=== PATIENT | female | born 1940 | race Caucasian/White ===

== ENCOUNTER → 2020-08-27 08:06 | Outpatient (BNVA) | payer MEDICARE, SELFPAY | PROVIDERS: PCP Internal Medicine; Referring Provider Internal Medicine; Visit Provider Obstetrics & Gynecology | DX: N39.46 Mixed incontinence (principal) | CPT/HCPCS: 81002; 99203 ==

== ENCOUNTER 2020-11-10 10:26 | Outpatient (REF) | payer MEDICARE, SELFPAY ==
--- NOTE | 2020-11-10 10:30 | MM_ITS ---
EXAMINATION: MM SCREENING DIGITAL BREAST TOMOSYNTHESIS, BILATERAL CLINICAL INFORMATION: Left breast cancer 2016. Remote right breast biopsy. COMPARISON: Mammography: 11/06/2019, 10/22/2018, 10/18/2017 TECHNIQUE: Digital breast tomosynthesis is performed in both the craniocaudal and mediolateral oblique views along with computer-aided detection (CAD). Synthesized 2D images are generated from the tomosynthesis. FINDINGS: The breasts are heterogeneously dense, which may obscure small masses (ACR BI-RADS breast composition Category c). Parenchymal pattern is similar to prior studies. There are minor postsurgical changes again seen left breast and biopsy clip marker right breast lower inner quadrant. Scattered bilateral asymmetries are stable. There is no developing density. No abnormal calcifications. No significant changes from prior exams. MM/MM tomosynthesis screening BI IMPRESSION: No significant changes from prior exams. ASSESSMENT: BI-RADS 2: Benign RECOMMENDATION: Routine annual mammography screening. This patient's information was entered into a reminder system with a target due date for their next mammogram.
== END 2020-11-10 10:27 | disposition home or self-care (01) ==
LOC: HO.MAMMO 10:26
PROVIDERS: PCP Internal Medicine; Visit Provider Surgery
DX: Z12.31 Encounter for screening mammogram for malignant neoplasm of breast (principal)
CPT/HCPCS: 77063; 77067

== ENCOUNTER → 2020-11-26 10:15 | Outpatient (BNVA) | payer MEDICARE, SELFPAY | PROVIDERS: PCP Internal Medicine; Visit Provider Surgery | DX: Z85.3 Personal history of malignant neoplasm of breast (principal) | CPT/HCPCS: 99212 ==

== ENCOUNTER → 2020-12-08 14:44 | Outpatient (BNVA) | payer MEDICARE, SELFPAY | PROVIDERS: PCP Internal Medicine; Visit Provider Surgery | DX: Z85.3 Personal history of malignant neoplasm of breast (principal) | CPT/HCPCS: 99212 ==

== ENCOUNTER → 2021-05-13 11:01 | Outpatient (BNVA) | payer MEDICARE, SELFPAY | PROVIDERS: PCP Internal Medicine; Referring Provider Internal Medicine; Visit Provider Surgery | DX: Z85.3 Personal history of malignant neoplasm of breast (principal) | CPT/HCPCS: 99212 ==

== ENCOUNTER 2021-08-04 07:54 | Outpatient (REF) | payer MEDICARE, SELFPAY ==
[2021-08-04 09:30] LABS: TSH reflex Free T4 0.88 uIU/mL (0.32-4.0)
== END 2021-08-04 07:55 | disposition home or self-care (01) ==
LOC: HO.LAB 07:54
PROVIDERS: PCP Internal Medicine; Visit Provider Internal Medicine Endocrinology, Diabetes & Metabolism
DX: E04.9 Nontoxic goiter, unspecified (principal)
CPT/HCPCS: 36415; 84443

== ENCOUNTER 2021-08-06 09:12 | Outpatient (REF) | payer MEDICARE, SELFPAY ==
[2021-08-06 10:31] LABS: MANUAL DIFF FLAG NO
[2021-08-06 10:41] LABS: Basophils Percent Auto 0.6 % (0-2); Eosinophils Absolute Auto 0.1 X10*3/uL (0.0-0.4); Eosinophils Percent Auto 2.3 % (0-4); Hematocrit 39.4 % (37-47); Hemoglobin 12.8 g/dl (12.0-16.0); Imm Gran Abs Auto 0.01 X10*3/uL (0.00-0.03); Imm Gran Pct Auto 0.2 % (0.0-0.4); Lymphocytes Absolute Auto 1.5 X10*3/uL (1.2-4.9); Lymphocytes Percent Auto 30.9 % (20-40); Mean Corpuscular HGB Conc 32.5 g/dl (31.0-35.0); Mean Corpuscular Hemoglobin 30.3 pg (27.0-33.0); Mean Corpuscular Volume 93.4 fL (80-98); Mean Platelet Volume 9.1 fL (9.4-12.3); Monocytes Absolute Auto 0.5 X10*3/uL (0.1-1.2); Monocytes Percent Auto 10.8 % (2-11); Neutrophils Absolute Auto 2.6 X10*3/uL (2.0-8.3); Neutrophils Percent Auto 55.2 % (45-73); Platelet Count 272 X10*3/uL (160-400); Red Blood Count 4.22 X10*6/uL (4.20-5.50); Red Cell Distribution Width 13.3 % (11.0-16.0); White Blood Count 4.7 X10*3/uL (4.8-10.8)
[2021-08-06 10:55] LABS: Alanine Aminotransferase 19 U/L (0-31); Aspartate Amino Transferase 23 U/L (5-31); Cholesterol 181 mg/dL; HDL Cholesterol 50 mg/dL; LDL Cholesterol Calculated 119 mg/dl; Triglycerides 63 mg/dL
[2021-08-06 11:32] LABS: Vitamin D 25-OH Total 61.3 ng/mL (>30)
== END 2021-08-06 09:13 | disposition home or self-care (01) ==
LOC: HO.LAB 09:12
PROVIDERS: PCP Internal Medicine; Visit Provider Internal Medicine
DX: D12.6 Benign neoplasm of colon, unspecified (principal); E04.2 Nontoxic multinodular goiter; M85.852 Other specified disorders of bone density and structure, left thigh
CPT/HCPCS: 36415; 80061; 82306; 84450; 84460; 85025

== ENCOUNTER 2021-11-23 10:09 | Outpatient (REF) | payer MEDICARE, SELFPAY ==
--- NOTE | ~2021-11-23 | MM_ITS ---
EXAMINATION: MM SCREENING DIGITAL BREAST TOMOSYNTHESIS, BILATERAL CLINICAL INFORMATION: Lumpectomy for invasive left breast cancer, 12/01/2016. Due for yearly exam. COMPARISON: Mammography: 11/10/2020, 11/06/2019, 10/22/2018, 10/18/2017, 12/01/2016 TECHNIQUE: Digital breast tomosynthesis is performed in both the craniocaudal and mediolateral oblique views along with computer-aided detection (CAD). Synthesized 2D images are generated from the tomosynthesis. FINDINGS: The breasts are heterogeneously dense, which may obscure small masses (ACR BI-RADS breast composition Category c). There are post therapy changes left breast with mild reduced breast size and minor scarring. Biopsy clip marker again noted on right lower inner quadrant. Neither breast shows interval mass or architectural abnormality or abnormal calcifications. No significant changes. MM/MM tomosynthesis screening BI IMPRESSION: No mammographic evidence of malignancy. Mild post therapy changes on left. ASSESSMENT: BI-RADS 2: Benign RECOMMENDATION: Routine annual mammography screening. This patient's information was entered into a reminder system with a target due date for their next mammogram.
--- NOTE | ~2021-11-23 | MM_ITS ---
EXAMINATION: BONE DENSITOMETRY CLINICAL INDICATION: Menopause. COMPARISON: Previous BD dated 02/22/2019 and baseline BD dated 11/11/2008. TECHNIQUE: Using a [employer] DXA System (software version: 13.1) manufactured by [employer], dual-energy x-ray absorptiometry was performed of the lumbar spine and left hip. The images are of good technical quality. Summary results are attached. FINDINGS: AP SPINE L1-L4: There is dextrocurvature lumbar spine and multilevel degenerative changes which may cause overestimation of the lumbar bone mineral density. Current: BMD 1.199 g/cm2, Z-score 2., T-score 0.2, normal, 1.7% increase from previous, 3.7% increase from baseline (<5% change is not significant). Prior: BMD 1.179 g/cm2. Baseline: BMD 1.156 g/cm2. LEFT FEMUR, NECK: Current: BMD 0.733 g/cm2, Z-score 0.1, T-score -2.2, osteopenia. Prior: BMD 0.750 g/cm2. Baseline: BMD 0.808 g/cm2. LEFT FEMUR, TOTAL: Current: BMD 0.787 g/cm2, Z-score 0.4, T-score -1.8, osteopenia, 2.5% decrease from previous, 7.8% decrease from baseline (<5% change is not significant). Prior: BMD 0.807 g/cm2. Baseline: BMD 0.854 g/cm2. IDENTIFIED RISK FACTORS: Menopause, height loss, history of fracture (adult). HISTORY OF FRACTURE: Femur/hip. MEDICATIONS: Vitamin D. MM/XR DEXA axial skeleton IMPRESSION: 1. DIAGNOSIS: Osteopenia based on the lowest T-score value of -2.2 in the femoral neck applying World Health Organization criteria. 2. 10-YEAR FRACTURE RISK PREDICTION, FRAX: Major osteoporotic fracture (clinical spine, forearm, hip or shoulder) 23.9%. Hip fracture 7.4%. 3. Treatment Recommendations: NOF guidelines recommend consideration for treatment in postmenopausal women and men age 50 and older presenting with the following: -A hip or vertebral (clinical or morphometric) fracture. -T-score less than or equal to -2.5 at the femoral neck or spine after appropriate evaluation to exclude secondary causes. -Low bone mass at the hip or spine and a 10-year fracture probability by FRAX of greater than or equal to 3% for hip fracture or greater than or equal to 20% for major osteoporotic fracture based on the [place] adapted WHO algorithm. 4. Other Recommendations: All treatment decisions require clinical judgment and consideration of individual patient factors, including patient preferences, comorbidities, previous drug use, risk factors not captured in the FRAX model (e.g. frailty, falls, vitamin D deficiency, increased bone turnover, interval significant decline in bone density) and possible under or overestimation of fracture risk by FRAX. Additional medical evaluation for secondary cause of low bone mineral density may be appropriate. FUTURE SCAN RECOMMENDATION: People with diagnosed cases of osteoporosis or at high risk for fracture should have regular bone mineral density tests. For patients eligible for Medicare, routine testing is allowed once every 2 years. The testing frequency can be increased to one year for patients who have rapidly progressing disease, those who are receiving or discontinuing medical therapy to restore bone mass, or have additional risk factors.
== END 2021-11-23 10:10 | disposition home or self-care (01) ==
LOC: HO.MAMMO 10:09
PROVIDERS: Visit Provider Internal Medicine
DX: Z12.31 Encounter for screening mammogram for malignant neoplasm of breast (principal); Z13.820 Encounter for screening for osteoporosis; M85.852 Other specified disorders of bone density and structure, left thigh; Z78.0 Asymptomatic menopausal state
CPT/HCPCS: 77063; 77067; 77080

== ENCOUNTER → 2021-11-29 11:06 | Outpatient (BNVA) | payer MEDICARE, SELFPAY | PROVIDERS: PCP Internal Medicine; Referring Provider Internal Medicine; Visit Provider Surgery | DX: Z85.3 Personal history of malignant neoplasm of breast (principal) | CPT/HCPCS: 99212 ==

== ENCOUNTER 2022-06-03 15:59 | Outpatient (REF) | payer MEDICARE, SELFPAY ==
--- NOTE | ~2022-06-03 | US_ITS ---
EXAMINATION: US THYROID CLINICAL INFORMATION: Nontoxic goiter. COMPARISON: Ultrasound soft tissue head/neck thyroid dated 06/19/2019 and 03/29/2018. TECHNIQUE: Linear transducer grayscale and color Doppler examination with attention to the region of the thyroid. FINDINGS: SIZE: Measurements of the thyroid lobes and nodules are given in sagittal, anteroposterior and transverse dimensions respectively. Right Thyroid Lobe: 7.3 x 3.2 x 3.0 cm, volume 36.7 mL. Previously 7.3 x 3.7 x 3.1 cm, volume 42.6 mL. Parenchyma: The gland echotexture is heterogeneous. Thyroid vascularity is increased. Left Thyroid Lobe: 6.8 x 3.7 x 3.1 cm, volume 40.8 mL. Previously 7.0 x 4.0 x 3.3 cm, volume 48.2 mL. Parenchyma: The gland echotexture is heterogeneous. Thyroid vascularity is increased. Isthmus: 2.2 cm in maximum AP dimension. Previously 1.4 cm. Estimated total number of nodules greater than or equal to 1 cm: 1. Steel Cutter nodules are described as follows: 1. Location: Left superior. Size: 1.3 x 0.7 x 1.1 cm, volume 0.5 mL. Previously: 1.3 x 0.7 x 1.1 cm, volume 0.5 mL. Nodule characteristics: Composition: Solid/almost completely solid (2). Echogenicity: Hypoechoic (2). Shape: Not taller than wide (0). Margins: Smooth (0). Echogenic Foci: Punctate echogenic foci (3). ACR TI-RADS total points: 7 ACR TI-RADS category: 5 Significant change in size (>/= 20% in 2 dimensions and minimal increase of 2 mm or 50% or greater increase in volume): None Change in features: None Change in ACR TI-RADS risk category: Not applicable NODES: No lymphadenopathy is seen in the tissue surrounding the thyroid gland. US/US thyroid IMPRESSION: Heterogeneous increased and hypervascular thyroid gland, likely goiter. There is a solitary nodule left upper pole which is stable. ACR TI-RADS RECOMMENDATION REFERENCE: Ultrasound-guided fine-needle aspiration, followup ultrasound, no further follow up. * TR1 (0 point) and TR 2 (2 points): No FNA or follow up * TR3 (3 points): FNA if more than or equal to 2.5 cm in maximum dimension, followup ultrasound in 1, 3 and 5 years if 1.5 to 2.4 cm in maximum dimension. * TR4 (4-6 points): FNA if more than or equal to 1.5 cm in maximum dimension, followup ultrasound in 1, 2, 3 and 5 years if 1 to 1.4 cm in maximum dimension. * TR5 (more than or equal to 7 points): FNA if more than or equal to 1 cm in maximum dimension, followup ultrasound every year for 5 years if 0.5 to 0.9 cm in maximum dimension. * TR3, TR4 or TR5 nodules that are below the size threshold for follow up receive no follow up.
== END 2022-06-03 16:00 | disposition home or self-care (01) ==
LOC: HO.US 15:59
PROVIDERS: PCP Internal Medicine; Visit Provider Internal Medicine Endocrinology, Diabetes & Metabolism
DX: E04.9 Nontoxic goiter, unspecified (principal)
CPT/HCPCS: 76536

== ENCOUNTER → 2022-06-13 10:45 | Outpatient (BNVA) | payer MEDICARE, SELFPAY | PROVIDERS: PCP Internal Medicine; Visit Provider Surgery | DX: Z85.3 Personal history of malignant neoplasm of breast (principal) | CPT/HCPCS: 99212 ==

== ENCOUNTER 2022-11-29 11:27 | Outpatient (REF) | payer MEDICARE, SELFPAY ==
--- NOTE | ~2022-11-29 | MM_ITS ---
EXAMINATION: MM SCREENING DIGITAL BREAST TOMOSYNTHESIS, BILATERAL CLINICAL INFORMATION: Screening. Asymptomatic. Left IDC status post lumpectomy 12/01/2016. Family history breast cancer, sister. Due for yearly. COMPARISON: Mammography: 11/23/2021, 11/10/2020, 11/06/2019, 10/22/2018, 10/18/2017 TECHNIQUE: Digital breast tomosynthesis is performed in both the craniocaudal and mediolateral oblique views along with computer-aided detection (CAD). Synthesized 2D images are generated from the tomosynthesis. FINDINGS: The breasts are heterogeneously dense, which may obscure small masses (ACR BI-RADS breast composition Category c). Parenchymal pattern is similar to prior studies. No significant mass or abnormal calcifications. There is no developing density or architectural abnormality. Minor post surgical changes again seen on the left. The axilla are unremarkable. No significant changes. MM/MM tomosynthesis screening BI IMPRESSION: No mammographic evidence of malignancy. ASSESSMENT: BI-RADS 2: Benign RECOMMENDATION: Routine annual mammography screening. This patient's information was entered into a reminder system with a target due date for their next mammogram.
== END 2022-11-29 11:28 | disposition home or self-care (01) ==
LOC: HO.MAMMO 11:27
PROVIDERS: PCP Internal Medicine; Visit Provider Internal Medicine
DX: Z12.31 Encounter for screening mammogram for malignant neoplasm of breast (principal)
CPT/HCPCS: 77063; 77067

== ENCOUNTER → 2022-12-05 14:02 | Outpatient (BNVA) | payer MEDICARE, SELFPAY | PROVIDERS: PCP Internal Medicine; Visit Provider Surgery | DX: Z85.3 Personal history of malignant neoplasm of breast (principal) | CPT/HCPCS: 99212 ==

== ENCOUNTER 2023-02-14 13:47 | Outpatient (AMB) | payer MEDICARE, SELFPAY ==
[2023-02-14 13:50] VITALS: BP 138/90; PULSE 97; TEMP 36.1; O2SAT 99; BMI 24.5
--- NOTE | 2023-02-14 13:50 | A.OFFPC_ITS ---
Vital Signs 02/14/23 13:50 Height 5 ft 2 in Weight 134 lb 8 oz BMI 24.5 BP 138/90 H Blood Pressure Location Lt brachial Position Sitting Pulse 97 Pulse Source Pulse Oximeter Temp 97.0 F Temp Source Skin Pulse Oximetry (%) 99 Oxygen Delivery Method Room Air Intake Visit Reasons: Transfer Care from Intake Note: Pt is here for f/u and having alot of pain left side back Sealer Operator Required: No Accompanied by: Self / Same As Patient Allergies iodine [IODINE] Allergy (Unknown, Verified 08/22/23 14:00) RASH, rash, itching, redness latex Allergy (Unknown, Verified 08/22/23 14:00) rash Medication List - Last Reconciled 02/14/23 by Pilo Kemp MD aspirin 81 mg PO DAILY cholecalciferol (vitamin D3) 50 mcg PO DAILY multivitamin (Daily Multi-Vitamin tablet) 1 tab PO DAILY Tobacco use date assessed: 02/14/23 Fall risk assessment: No Falls in past year Last assessed Fall Risk: 02/14/23 [facility] Transfer Care from HPI Details Patient comes in today for her follow up visit - is transferring over from [facility] since her has me as her PCP States that she has been experiencing increased pain over her left lower back for the past 2 weeks or so Reports that she has no Hx of back injuries or problems and denies any recent injury or trauma to her lower back so she does not know what could have led to her current back pain States that she feels pain going down the posterolateral aspect of her left thigh to the lower third of thigh but the pain does not extend further into her knee Notes that the pain feels worse when she is trying to get up from or sit down into a chair and staying still for a while tends to calm down her pain States that she also has to lie down on her left side when sleeping at night and has been waken up a few times in the middle of the night from pain when she moves or changes position in bed lately States that she feels okay otherwise Denies any headaches or dizziness Denies any chest pains, no SOB No nausea/vomiting, no abdominal pain No change in bowel habits noted [facility] Medical History (Updated 08/23/23 @ 05:33 by Pilo Kemp MD) Osteopenia Vitamin D deficiency History of deep venous thrombosis (DVT) of distal vein of right lower extremity (~07/2016) Lumbar degenerative disc disease Osteopenia of left femoral neck Postmenopause 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 Tubular adenoma of colon Complex regional pain syndrome of left upper extremity Fracture of right hip History of DVT (deep vein thrombosis) Fracture of left wrist 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 History of left breast cancer Surgical History (Updated 08/23/23 @ 05:28 by Pilo Kemp MD) S/P lumpectomy, left breast History of hip surgery H/O colonoscopy History of breast biopsy Family History Father Hx of stroke associated with congenital heart disease Mother Hyperthyroidism Social History Housing: House Alcohol intake: never Patient Tobacco Use Status: Never used Tobacco e-Cigarette/Vaping Use: Never Used Current occupational status: retired Sexual orientation: Straight/Heterosexual Gender identity: Female Cognitive needs: No Hearing needs: No Vision needs: No Questionnaire PHQ-9 Over the last 2 weeks, how often have you been bothered by any of the following problems? 1. Little interest or pleasure in doing things: not at all 2. Feeling down, depressed, or hopeless: not at all 3. Trouble falling or staying asleep, or sleeping too much: not at all 4. Feeling tired or having little energy: not at all 5. Poor appetite or overeating: not at all 6. Feeling bad about yourself - or that you are a failure or have let yourself or your family down: not at all 7. Trouble concentrating on things, such as reading the newspaper or watching television: not at all 8. Moving or speaking so slowly that other people could have noticed. Or the opposite - being so fidgety or restless that you have been moving around a lot more than usual: not at all 9. Thoughts that you would be better off or of hurting yourself in some way: not at all Total score: 0 Depression Screening Interpretation: Negative 55531 - PHQ-9 Billing: Yes Source: Developed by Bonnie Trejo.W. Chacho, Yash Palacios and colleagues, with an educational ivelisse from [employer]. Thrive Questionnaire Declines Thrive assessment: No Date Thrive assessed: 02/14/23 I am a: Patient What is your living situation today?: I have a steady place to live Within the past 12 months, did the food you bought not last and you didn't have the money to get more?: Never true Within the past 12 months, did you worry whether your food would run out before you got money to buy more?: Never true Do you have trouble paying for medicines?: No Do you have trouble getting transportation to medical appointments?: No Do you have trouble paying your heating and electricity bill?: No Do you have trouble taking care of your child, family member or friend?: No Do you have trouble with day-to-day activities such as bathing, preparing meals, shopping, managing finances, etc.?: No Are you currently unemployed and looking for a job?: No Are you interested in more education?: No Currently or been in a relationship where the following occur: no concerns reported AUDIT C Alcohol Use Questionnaire (AUDIT-C) 1. How often do you have a drink containing alcohol?: Never 3. How often do you have six or more drinks on one occasion?: Never Total Score: 0 Score Reviewed/Action Taken: Yes NATALIA-7 AMB Questionnaire NATALIA-7 Date NATALIA - 7 assessed: 02/14/23 Feeling nervous, anxious, or on edge: 0 = Not at all Not being able to stop or control worryin = Not at all Worrying too much about different things: 0 = Not at all Trouble relaxin = Not at all Being so restless that it is hard to sit still: 0 = Not at all Becoming easily annoyed or irritable: 0 = Not at all Feeling afraid as if something awful might happen: 0 = Not at all Total NATALIA-7 score (0-4 normal; 5-9 mild; 10-14 moderate; 15-21 severe): 0 Source: Developed by Drs. Artur Adhikari, Bonnie Flor, Yash Palacios and colleagues, with an educational ivelisse from [employer]. Review of Systems Const Denies chills, Reports fatigue, Denies fever(s) and Denies headache(s) ENT Denies dysphagia, Denies dizziness, Denies otalgia, Denies headache(s), Denies odynophagia and Denies sore throat Card Denies chest pain, Denies palpitations and Denies dyspnea Resp Denies cough and Denies dyspnea GI Denies abdominal pain, Denies constipation, Denies dysphagia, Denies heartburn, Denies diarrhea, Denies nausea, Denies odynophagia and Denies vomiting Denies difficulty voiding, Denies nocturia and Denies dysuria Musc Reports back pain (mostly over the top of the iliac crest on the left lower back) and Reports radiating pain into limb (pain radiates down posterolateral side of left thigh - see HPI) Neuro Denies dizziness and Denies headache(s) Endo Reports fatigue and Denies palpitations Physical exam (Primary Care) Vital Signs: Last Vital Signs Temp 97.0 F 02/14/23 13:50 Pulse 97 02/14/23 13:50 BP 138/90 H 02/14/23 13:50 Pulse Ox 99 02/14/23 13:50 Oxygen Delivery Method Room Air 02/14/23 13:50 BMI result Body Mass Index 24.5 Tobacco/Smoking Status: Tobacco use Status Tobacco use date assessed 02/14/23 02/14/23 13:56 Patient Tobacco Use Status Never used Tobacco 02/14/23 13:56 e-Cigarette/Vaping Use Never Used 02/14/23 13:56 PHQ-9: PHQ-9 Score PHQ-9: Total score 0 02/14/23 14:36 Depression Screening Interpretation: Negative Thrive Assessment: Date of Thrive Assessment Date Thrive assessed 02/14/23 02/14/23 13:56 Currently or been in a relationship where the following occur: no concerns reported Const General: no acute distress and alert HENMT Throat: Yes posterior oropharynx normal and Yes tonsils normal (no TP congestion) Neck Neck: Yes no lymphadenopathy and Yes supple Resp Auscultation: clear to auscultation bilaterally, no rales and no wheezes Cardio Rate: regular rate Rhythm: regular rhythm Heart sounds: no murmurs GI Palpation (GI): Soft to palpation, nontender and No hepatosplenomegaly present Back/Spine/Pelvis Other: (+) tenderness on palpation over the top of the left iliac crest Thoracic/Lumbar Spine: straight leg raise positive (left (mild)) Extrem General: Yes no clubbing, cyanosis or edema Assessment and Plan Assessment & Plan (1) Iliac crest bone pain: Code(s): M89.8X8 - Other specified disorders of bone, other site Plan: Patient states that her symptoms have been going on for at least 2 weeks now Will send her for x-rays of the pelvis and lumbar spine ELÍAS for further evaluation Will also start her for now on Tizanidine 4 mg Q HS PRN (2) Lumbar degenerative disc disease: Code(s): M51.36 - Other intervertebral disc degeneration, lumbar region Plan: Reinforced activity and weight-lifting restrictions Will send her for lumbar spine x-rays for further evaluation (3) Pure hypercholesterolemia: Code(s): E78.00 - Pure hypercholesterolemia, unspecified Plan: Reinforced low cholesterol diet Will recheck her labs and fasting lipids in 6 months for follow up (4) Multinodular non-toxic goiter: Comment: Currently euthyroid followed by Dr. High Code(s): E04.2 - Nontoxic multinodular goiter Plan: Will recheck her TFTs as well in 6 months for follow up Patient currently remains euthyroid with no acute symptoms Follow up with endocrinology (Dr. High) as scheduled (5) History of left breast cancer: Comment: Early invasive breast cancer, ER and TN positive, HER2 negative; S/P Tx with lumpectomy and radiation followed by Tx with Anastrozole x 5 years (completed in 2021) Code(s): Z85.3 - Personal history of malignant neoplasm of breast Plan: S/P Tx with lumpectomy, radiation and with aromatase inhibitors x 5 years - completed last year (2021) Mammogram done a couple of months ago (November 2022) came out normal Follow up with oncology as scheduled for continuing surveillance (6) History of deep venous thrombosis (DVT) of distal vein of right lower extremity: Onset Date: ~07/2016 Comment: occurred in July 2016 following right hip surgery at the [facility] Code(s): Z86.718 - Personal history of other venous thrombosis and embolism Plan: Had a provoked DVT following right hip surgery in 2016; has had no recurrence since Continue Aspirin 81 mg QD (7) Vitamin D deficiency: Code(s): E55.9 - Vitamin D deficiency, unspecified Plan: Continue Vitamin D3 2000 units QD (8) Osteopenia: Code(s): M85.80 - Other specified disorders of bone density and structure, unspecified site Qualifiers: Osteopenia location: femoral neck Laterality: left Qualified Code(s): M85.852 - Other specified disorders of bone density and structure, left thigh Plan: Repeat BMD last done in October 2021 revealed (+) osteopenia based on the lowest T-score value of -2.2 in the femoral neck Patient is reminded to continue with her daily oral Calcium and Vitamin D intake and also to exercise regularly and stay active to help slow down the decline in her BMD but reinforced fall precautions Plan Follow up in 6 months Orders: Orders Complete Blood Count Auto Diff 6 Months I10 - Essential (primary) hypertension Comprehensive [place]. Panel Fast 6 Months E78.00 - Pure hypercholesterolemia, unspecified Lipid Panel 6 Months E78.00 - Pure hypercholesterolemia, unspecified UA CC w/rflx Micro + Cult 6 Months R30.0 - Dysuria Vitamin D 25-OH Total 6 Months E55.9 - Vitamin D deficiency, unspecified XR lumbar spine 2-3V 02/14/23 M54.50 - Low back pain, unspecified TSH reflex Free T4 6 Months E78.00 - Pure hypercholesterolemia, unspecified XR pelvis min 3V 02/14/23 M89.8X8 - Other specified disorders of bone, other site Medications: New tizanidine 4 mg PO BEDTIME PRN 30 tabs 1RF low back pain 30 days Coding Level of Care Code Est Pt Level 4 (83420) Diagnoses Iliac crest bone pain M89.8X8 Lumbar degenerative disc disease M51.36 Pure hypercholesterolemia E78.00 Multinodular non-toxic goiter E04.2 History of left breast cancer Z85.3 History of deep venous thrombosis (DVT) of distal vein of right lower extremity Z86.718 Vitamin D deficiency E55.9 Osteopenia of neck of left femur M85.852 Osteopenia location: femoral neck Laterality: left
== END 2023-02-14 14:27 | disposition home or self-care (01) ==
LOC: HO.HMGH 13:47
PROVIDERS: PCP Internal Medicine; Visit Provider Internal Medicine
DX: E04.2 Nontoxic multinodular goiter (principal); Z85.3 Personal history of malignant neoplasm of breast; Z86.718 Personal history of other venous thrombosis and embolism; E55.9 Vitamin D deficiency, unspecified; M89.8X8 Other specified disorders of bone, other site; M51.36 Other intervertebral disc degeneration, lumbar region; E78.00 Pure hypercholesterolemia, unspecified; M85.852 Other specified disorders of bone density and structure, left thigh
CPT/HCPCS: 99214

== ENCOUNTER 2023-02-14 14:36 | Outpatient (REF) | payer MEDICARE, SELFPAY ==
--- NOTE | ~2023-02-14 | XR_ITS ---
EXAMINATION: XR LUMBOSACRAL SPINE CLINICAL INFORMATION: Low back pain. COMPARISON: None available. TECHNIQUE: Three views of the lumbosacral spine. FINDINGS: There is generalized osteopenia. Mild lumbar dextro scoliosis is seen with apex at L3. Mild multilevel degenerative disc disease is seen. Mild grade 1 anterolisthesis of L3 over L4 and L4-L5. Mild to moderate multilevel degenerative disc disease, most pronounced at L5-S1. Bilateral facet arthropathy at L4-L5 and L5-S1. There is no acute fracture. The soft tissues are unremarkable. XR/XR lumbar spine 2-3V IMPRESSION: 1. Mild lumbar dextro scoliosis. 2. Multilevel degenerative disc disease, most pronounced at L5-S1. 3. L3-L4 and L4-L5 mild grade 1 anterolisthesis.
== END 2023-02-14 14:37 | disposition home or self-care (01) ==
LOC: HO.XRAY 14:36
PROVIDERS: PCP Internal Medicine; Visit Provider Internal Medicine
DX: M54.50 Low back pain, unspecified (principal)
CPT/HCPCS: 72100

== ENCOUNTER 2023-07-06 11:18 | Outpatient (AMB) | payer MEDICARE, SELFPAY ==
[2023-07-06 11:22] VITALS: BP 130/70; PULSE 74; O2SAT 99; BMI 24.7
--- NOTE | 2023-07-06 11:22 | A.OFFPC_ITS ---
Vital Signs 07/06/23 11:22 Height 5 ft 2 in Weight 135 lb BMI 24.7 BP 130/70 Blood Pressure Location Lt brachial Position Sitting Pulse 74 Pulse Source Pulse Oximeter Pulse Oximetry (%) 99 Oxygen Delivery Method Room Air Intake Visit Reasons: Lower back pain Intake Note: pt states lower back pain [id number] with no relief Allergies iodine [IODINE] Allergy (Unknown, Verified 07/06/23 11:27) RASH, rash, itching, redness latex Allergy (Unknown, Verified 07/06/23 11:27) rash Medication List - Last Reconciled 07/06/23 by MANUEL Rivera aspirin 81 mg PO DAILY cholecalciferol (vitamin D3) 50 mcg PO DAILY multivitamin (Daily Multi-Vitamin tablet) 1 tab PO DAILY tizanidine 4 mg PO BEDTIME PRN 30 days Tobacco use date assessed: 07/06/23 Fall risk assessment: No Falls in past year Last assessed Fall Risk: 07/06/23 HPI Lower back pain HPI Details Patient is an 83-year-old female who presents today for an office visit due to bilateral constant buttock pain right greater than left radiate down to posterior thighs for the past [address] Kemp. Medical history significant for stress incontinence of urine, hypercholesterolemia, multinodular nontoxic goiter, and iliac crest bone pain. Patient reports that buttocks pain is worse with prolonged sitting and also she has pain with walking. Reports maybe mild numbness and tingling which is intermittent in her right leg. She reports taking Tylenol 1000 mg as needed with improvement in pain. She denies acute changes in bowel/bladder. No extremity weakness. She did not have this pain before. Denies low back pain. Patient reports bilateral buttock pain also worse when she is trying to sit. 01/2023 XR/XR lumbar spine 2-3V IMPRESSION: 1.? Mild lumbar dextro scoliosis. 2.? Multilevel degenerative disc disease, most pronounced at L5-S1. 3.? L3-L4 and L4-L5 mild grade 1 anterolisthesis. 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 Complex regional pain syndrome of left upper extremity Fracture of left wrist Fracture of right hip History of DVT (deep vein thrombosis) History of left breast cancer Multinodular non-toxic goiter 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 Osteopenia of left femoral neck Postmenopause Tubular adenoma of colon Surgical History H/O colonoscopy History of breast biopsy History of hip surgery S/P lumpectomy, left breast Family History Father Hx of stroke associated with congenital heart disease Mother Hyperthyroidism Social History Housing: House Alcohol intake: never Patient Tobacco Use Status: Never used Tobacco e-Cigarette/Vaping Use: Never Used Current occupational status: retired Sexual orientation: Straight/Heterosexual Gender identity: Female Cognitive needs: No Hearing needs: No Vision needs: No Questionnaire Thrive Questionnaire Date Thrive assessed: 02/14/23 AUDIT C Alcohol Use Questionnaire (AUDIT-C) 1. How often do you have a drink containing alcohol?: Never 3. How often do you have six or more drinks on one occasion?: Never Total Score: 0 Score Reviewed/Action Taken: No NATALIA-7 AMB Questionnaire NATALIA-7 Date NATALIA - 7 assessed: 02/14/23 Source: Developed by Drs. Artur Adhikari, Bonnie Flor, Yash Palacios and colleagues, with an educational ivelisse from [employer]. Review of Systems Const Denies body aches, Denies chills, Denies fever(s) and Denies headache(s) Eyes Denies change in vision ENT Denies dizziness, Denies otalgia, Denies headache(s), Denies nasal discharge, Denies sinus pain and Denies sore throat Card Denies chest pain, Denies edema, Denies lightheadedness and Denies dyspnea Resp Denies cough, Denies dyspnea and Denies wheezing GI Denies constipation, Denies diarrhea, Denies nausea and Denies vomiting Details: Chronic urinary frequency Denies dysuria Musc Details: Bilateral buttock pain Reports as per HPI, Denies myalgias, Reports numbness and Reports tingling Skin/Breast Denies rash Neuro Denies dizziness, Denies headache(s), Reports numbness and Reports tingling Aller/Immun Denies wheezing Physical exam (Primary Care) Vital Signs: Last Vital Signs Pulse 74 07/06/23 11:22 BP 130/70 07/06/23 11:22 Pulse Ox 99 07/06/23 11:22 Oxygen Delivery Method Room Air 07/06/23 11:22 BMI result Body Mass Index 24.7 Tobacco/Smoking Status: Tobacco use Status Tobacco use date assessed 07/06/23 07/06/23 11:25 Patient Tobacco Use Status Never used Tobacco 07/06/23 11:25 e-Cigarette/Vaping Use Never Used 07/06/23 11:25 Thrive Assessment: Date of Thrive Assessment Date Thrive assessed 02/14/23 07/06/23 11:25 Const General: cooperative and no acute distress Orientation/consciousness: patient oriented x3 HENMT Head: Yes normocephalic and Yes atraumatic Face and sinus: Yes sinuses nontender Mouth: oropharynx normal and moist mucous membranes Throat: Yes posterior oropharynx normal Eyes General: appearance normal, both eyes and all related structures Neck Neck: Yes normal visual inspection, Yes full ROM and Yes no lymphadenopathy Resp Effort & Inspection: normal respiratory effort and able to speak in complete sentences Auscultation: clear to auscultation bilaterally, no crackles, no rales, no rhonchi and no wheezes Cardio Rate: regular rate Rhythm: regular rhythm Heart sounds: S1 normal heart sound present, S2 normal heart sound present and no murmurs GI Palpation (GI): Soft to palpation, not firm, nontender, no guarding, not rigid and no hepatosplenomegaly Auscultation: normal bowel sounds General: No CVA tenderness Back/Spine/Pelvis Back: No CVA tenderness Thoracic/Lumbar Spine: thoraco-lumbar ROM normal, No paraspinal muscle tenderness, No thoracic spinal tenderness, No lumbar spinal tenderness and straight leg raise positive (L>R ) Pelvis: no buttock tenderness Skin General skin exam: no rashes or lesions noted Neuro General: patient oriented x3 Gait exam (Neuro): Normal gait present Extrem General: Yes full ROM and No edema Assessment and Plan Assessment & Plan (1) Iliac crest bone pain: Code(s): M89.8X8 - Other specified disorders of bone, other site Plan: Suspect musculoskeletal in origin. Physical exam with minimal positive bilateral leg raise test. Will obtain pelvis x-ray. Patient would like to hold off on physical therapy referral. Patient is to continue Tylenol 1000 mg every 8 hours p.r.n., she also to continue tizanidine 4 mg at bedtime p.r.n., will pr ovide patient with prednisone 20 mg daily for 3 days. Will notify of x-ray results. Keep appointment with PCP as scheduled or follow-up sooner as needed. Signs and symptoms reviewed when to notify provider go to the emergency department. Patient agreed with the plan. Medications: New prednisone 20 mg PO DAILY 3 days 3 tabs 0RF M89.8X8 - Other specified disorders of bone, other site Coding Level of Care Code Est Pt Level 3 (72335) Diagnoses Iliac crest bone pain M89.8X8
== END 2023-07-06 11:43 | disposition home or self-care (01) ==
PROVIDERS: PCP Internal Medicine; Visit Provider Nurse Practitioner Family
DX: M89.8X8 Other specified disorders of bone, other site (principal)
CPT/HCPCS: 99213

== ENCOUNTER 2023-07-06 11:48 | Outpatient (REF) | payer MEDICARE, SELFPAY ==
--- NOTE | ~2023-07-06 | XR_ITS ---
EXAMINATION: XR PELVIS CLINICAL INFORMATION: Disorders of bone COMPARISON: Pelvic radiographs 06/05/2013 TECHNIQUE: AP view of the pelvis. FINDINGS: No acute fracture or dislocation. Status post right hip intramedullary nail and screw fixation in anatomic alignment. No evidence of hardware fracture or complication. Atherosclerotic vascular calcification. Joint spaces are maintained. XR/XR pelvis 1-2V IMPRESSION: Status post right hip intramedullary nail and screw fixation in anatomic alignment. No evidence of hardware fracture or complication.
== END 2023-07-06 11:49 | disposition home or self-care (01) ==
LOC: HO.XRAY 11:48
PROVIDERS: PCP Internal Medicine; Visit Provider Nurse Practitioner Family
DX: M89.8X8 Other specified disorders of bone, other site (principal)
CPT/HCPCS: 72170

== ENCOUNTER 2023-08-22 13:28 | Outpatient (AMB) | payer MEDICARE, SELFPAY ==
[2023-08-22 13:30] VITALS: BP 110/70; PULSE 75; O2SAT 96; BMI 24.7
--- NOTE | 2023-08-22 13:30 | A.OFFPC_ITS ---
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 Accompanied by: Self / Same As Patient Allergies iodine [IODINE] Allergy (Unknown, Verified 08/22/23 14:00) RASH, rash, itching, redness latex Allergy (Unknown, Verified 08/22/23 14:00) rash Medication List - Last Reconciled 08/22/23 by Pilo Kemp MD aspirin 81 mg PO DAILY cholecalciferol (vitamin D3) 50 mcg PO DAILY multivitamin (Daily Multi-Vitamin tablet) 1 tab PO DAILY prednisone 20 mg PO DAILY 3 days tizanidine 4 mg PO BEDTIME PRN 30 days Tobacco use date assessed: 08/22/23 Fall risk assessment: No Falls in past year Last assessed Fall Risk: 08/22/23 Dental Screening Dental Screen Date: 08/22/23 Did you have a dental visit in the last 12 months?: Yes Did you have a dental problem in the last 6 months where you did not have access to dental care?: No Was dental information given to patient?: Patient has dentist HPI 6 month f/u HPI Details Patient comes in today for her follow up visit States that she has been experiencing increased pain over her left lower back at the area of the left SI joint for a while now Notes that the pain there feels worse at night and 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 and seems to ease up somewhat after walking for a while although it is affecting the way she walks as she has to walk slowly so as not to trigger the pain She does not recall any recent injury or trauma to her left lower back States that she feels okay otherwise She denies any headaches or dizziness Denies any chest pains, no shortness of breath No nausea/vomiting, no abdominal pain No change in bowel habits noted Was not able to get her follow-up labs done yet [facility]LY [facility], [facility] Medical History (Updated 08/23/23 @ 05:33 by Pilo Kemp MD) Osteopenia Vitamin D deficiency History of deep venous thrombosis (DVT) of distal vein of right lower extremity (~07/2016) Lumbar degenerative disc disease Osteopenia of left femoral neck Postmenopause 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 Tubular adenoma of colon Complex regional pain syndrome of left upper extremity Fracture of right hip History of DVT (deep vein thrombosis) Fracture of left wrist 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 History of left breast cancer Surgical History (Updated 08/23/23 @ 05:28 by Pilo Kemp MD) S/P lumpectomy, left breast History of hip surgery H/O colonoscopy History of breast biopsy Family History Father Hx of stroke associated with congenital heart disease Mother Hyperthyroidism Social History Housing: House Alcohol intake: never Patient Tobacco Use Status: Never used Tobacco e-Cigarette/Vaping Use: Never Used Current occupational status: retired Sexual orientation: Straight/Heterosexual Gender identity: Female Cognitive needs: No Hearing needs: No Vision needs: No Questionnaire PHQ-9 Over the last 2 weeks, how often have you been bothered by any of the following problems? 1. Little interest or pleasure in doing things: not at all 2. Feeling down, depressed, or hopeless: not at all 3. Trouble falling or staying asleep, or sleeping too much: not at all 4. Feeling tired or having little energy: not at all 5. Poor appetite or overeating: not at all 6. Feeling bad about yourself - or that you are a failure or have let yourself or your family down: not at all 7. Trouble concentrating on things, such as reading the newspaper or watching television: not at all 8. Moving or speaking so slowly that other people could have noticed. Or the opposite - being so fidgety or restless that you have been moving around a lot more than usual: not at all 9. Thoughts that you would be better off or of hurting yourself in some way: not at all Total score: 0 Depression Screening Interpretation: Negative [id number] - PHQ-9 Billing: Yes Source: Developed by Drs. Artur Adhikari, Bonnie Flor, Yash Palacios and colleagues, with an educational ivelisse from [employer]. Thrive Questionnaire Date Thrive assessed: 08/22/23 I am a: Patient What is your living situation today?: I have a steady place to live Within the past 12 months, did the food you bought not last and you didn't have the money to get more?: Never true Within the past 12 months, did you worry whether your food would run out before you got money to buy more?: Never true Do you have trouble paying for medicines?: No Do you have trouble getting transportation to medical appointments?: No Do you have trouble paying your heating and electricity bill?: No Do you have trouble taking care of your child, family member or friend?: No Do you have trouble with day-to-day activities such as bathing, preparing meals, shopping, managing finances, etc.?: No Are you currently unemployed and looking for a job?: No Are you interested in more education?: No Please select the resources that you would like help with: None Currently or been in a relationship where the following occur: no concerns reported AUDIT C Alcohol Use Questionnaire (AUDIT-C) 1. How often do you have a drink containing alcohol?: Never 3. How often do you have six or more drinks on one occasion?: Never Total Score: 0 Score Reviewed/Action Taken: Yes NATALIA-7 AMB Questionnaire NATALIA-7 Date NATALIA - 7 assessed: 08/22/23 Feeling nervous, anxious, or on edge: 0 = Not at all Not being able to stop or control worryin = Not at all Worrying too much about different things: 0 = Not at all Trouble relaxin = Not at all Being so restless that it is hard to sit still: 0 = Not at all Becoming easily annoyed or irritable: 0 = Not at all Feeling afraid as if something awful might happen: 0 = Not at all Total NATALIA-7 score (0-4 normal; 5-9 mild; 10-14 moderate; 15-21 severe): 0 Source: Developed by Drs. Artur Adhikari, Bonnie Flor, Yash Palacios and colleagues, with an educational ivelisse from [employer]. Review of Systems Const Denies chills, Denies fatigue, Denies fever(s) and Denies headache(s) ENT Denies dysphagia, Denies dizziness, Denies otalgia, Denies headache(s), Denies neck pain, Denies odynophagia and Denies sore throat Card Denies chest pain, Denies palpitations and Denies dyspnea Resp Denies cough and Denies dyspnea GI Denies abdominal pain, Denies constipation, Denies dysphagia, Denies heartburn, Denies diarrhea, Denies nausea, Denies odynophagia and Denies vomiting Denies difficulty voiding, Denies nocturia and Denies dysuria Musc Reports back pain (over the left lower back at the area of the SI joint on the left) and Denies neck pain Neuro Denies dizziness and Denies headache(s) Endo Denies fatigue and Denies palpitations Physical exam (Primary Care) Vital Signs: Last Vital Signs Pulse 75 08/22/23 13:30 BP 110/70 08/22/23 13:30 Pulse Ox 96 08/22/23 13:30 Oxygen Delivery Method Room Air 08/22/23 13:30 BMI result Body Mass Index 24.7 Tobacco/Smoking Status: Tobacco use Status Tobacco use date assessed 08/22/23 08/22/23 13:33 Patient Tobacco Use Status Never used Tobacco 08/22/23 13:33 e-Cigarette/Vaping Use Never Used 08/22/23 13:33 PHQ-9: PHQ-9 Score PHQ-9: Total score 0 08/23/23 04:59 Depression Screening Interpretation: Negative Thrive Assessment: Date of Thrive Assessment Date Thrive assessed 08/22/23 08/22/23 13:33 Currently or been in a relationship where the following occur: no concerns reported Const General: no acute distress and alert HENMT Ears: TM's normal bilaterally and EAC's normal Throat: Yes posterior oropharynx normal and Yes tonsils normal (no TP congestion) Neck Neck: Yes no lymphadenopathy and Yes supple Resp Auscultation: clear to auscultation bilaterally, no rales and no wheezes Cardio Rate: regular rate Rhythm: regular rhythm Heart sounds: no murmurs GI Palpation (GI): Soft to palpation and nontender Auscultation: normal bowel sounds Back/Spine/Pelvis Thoracic/Lumbar Spine: No lumbar spinal tenderness Sacroiliac joints: on the left tender to palpation Skin General skin exam: no rashes or lesions noted Extrem General: Yes no clubbing, cyanosis or edema Assessment and Plan Assessment & Plan (1) Pure hypercholesterolemia: Code(s): E78.00 - Pure hypercholesterolemia, unspecified Plan: Reinforced low cholesterol diet Will recheck her labs and fasting lipids ELÍAS for follow up - is advised to just use her current orders, which are still active in her chart (2) Multinodular non-toxic goiter: Comment: Currently euthyroid followed by Dr. High Code(s): E04.2 - Nontoxic multinodular goiter Plan: Will recheck her TFTs for follow up Patient currently remains euthyroid with no acute symptoms Follow up with endocrinology (Dr. High) as scheduled (3) History of left breast cancer: Comment: Early invasive breast cancer, ER and RI positive, HER2 negative; S/P Tx with lumpectomy and radiation followed by Tx with Anastrozole x 5 years (completed in 2021) Code(s): Z85.3 - Personal history of malignant neoplasm of breast Plan: S/P Tx with lumpectomy, radiation and with aromatase inhibitors x 5 years - com pleted in 2021 Mammogram done in November 2022 came out normal Follow up with oncology as scheduled for continuing surveillance (4) Lumbar degenerative disc disease: Code(s): M51.36 - Other intervertebral disc degeneration, lumbar region Plan: Reinforced activity and weight-lifting restrictions Lumbar spine x-rays done in January 2023 revealed (+) mild lumbar dextroscoliosis, with multilevel degenerative disc disease that appears most pronounced at L5-S1. Also (+) L3-L4 and L4-L5 mild grade 1 anterolisthesis Continue Tizanidine 4 mg Q HS PRN (5) Pain of left sacroiliac joint: Code(s): M53.3 - Sacrococcygeal disorders, not elsewhere classified Plan: Will send her for x-rays of the left SI joint for further evaluation Will start her on some Lidocaine 5% patches to apply to the painful area over her left SI joint QD PRN for symptomatic relief (6) History of deep venous thrombosis (DVT) of distal vein of right lower extremity: Onset Date: ~07/2016 Comment: occurred in July 2016 following right hip surgery at the [facility] Code(s): Z86.718 - Personal history of other venous thrombosis and embolism Plan: Provoked DVT following right hip surgery in 2015; has had no recurrence since Continue Aspirin 81 mg QD (7) Vitamin D deficiency: Code(s): E55.9 - Vitamin D deficiency, unspecified Plan: Continue Vitamin D3 2000 units QD (8) Osteopenia: Code(s): M85.80 - Other specified disorders of bone density and structure, unspecified site Qualifiers: Osteopenia location: femoral neck Laterality: left Qualified Code(s): M85.852 - Other specified disorders of bone density and structure, left thigh Plan: Reinforced fall precautions Repeat BMD last done in October 2021 revealed (+) osteopenia based on the lowest T-score value of -2.2 in the femoral neck She is reminded to continue with her daily oral Calcium and Vitamin D intake and to exercise regularly and stay active to help slow down the decline in her BMD but to be careful and avoid falls and potential injuries Plan Follow up in 6 months Orders: Orders XR sacroiliac joint min 3V 08/22/23 M53.3 - Sacrococcygeal disorders, not elsewhere classified Medications: New lidocaine 5% leave on most painful area for up to 12 hrs 1 patch topical DAILY 30 ea 0RF Coding Level of Care Code Est Pt Level 4 (48734) Diagnoses Pure hypercholesterolemia E78.00 Multinodular non-toxic goiter E04.2 History of left breast cancer Z85.3 Lumbar degenerative disc disease M51.36 Pain of left sacroiliac joint M53.3 History of deep venous thrombosis (DVT) of distal vein of right lower extremity Z86.718 Vitamin D deficiency E55.9 Osteopenia of neck of left femur M85.852 Osteopenia location: femoral neck Laterality: left
== END 2023-08-22 14:02 | disposition home or self-care (01) ==
PROVIDERS: PCP Internal Medicine; Visit Provider Internal Medicine
DX: E04.2 Nontoxic multinodular goiter (principal); Z86.718 Personal history of other venous thrombosis and embolism; Z85.3 Personal history of malignant neoplasm of breast; E55.9 Vitamin D deficiency, unspecified; E78.00 Pure hypercholesterolemia, unspecified; M51.36 Other intervertebral disc degeneration, lumbar region; M53.3 Sacrococcygeal disorders, not elsewhere classified; M85.852 Other specified disorders of bone density and structure, left thigh
CPT/HCPCS: 99214

== ENCOUNTER 2023-08-24 09:07 | Outpatient (REF) | payer MEDICARE, SELFPAY ==
--- NOTE | ~2023-08-24 | XR_ITS ---
EXAMINATION: XR PELVIS XR SACROILIAC JOINT CLINICAL INFORMATION: Sacrococcygeal disorders. Hip/pelvic pain. COMPARISON: Pelvic radiographs dated 07/06/2023. TECHNIQUE: AP views of the pelvis. AP and bilateral Judet views of the sacroiliac joints. FINDINGS: Proximal right hip intramedullary gilbert with distal stabilization screw as well as a proximal dynamic hip screw. No hardware fracture. No perihardware lucency to suggest loosening or infection. No acute osseous fracture. Mild bilateral hip joint space narrowing with small marginal osteophytes. No concerning lytic or blastic osseous lesion. No significant sacroiliac joint space narrowing. Tiny bilateral sacroiliac marginal osteophytes. No large periarticular erosion. Degenerative disc disease and facet arthropathy partially visualized within the lower lumbar spine. Vascular calcifications within the pelvis. Moderate stool burden. XR/XR pelvis 1-2V IMPRESSION: Right hip ORIF without evidence of hardware complication. No acute fracture or dislocation. Mild bilateral hip osteoarthritis. Minimal degenerative arthritis within the bilateral sacroiliac joints. Degenerative disc disease and facet arthropathy within the partially visualized lower lumbar spine. Moderate stool burden.
--- NOTE | ~2023-08-24 | XR_ITS ---
EXAMINATION: XR PELVIS XR SACROILIAC JOINT CLINICAL INFORMATION: Sacrococcygeal disorders. Hip/pelvic pain. COMPARISON: Pelvic radiographs dated 07/06/2023. TECHNIQUE: AP views of the pelvis. AP and bilateral Judet views of the sacroiliac joints. FINDINGS: Proximal right hip intramedullary gilbert with distal stabilization screw as well as a proximal dynamic hip screw. No hardware fracture. No perihardware lucency to suggest loosening or infection. No acute osseous fracture. Mild bilateral hip joint space narrowing with small marginal osteophytes. No concerning lytic or blastic osseous lesion. No significant sacroiliac joint space narrowing. Tiny bilateral sacroiliac marginal osteophytes. No large periarticular erosion. Degenerative disc disease and facet arthropathy partially visualized within the lower lumbar spine. Vascular calcifications within the pelvis. Moderate stool burden. XR/XR sacroiliac joint min 3V IMPRESSION: Right hip ORIF without evidence of hardware complication. No acute fracture or dislocation. Mild bilateral hip osteoarthritis. Minimal degenerative arthritis within the bilateral sacroiliac joints. Degenerative disc disease and facet arthropathy within the partially visualized lower lumbar spine. Moderate stool burden.
[2023-08-24 09:27] LABS: MANUAL DIFF FLAG NO
[2023-08-24 10:07] LABS: Basophils Percent Auto 0.5 % (0-2); Eosinophils Absolute Auto 0.2 X10*3/uL (0.0-0.4); Eosinophils Percent Auto 3.3 % (0-4); Hematocrit 39.6 % (37.0-47.0); Hemoglobin 13.1 g/dl (12.0-16.0); Imm Gran Abs Auto 0.02 X10*3/uL (0.00-0.03); Imm Gran Pct Auto 0.3 % (0.0-0.4); Lymphocytes Absolute Auto 1.7 X10*3/uL (1.2-4.9); Lymphocytes Percent Auto 27.2 % (20-40); Mean Corpuscular HGB Conc 33.1 g/dl (31.0-35.0); Mean Corpuscular Hemoglobin 30.3 pg (27.0-33.0); Mean Corpuscular Volume 91.7 fL (80.0-98.0); Mean Platelet Volume 8.8 fL (9.4-12.3); Monocytes Absolute Auto 0.6 X10*3/uL (0.1-1.2); Monocytes Percent Auto 9.8 % (2-11); Neutrophils Absolute Auto 3.6 x10*3/uL (2.0-8.3); Neutrophils Percent Auto 58.9 % (45-73); Platelet Count 327 X10*3/uL (160-400); Red Blood Count 4.32 X10*6/uL (4.20-5.50); Red Cell Distribution Width 13.2 % (11.0-16.0); White Blood Count 6.1 X10*3/uL (4.8-10.8)
[2023-08-24 10:18] LABS: Appearance Urine Clear; Color Urine Yellow; Glucose Urine UA Negative (Negative); Leukocyte Esterase Urine Moderate (2+) (Negative); Nitrite Urine Negative (Negative); Specific Gravity - Urine 1.015 (1.005-1.025); UMIC TRIGGER UACC YES; Urine Blood Negative (Negative); Urine Ketones Negative (Negative); Urine Protein Trace mg/dL (Neg-Trace)
[2023-08-24 10:24] LABS: Bacteria Urine Trace (None Seen); Hyaline Casts Urine 0-2 /LPF (0-2); Squamous Epithelial Cell Urine 0-2 /HPF (0-2); UACC Culture Trigger YES
[2023-08-24 11:28] LABS: Alanine Aminotransferase 16 U/L (0-31); Albumin Level 4.2 g/dL (3.5-5.0); Alkaline Phosphatase 44 U/L (39-117); Anion Gap 13 (12-20); Aspartate Amino Transferase 20 U/L (5-31); Bilirubin Total 0.7 mg/dL (0.0-1.0); Blood Urea Nitrogen 17 mg/dL (9-16); Calcium 9.6 mg/dL (8.4-10.2); Carbon Dioxide 26 mmol/L (22-29); Chloride 105 mmol/L (96-108); Cholesterol 208 mg/dL (<200); Estimated Glomerular Filt Rate > 60; Glucose Fasting 94 mg/dL (60-99); HDL Cholesterol 50 mg/dL (>40); LDL Cholesterol Calculated 140 mg/dL (<100); Potassium 4.3 mmol/L (3.3-5.1); Sodium 140 mmol/L (135-145); Total Protein 7.8 g/dL (6.5-8.0); Triglycerides 92 mg/dL (<150)
[2023-08-24 11:29] LABS: TSH reflex Free T4 0.88 uIU/mL (0.32-4.0); Vitamin D 25-OH Total 62.3 ng/mL (>30)
== END 2023-08-24 09:08 | disposition home or self-care (01) ==
LOC: HO.LAB 09:07
PROVIDERS: PCP Internal Medicine; Visit Provider Internal Medicine
DX: I10 Essential (primary) hypertension (principal); E55.9 Vitamin D deficiency, unspecified; E78.00 Pure hypercholesterolemia, unspecified; M53.3 Sacrococcygeal disorders, not elsewhere classified; M89.8X8 Other specified disorders of bone, other site; R82.90 Unspecified abnormal findings in urine
CPT/HCPCS: 36415; 72170; 72202; 80053; 80061; 81001; 82306; 84443; 85025; 87086

== ENCOUNTER 2023-11-06 13:34 | Outpatient (AMB) | payer MEDICARE, SELFPAY ==
[2023-11-06 13:37] VITALS: BP 130/62; PULSE 94; TEMP 36.4; O2SAT 97; BMI 25.1
--- NOTE | 2023-11-06 13:37 | AM.OFFWIN_ITS ---
Intake Vital Signs 11/06/23 13:37 Height 5 ft 2 in Weight 62.142 kg BMI 25.1 BP 130/62 Blood Pressure Location Rt brachial Position Sitting Pulse 94 Pulse Source Pulse Oximeter Temp 97.6 F Temp Source Temporal Artery Scan Pulse Oximetry (%) 97 Oxygen Delivery Method Room Air Intake Visit Reasons: EP Difficulty swallowing/Pain food comes back up Intake Note: pt is herer today for difficulty swallowing/pain food comes back up started monday Patient Tobacco Use Status: Never used Tobacco Allergies iodine [IODINE] Allergy (Unknown, Verified 11/06/23 13:38) RASH, rash, itching, redness latex Allergy (Unknown, Verified 11/06/23 13:38) rash Do you need a note to return to daycare/school/sports/work: No HPI HPI Comments History of Present Illness Details 1356 83 year old female presents w/ difficult y swallowing and keeping food down, patient reports every time she eats she feels like there is a blockage and everything comes back up, associated epigastric pain. No abdominal surgeries. No history of similar episodes. No fevers, chills, chest pain, shortness of breath, blood in vomit. 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 Tubular adenoma of colon Complex regional pain syndrome of left upper extremity Fracture of right hip History of DVT (deep vein thrombosis) Fracture of left wrist 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 History of left breast cancer Surgical History S/P lumpectomy, left breast History of hip surgery H/O colonoscopy History of breast biopsy Family History Father Hx of stroke associated with congenital heart disease Mother Hyperthyroidism Social History Housing: House Alcohol intake: never Patient Tobacco Use Status: Never used Tobacco e-Cigarette/Vaping Use: Never Used Current occupational status: retired Sexual orientation: Straight/Heterosexual Gender identity: Female Cognitive needs: No Hearing needs: No Vision needs: No Review of Systems Const Details: Constitutional : No Weight loss, No Fever, No Chills, No Fatigue, No Malaise ENT/Mouth : No sore throat, No Rhinorrhea Eyes: No Eye Pain, No Swelling, No Redness Cardiovascular : No Chest Pain, No SOB, No Dyspnea on Exertion, No Orthopnea, No Edema, No Palpitations Respiratory : No Cough, No Sputum, No Wheezing Gastrointestinal : No Nausea, No Vomiting, No Diarrhea, No Constipation, No abdominal Pain, No Hematochezia, No Melena Genitourinary : No Dysuria, No Urinary Frequency, No Hematuria, Musculoskeletal : No joint pain, No Myalgias, No Joint Swelling Skin : No Skin Lesions, No rash Neuro : No Weakness, No Numbness, No Dizziness, No Headache Psych : No Anxiety/Panic, No Depression All other systems reviewed and are negative All systems reviewed & are unremarkable except as noted in HPI and below Physical Exam Vital Signs: Last Vital Signs Temp 97.6 F 11/06/23 13:37 Pulse 94 11/06/23 13:37 BP 130/62 11/06/23 13:37 Pulse Ox 97 11/06/23 13:37 Oxygen Delivery Method Room Air 11/06/23 13:37 BMI result Body Mass Index 25.1 vss Appearance: Alert.? Oriented X3.? No acute distress.? Head: Normocephalic, atraumatic, no step-offs or deformities Eyes: Pupils equal, round and reactive to light.? CVS: Normal heart rate and rhythm.? Pulses normal.? Respiratory: No respiratory distress.? Breath sounds normal.? Abdomen: Soft and nontender.? Skin: Skin warm and dry.? Normal skin color.? Normal skin turgor.? Extremities: No lower extremity edema.? No calf ttp. 5/5 strength to bilateral upper and lower extremities Neuro: Oriented X 3.? No motor deficit.? No sensory deficit. CN 2-12 intact Assessment & Plan Assessment & Plan (1) Nausea & vomiting: Code(s): R11.2 - Nausea with vomiting, unspecified Plan [place] [facility] [place] Coding Level of Care Code Est Pt Level 3 (48260) Diagnoses Nausea & vomiting R11.2
== END 2023-11-06 13:59 | disposition home or self-care (01) ==
PROVIDERS: PCP Internal Medicine; Visit Provider Physician Assistant
DX: R11.2 Nausea with vomiting, unspecified (principal)
CPT/HCPCS: 99213

== ENCOUNTER 2023-11-06 15:18 | Emergency (ER) | payer MEDICARE, SELFPAY ==
[2023-11-06 15:26] VITALS: BP 143/83; PULSE 79; RESP 20; TEMP 36.7; O2SAT 98; BMI 23.4
--- NOTE | 2023-11-06 15:31 | ED_ITS ---
HPI - General Adult General Chief complaint: General Medical Stated complaint: problem swallowing, vomiting Time Seen by Provider: 11/06/23 19:34 Source: patient, RN notes reviewed and old records reviewed Mode of arrival: ambulatory Limitations: no limitations History of Present Illness HPI narrative: 83-year-old female presents for evaluation of difficulty swallowing. Patient reports for the last 3 days she has been unable to tolerate solid foods without vomiting back up. She has also had difficulty tolerating liquids as well. She states that she has never had trouble swallowing the past, has never had endoscopy. She reports that she believes she saw Dr. Duval a long time ago for a colonoscopy and ?everything was fine. ? Patient denies any abdominal pain She reports that when she eats she feels like ?food gets stuck right in my chest. ? She went to urgent care earlier today and referred to the ER. At the time of my evaluation the patient states that she wants to leave and does not want to stay in the ER for any further testing She was cooperative to drink a glass of water in front of me and did not have any further nausea or vomiting. Patient states this is better than she had been doing earlier in the day as even liquids would not go down. She currently has no pain Related Data Home Medications Medication Instructions Recorded Confirmed aspirin 81 mg tablet,delayed 81 mg PO DAILY 08/27/20 08/22/23 release multivitamin (Daily Multi-Vitamin 1 tab PO DAILY 08/27/20 08/22/23 tablet) cholecalciferol (vitamin D3) 50 50 mcg PO DAILY 08/08/22 08/22/23 mcg (2,000 unit) capsule Previous Rx's Medication Instructions Recorded tizanidine 4 mg tablet 4 mg PO BEDTIME PRN low back pain 05/22/23 30 days #30 tabs prednisone 20 mg tablet 20 mg PO DAILY 3 days #3 tabs 07/06/23 lidocaine 5 % topical patch 1 patch topical DAILY #30 ea 08/22/23 Allergies Allergy/AdvReac Type Severity Reaction Status Date / Time iodine [IODINE] Allergy Unknown RASH, Verified 11/06/23 15:26 rash, itching, redness latex Allergy Unknown rash Verified 11/06/23 15:26 Review of Systems 2 ENT: Reports dysphagia Cardiovascular: Cardiovascular: Denies chest pain Respiratory: Respiratory: Denies cough Gastrointestinal: Gastrointestinal: Denies abdominal pain, Reports dysphagia and Reports vomiting Musculoskeletal: Musculoskeletal: Denies back pain Integumentary/Breasts: Skin/Breast: Denies rash PMFSH Past Medical History Medical History Osteopenia Vitamin D deficiency History of deep venous thrombosis (DVT) of distal vein of right lower extremity (~07/2016) Lumbar degenerative disc disease Osteopenia of left femoral neck Postmenopause 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 Tubular adenoma of colon Complex regional pain syndrome of left upper extremity Fracture of right hip History of DVT (deep vein thrombosis) Fracture of left wrist 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 History of left breast cancer Surgical History S/P lumpectomy, left breast History of hip surgery H/O colonoscopy History of breast biopsy Family History Family History Father Hx of stroke associated with congenital heart disease Mother Hyperthyroidism Social History Social History Housing: House Alcohol intake: never Patient Tobacco Use Status: Never used Tobacco e-Cigarette/Vaping Use: Never Used Advance Directives: No Advance Directives Information Provided: Yes Current occupational status: retired Sexual orientation: Straight/Heterosexual Gender identity: Female Cognitive needs: No Hearing needs: No Vision needs: No Physical Exam ED Vital Signs: Vital Signs - 24 hr 11/06/23 15:26 11/06/23 19:35 Temperature 98.0 F Pulse Rate 79 75 Respiratory Rate 20 16 Blood Pressure 143/83 H 140/81 H Pulse Oximetry 98 96 Oxygen Delivery Method Room Air Room Air BMI result Body Mass Index 23.4 Const General: healthy appearing, comfortable, no acute distress, alert and awake Nutritional Appearance: well nourished Orientation/consciousness: patient oriented x3 HENMT Head: Yes normocephalic and Yes atraumatic Throat: Yes posterior oropharynx normal Eyes Eyelids: Yes eyelids normal Conjunctivae: conjunctivae normal Sclerae: sclerae normal Corneas: corneas normal Pupils: Equal, round and reactive pupils present EOM: EOMs intact bilaterally Neck Neck: Yes full ROM Resp Effort & Inspection: normal respiratory effort, able to speak in complete sentences and not labored Cardio Rate: regular rate Rhythm: regular rhythm GI Inspection: No distended Palpation (GI): Soft to palpation, not firm, nontender, no guarding and not rigid Skin General skin exam: no rashes or lesions noted and elasticity normal Neuro General: patient oriented x3 Cranial nerves: Yes Equal, round and reactive pupils present and Yes Bilaterally intact EOM present Cognition (Neuro): normal cognition Extrem Other: Moving all extremities well without any obvious deformities Course Course Course Narrative: Patient complains of regurgitating food and even water when ever she eats for past 3 days Right now she is comfortable she is not drooling, no distress Basic labs are ordered This is rapid medical exam pending full evaluation by ER provider Medical Decision Making Medical Decision Making MDM Narrative: I was asked to see the patient as she wanted to leave the hospital. I reviewed her workup briefly a not show any concerning abnormalities. I discussed the patient and she has never had this issue in the past. She was cooperative and willing and able to drink a glass of water in front of me without any difficulty. I reached out to GI, Dr. Duval to help expedite outpatient follow- up. I advised the patient that she should not try any solid foods in the meantime and chills she discusses with GI. She is comfortable going home on a liquid diet. Patient was advised to return if she was unable to tolerate even liquids. T bili is slightly low the patient has no abdominal tenderness. Differential Diagnosis Differential Diagnoses: The differential diagnosis associated with the presentation includes Achalasia Schatzki's rings Esophageal stricture EGJ dysfunction GERD CVA less likely Lab Data [facility] Lab Attestation statement: I reviewed the patient's lab results. No leukocytosis or anemia. No significant electrolyte abnormalities. BUN is slightly above normal at 22. The patient admits to vomiting and poor p.o. intake. LFTs within normal limits. T bili slightly elevated to 1.2 11/06/23 15:44 11/06/23 15:44 Labs: Lab Results 11/06/23 Range/Units 15:44 WBC 7.2 (4.8-10.8) X10*3/uL RBC 4.09 L (4.20-5.50) X10*6/uL Hgb 12.4 (12.0-16.0) g/dl Hct 37.9 (37.0-47.0) % MCV 92.7 (80.0-98.0) fL MCH 30.3 (27.0-33.0) pg MCHC 32.7 (31.0-35.0) g/dl RDW 13.2 (11.0-16.0) % Plt Count 279 (160-400) X10*3/uL MPV 8.6 L (9.4-12.3) fL Immature Gran % (Auto) 0.1 (0.0-0.4) % Neut % (Auto) 55.7 (45-73) % Lymph % (Auto) 32.5 (20-40) % Bee % (Auto) 10.3 (2-11) % Eos % (Auto) 1.1 (0-4) % Baso % (Auto) 0.3 (0-2) % Lymph # (Auto) 2.3 (1.2-4.9) X10*3/uL Bee # (Auto) 0.7 (0.1-1.2) X10*3/uL Eos # (Auto) 0.1 (0.0-0.4) X10*3/uL Baso # (Auto) 0.0 (0.0-0.2) X10*3/uL Abs Immat Gran (auto) 0.01 (0.00-0.03) X10*3/uL Absolute Neuts (auto) 4.0 (2.0-8.3) x10*3/uL Absolute Nucleated RBC 0.000 (0.0-0.012) X10*3/uL Nucleated RBC % (auto) 0.0 (0.0-0.2) /100WBC Sodium 137 (135-145) mmol/L Potassium 4.0 (3.3-5.1) mmol/L Chloride 104 (96-108) mmol/L Carbon Dioxide 25 (22-29) mmol/L Anion Gap 12 (12-20) BUN 22 H (9-16) mg/dL Creatinine 0.74 (0.5-1.4) mg/dL Estim Creat Clear Calc 49.7 Estimated GFR > 60 Random Glucose 103 (60-115) mg/dL Calcium 9.8 (8.4-10.2) mg/dL Total Bilirubin 1.2 H (0.0-1.0) mg/dL Direct Bilirubin 0.4 (0.0-0.5) mg/dL AST 23 (5-31) U/L ALT 18 (0-31) U/L Alkaline Phosphatase 50 (39-117) U/L Total Protein 8.3 H (6.5-8.0) g/dL Albumin 4.3 (3.5-5.0) g/dL Lipase 11 (8-78) U/L Discharge Plan Discharge Clinical Impression: Difficulty swallowing Patient Disposition: Home, Self-Care Instructions: Dysphagia (ED) Additional Instructions: It is important that you follow-up with GI. Call Dr. Duval' office tomorrow morning at number provided. I recommend that you stick to a liquid diet for the next couple days until you get in touch with GI for an upper endoscopy. It sounds like you have an esophageal stricture verses esophagogastric junction dysfunction. Return for new or worsening symptoms, especially if you are unable to tolerate any liquids at all Prescriptions: No Action tizanidine 4 mg tablet 4 mg PO BEDTIME PRN (Reason: low back pain) 30 Days Qty: 30 1RF cholecalciferol (vitamin D3) 50 mcg (2,000 unit) capsule 50 mcg PO DAILY lidocaine 5 % adhesive patch,medicated 1 patch topical DAILY Qty: 30 0RF Rx Instructions: leave on most painful area for up to 12 hrs prednisone 20 mg tablet 20 mg PO DAILY 3 Days Qty: 3 0RF multivitamin [Daily Multi-Vitamin] Tablet 1 tab PO DAILY aspirin 81 mg tablet,delayed release (DR/EC) 81 mg PO DAILY Referrals: Artur Duval MD [Physician] - (dysphagia. Sounds like esophageal stricture vs EGJ dysfunction) Interventions: ED Discharge Assessment Last Done: 11/06/23 19:50
[2023-11-06 15:50] LABS: Basophils Percent Auto 0.3 % (0-2); Eosinophils Absolute Auto 0.1 X10*3/uL (0.0-0.4); Eosinophils Percent Auto 1.1 % (0-4); Hematocrit 37.9 % (37.0-47.0); Hemoglobin 12.4 g/dl (12.0-16.0); Imm Gran Abs Auto 0.01 X10*3/uL (0.00-0.03); Imm Gran Pct Auto 0.1 % (0.0-0.4); Lymphocytes Absolute Auto 2.3 X10*3/uL (1.2-4.9); Lymphocytes Percent Auto 32.5 % (20-40); MANUAL DIFF FLAG NO; Mean Corpuscular HGB Conc 32.7 g/dl (31.0-35.0); Mean Corpuscular Hemoglobin 30.3 pg (27.0-33.0); Mean Corpuscular Volume 92.7 fL (80.0-98.0); Mean Platelet Volume 8.6 fL (9.4-12.3); Monocytes Absolute Auto 0.7 X10*3/uL (0.1-1.2); Monocytes Percent Auto 10.3 % (2-11); Neutrophils Percent Auto 55.7 % (45-73); Platelet Count 279 X10*3/uL (160-400); Red Blood Count 4.09 X10*6/uL (4.20-5.50); Red Cell Distribution Width 13.2 % (11.0-16.0); White Blood Count 7.2 X10*3/uL (4.8-10.8)
[2023-11-06 16:06] LABS: Alanine Aminotransferase 18 U/L (0-31); Albumin Level 4.3 g/dL (3.5-5.0); Alkaline Phosphatase 50 U/L (39-117); Anion Gap 12 (12-20); Aspartate Amino Transferase 23 U/L (5-31); Bilirubin Direct 0.4 mg/dL (0.0-0.5); Bilirubin Total 1.2 mg/dL (0.0-1.0); Blood Urea Nitrogen 22 mg/dL (9-16); Calcium 9.8 mg/dL (8.4-10.2); Carbon Dioxide 25 mmol/L (22-29); Chloride 104 mmol/L (96-108); Creatinine Clr Calc Pharmacy 49.7; Estimated Glomerular Filt Rate > 60; Glucose Random 103 mg/dL (60-115); Lipase 11 U/L (8-78); Sodium 137 mmol/L (135-145); Total Protein 8.3 g/dL (6.5-8.0)
[2023-11-06 19:35] VITALS: BP 140/81; PULSE 75; RESP 16; O2SAT 96
== END 2023-11-06 20:09 | disposition home or self-care (01) ==
PROVIDERS: Physician Assistant Medical; Emergency Provider Emergency Medicine; PCP Internal Medicine
DX: R13.10 Dysphagia, unspecified (principal); R11.10 Vomiting, unspecified; E78.00 Pure hypercholesterolemia, unspecified; Z86.718 Personal history of other venous thrombosis and embolism; Z85.3 Personal history of malignant neoplasm of breast; Z79.82 Long term (current) use of aspirin; Z79.899 Other long term (current) drug therapy
CPT/HCPCS: 36415; 80048; 80076; 83690; 85025; 99283; 99284

== ENCOUNTER 2023-11-08 09:50 | Outpatient (AMB) | payer MEDICARE, SELFPAY ==
[2023-11-08 09:52] VITALS: BP 122/80; BMI 23.3
--- NOTE | 2023-11-08 09:52 | A.OFFPC_ITS ---
Vital Signs 11/08/23 09:52 Height 5 ft 4 in Weight 136 lb BMI 23.3 BP 122/80 Blood Pressure Location Lt brachial Position Sitting Intake Visit Reasons: difficulty swallowing, ? of reflux Intake Note: Patient here for trouble swallowing, seen at ED at [facility] All Around Required: No Accompanied by: Self / Same As Patient Allergies iodine [IODINE] Allergy (Unknown, Verified 11/08/23 10:10) RASH, rash, itching, redness latex Allergy (Unknown, Verified 11/08/23 10:10) rash Medication List - Last Reconciled 11/08/23 by Caren Thomas MD aspirin 81 mg PO DAILY cholecalciferol (vitamin D3) 50 mcg PO DAILY multivitamin (Daily Multi-Vitamin tablet) 1 tab PO DAILY tizanidine 4 mg PO BEDTIME PRN 30 days Tobacco use date assessed: 08/22/23 Fall risk assessment: No Falls in past year Last assessed Fall Risk: 11/08/23 Dental Screening Dental Screen Date: 11/08/23 Did you have a dental visit in the last 12 months?: Yes Did you have a dental problem in the last 6 months where you did not have access to dental care?: No Was dental information given to patient?: Patient has dentist HPI HPI Comments History of Present Illness Details This is an 83-year-old female with lumbar degenerative disc disease and low vitamin-D that comes today as a hospital discharge follow-up with discharge date 11/06/2023 due to difficulty swallowing solids and liquids that started 3- 5 days ago. Denies any nausea, vomiting, loss of appetite, abdominal pain, diarrhea or constipation. Patient feels markedly improved since yesterday. Able to swallow solids and liquids. I would order a barium swallow study. ER recommended to call Gastroenterology but she wants to hold it because it improves. No weight loss. She use tizanidine as needed for low back pain and is on vitamin-D supplements for her low vitamin-D. 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 History of left breast cancer Surgical History S/P lumpectomy, left breast History of hip surgery H/O colonoscopy History of breast biopsy Family History Father Hx of stroke associated with congenital heart disease Mother Hyperthyroidism Social History Housing: House Alcohol intake: never Patient Tobacco Use Status: Never used Tobacco e-Cigarette/Vaping Use: Never Used Current occupational status: retired Sexual orientation: Straight/Heterosexual Gender identity: Female Cognitive needs: No Hearing needs: No Vision needs: No Questionnaire Thrive Questionnaire Date Thrive assessed: 08/22/23 NATALIA-7 AMB Questionnaire NATALIA-7 Date NATALIA - 7 assessed: 08/22/23 Source: Developed by Drs. Artur Adhikari, Bonnie Flor, Yash Palacios and colleagues, with an educational ivelisse from [employer]. Review of Systems Const All systems reviewed & are unremarkable except as noted in HPI and below Eyes Reports no additional complaints, Denies change in vision and Denies other visual disturbances Card Denies chest pain at rest, Denies chest pain with activity, Denies edema, Denies irregular heart rhythm, Denies claudication, Denies dyspnea, Denies dyspnea on exertion, Denies orthopnea, Denies paroxysmal nocturnal dyspnea and Denies slow heart rate Resp Denies cough, Denies dyspnea and Denies dyspnea on exertion GI Denies abdominal pain, Denies change in bowel habits, Denies excessive flatus, Denies nausea and Denies vomiting Denies urinary incontinence, Denies urinary hesitancy and Denies urinary urgency Musc Denies abnormal gait, Denies atrophy, Denies deformity and Denies limited range of motion Skin/Breast Denies bleeding lesions, Denies changing lesions and Denies rash Neuro Denies abnormal gait and Denies lack of coordination Physical exam (Primary Care) Vital Signs: Last Vital Signs BP 122/80 11/08/23 09:52 BMI result Body Mass Index 23.3 Tobacco/Smoking Status: Tobacco use Status Tobacco use date assessed 08/22/23 11/08/23 10:00 Patient Tobacco Use Status Never used Tobacco 11/08/23 10:00 e-Cigarette/Vaping Use Never Used 11/08/23 10:00 Thrive Assessment: Date of Thrive Assessment Date Thrive assessed 08/22/23 11/08/23 10:00 Eyes General: appearance normal, both eyes and all related structures Eyelids: Yes eyelids normal Conjunctivae: conjunctivae normal Neck Neck: Yes normal visual inspection and Yes supple Resp Effort & Inspection: normal respiratory effort Auscultation: clear to auscultation bilaterally Cardio Jugular venous distension: no JVD Rate: regular rate Rhythm: regular rhythm Heart sounds: S1 normal heart sound present and S2 normal heart sound present Extrem General: Yes full ROM Assessment and Plan Assessment & Plan (1) Hospital discharge follow-up: Code(s): Z09 - Encounter for follow-up examination after completed treatment for conditions other than malignant neoplasm Plan: Discharge date 11/06/2023 due to difficulty swallowing solids and liquids that started few days before. Feels markedly improved now. Was advised to call Gastroenterology but she has not done it yet because it improved. No abnormality found at a ER. (2) Difficulty swallowing: Comment: solids and liquids Code(s): R13.10 - Dysphagia, unspecified Plan: Dameon swallow ordered. (3) Vitamin D deficiency: Code(s): E55.9 - Vitamin D deficiency, unspecified Plan: Continue vitamin-D supplements. (4) Lumbar degenerative disc disease: Code(s): M51.36 - Other intervertebral disc degeneration, lumbar region Plan: Use tizanidine as needed. Orders: Orders [place] barium swallow Today R13.10 - Dysphagia, unspecified Coding Level of Care Code TCM Mod MDM <= 7 Days Diagnoses Hospital discharge follow-up Z09 Difficulty swallowing R13.10 Vitamin D deficiency E55.9 Lumbar degenerative disc disease M51.36 Time Spent (min) 24
== END 2023-11-08 10:25 | disposition home or self-care (01) ==
PROVIDERS: PCP Internal Medicine; Visit Provider Internal Medicine
DX: R13.10 Dysphagia, unspecified (principal); E55.9 Vitamin D deficiency, unspecified; M51.36 Other intervertebral disc degeneration, lumbar region
CPT/HCPCS: 99213

== ENCOUNTER 2023-12-06 10:15 | Outpatient (REF) | payer MEDICARE, SELFPAY ==
--- NOTE | ~2023-12-06 | MM_ITS ---
EXAMINATION: MM SCREENING DIGITAL BREAST TOMOSYNTHESIS, BILATERAL CLINICAL INFORMATION: Screening. Asymptomatic. Left IDC status post lumpectomy 12/01/2016. Remote history benign biopsy right breast. Family history breast cancer, sister. Due for yearly. COMPARISON: Mammography: 11/29/2022, 11/23/2021, 11/10/2020, 11/06/2019, 10/22/2018, 10/18/2017 TECHNIQUE: Digital breast tomosynthesis is performed in both the craniocaudal and mediolateral oblique views along with computer-aided detection (CAD). Synthesized 2D images are generated from the tomosynthesis. FINDINGS: The breasts are heterogeneously dense, which may obscure small masses (ACR BI-RADS breast composition Category c). There are bilateral vascular calcifications. Lumpectomy scar noted in the superior left breast with underlying mild architectural changes. Post benign biopsy clip noted right breast lower inner quadrant, middle one third. There are a few scattered benign type calcifications in both breasts without change. Stable old scarring in the right breast lateral region. No skin or axillary abnormality. No suspicious mass, or new region of architectural distortion. The overall parenchymal pattern is stable in both breasts when compared with prior exams. MM/MM tomosynthesis screening BI IMPRESSION: No mammographic evidence of malignancy. Stable benign findings as detailed. ASSESSMENT: BI-RADS BI-RADS 2 - Benign Findings RECOMMENDATION: Routine annual mammography screening. 1 year F/U This examination should not preclude the clinical evaluation of a suspicious palpable abnormality. This patient's information was entered into a reminder system with a target due date for their next mammogram.
== END 2023-12-06 10:16 | disposition home or self-care (01) ==
LOC: HO.MAMMO 10:15
PROVIDERS: PCP Internal Medicine; Visit Provider Internal Medicine
DX: Z12.31 Encounter for screening mammogram for malignant neoplasm of breast (principal)
CPT/HCPCS: 77063; 77067

== ENCOUNTER → 2023-12-06 10:30 | Outpatient (BNV) | payer MEDICARE, SELFPAY | PROVIDERS: PCP Internal Medicine; Visit Provider Radiology Diagnostic Radiology | DX: Z12.31 Encounter for screening mammogram for malignant neoplasm of breast (principal) | CPT/HCPCS: 77063; 77067 ==

== ENCOUNTER 2023-12-13 14:07 | Outpatient (AMB) | payer MEDICARE, SELFPAY ==
--- NOTE | 2023-12-13 14:16 | MHC.OFFVIS ---
Intake Vital Signs 12/13/23 14:20 Height 5 ft 4 in Intake Visit Reasons: yearly breast examination Intake Note: This patient presents for a yearly breast examination assessment. Patient c/o; reports occasional pain right breast. Credit Balance Specialist Required: No Accompanied by: Self / Same As Patient Allergies iodine [IODINE] Allergy (Unknown, Verified 12/13/23 14:21) RASH, rash, itching, redness latex Allergy (Unknown, Verified 12/13/23 14:21) rash Medication List - Last Reconciled 12/13/23 by Justin Mancilla MD aspirin 81 mg PO DAILY cholecalciferol (vitamin D3) 50 mcg PO DAILY multivitamin (Daily Multi-Vitamin tablet) 1 tab PO DAILY tizanidine 4 mg PO BEDTIME PRN 30 days HPI yearly breast examination HPI Details She is here for follow-up for her history of breast cancer. She had undergone lumpectomy and sentinel node biopsy for invasive ductal cancer in [address] Arguello. She did not undergo radiation. She did not undergo chemotherapy. She currently feels well. She denies any significant complaints. She denies any changes with regards to her breast. She had a follow-up screening mammogram done last week. This had benign findings. 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 History of left breast cancer Surgical History S/P lumpectomy, left breast History of hip surgery H/O colonoscopy History of breast biopsy Family History Father Hx of stroke associated with congenital heart disease Mother Hyperthyroidism Social History Housing: House Alcohol intake: never Patient Tobacco Use Status: Never used Tobacco e-Cigarette/Vaping Use: Never Used Current occupational status: retired Sexual orientation: Straight/Heterosexual Gender identity: Female Cognitive needs: No Hearing needs: No Vision needs: No Physical Exam Const General: comfortable and no acute distress Chest Other: No palpable breast masses, no nipple or skin changes Resp Effort & Inspection: normal respiratory effort GI Palpation (GI): Soft to palpation, not firm and nontender Assessment & Plan Assessment & Plan (1) History of left breast cancer: Comment: Early invasive breast cancer, 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 She had completed treatment with anastrozole as well in 2021 Current exam does not suggest any recurrence or any other breast mass. Her mammogram from last week showed benign findings. She may continue with regular screening mammograms at this time. I can see her in the office again next year after her mammogram. Coding Level of Care Code Est Pt Level 3 (03146) Diagnoses History of left breast cancer Z85.3
== END 2023-12-13 14:39 | disposition home or self-care (01) ==
PROVIDERS: PCP Internal Medicine; Visit Provider Surgery
DX: Z85.3 Personal history of malignant neoplasm of breast (principal)
CPT/HCPCS: 99213

== ENCOUNTER → 2023-12-13 14:07 | Outpatient (BNVA) | payer MEDICARE, SELFPAY | PROVIDERS: PCP Internal Medicine; Visit Provider Surgery | DX: Z85.3 Personal history of malignant neoplasm of breast (principal); Z92.3 Personal history of irradiation | CPT/HCPCS: 99212 ==

== ENCOUNTER 2024-01-16 10:50 | Outpatient (AMB) | payer MEDICARE, SELFPAY ==
[2024-01-16 10:59] VITALS: BP 110/68; PULSE 72; O2SAT 98; BMI 23.8
--- NOTE | 2024-01-16 10:59 | A.OFFPC_ITS ---
Vital Signs 01/16/24 10:59 Height 5 ft 4 in Weight 138 lb 8 oz BMI 23.8 BP 110/68 Blood Pressure Location Lt brachial Position Sitting Pulse 72 Pulse Source Pulse Oximeter Pulse Oximetry (%) 98 Oxygen Delivery Method Room Air Intake Visit Reasons: 6mth f/u - see comments Customer Advisor Required: No Accompanied by: Spouse Allergies iodine [IODINE] Allergy (Unknown, Verified 05/20/24 11:05) RASH, rash, itching, redness latex Allergy (Unknown, Verified 05/20/24 11:05) rash Medication List - Last Reconciled 01/16/24 by Pilo Kemp MD aspirin 81 mg PO DAILY cholecalciferol (vitamin D3) 50 mcg PO DAILY multivitamin (Daily Multi-Vitamin tablet) 1 tab PO DAILY tizanidine 4 mg PO BEDTIME PRN 30 days Tobacco use date assessed: 01/16/24 Fall risk assessment: No Falls in past year Last assessed Fall Risk: 01/16/24 Dental Screening Dental Screen Date: 01/16/24 Did you have a dental visit in the last 12 months?: Yes Did you have a dental problem in the last 6 months where you did not have access to dental care?: No Was dental information given to patient?: Patient has dentist HPI 6mth f/u - see comments HPI Details Patient comes in today for her follow up visit States that she feels okay She denies any headaches or dizziness Denies any chest pains, no SOB No nausea/vomiting, no abdominal pain No change in bowel habits noted PFSH Medical History Osteopenia Vitamin D deficiency History of deep venous thrombosis (DVT) of distal vein of right lower extremity (~07/2016) Lumbar degenerative disc disease Osteopenia of left femoral neck Postmenopause 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 Tubular adenoma of colon Complex regional pain syndrome of left upper extremity Fracture of right hip History of DVT (deep vein thrombosis) Fracture of left wrist 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 History of left breast cancer Surgical History S/P lumpectomy, left breast History of hip surgery H/O colonoscopy History of breast biopsy Family History Father Hx of stroke associated with congenital heart disease Mother Hyperthyroidism Social History Housing: House Alcohol intake: never Patient Tobacco Use Status: Never used Tobacco e-Cigarette/Vaping Use: Never Used Current occupational status: retired Sexual orientation: Straight/Heterosexual Gender identity: Female Cognitive needs: No Hearing needs: No Vision needs: No Questionnaire PHQ-9 Over the last 2 weeks, how often have you been bothered by any of the following problems? 1. Little interest or pleasure in doing things: not at all 2. Feeling down, depressed, or hopeless: not at all 3. Trouble falling or staying asleep, or sleeping too much: not at all 4. Feeling tired or having little energy: not at all 5. Poor appetite or overeating: not at all 6. Feeling bad about yourself - or that you are a failure or have let yourself or your family down: not at all 7. Trouble concentrating on things, such as reading the newspaper or watching television: not at all 8. Moving or speaking so slowly that other people could have noticed. Or the opposite - being so fidgety or restless that you have been moving around a lot more than usual: not at all 9. Thoughts that you would be better off or of hurting yourself in some way: not at all Total score: 0 Depression Screening Interpretation: Negative Depression Screening Done: Yes 00689 - PHQ-9 Billing: Yes Source: Developed by Drs. Artur Adhikari, Bonnie Flor, Yash Palacios and colleagues, with an educational ivelisse from [employer]. Thrive Questionnaire Date Thrive assessed: 01/16/24 I am a: Patient What is your living situation today?: I have a steady place to live Within the past 12 months, did the food you bought not last and you didn't have the money to get more?: Never true Within the past 12 months, did you worry whether your food would run out before you got money to buy more?: Never true Do you have trouble paying for medicines?: No Do you have trouble getting transportation to medical appointments?: No Do you have trouble paying your heating and electricity bill?: No Do you have trouble taking care of your child, family member or friend?: No Do you have trouble with day-to-day activities such as bathing, preparing meals, shopping, managing finances, etc.?: No Are you currently unemployed and looking for a job?: No Are you interested in more education?: No Please select the resources that you would like help with: None Currently or been in a relationship where the following occur: no concerns reported THRIVE Score: 0 AUDIT C Alcohol Use Questionnaire (AUDIT-C) 1. How often do you have a drink containing alcohol?: Never 3. How often do you have six or more drinks on one occasion?: Never Total Score: 0 Score Reviewed/Action Taken: Yes NATALIA-7 AMB Questionnaire NATALIA-7 Date NATALIA - 7 assessed: 01/16/24 Feeling nervous, anxious, or on edge: 0 = Not at all Not being able to stop or control worryin = Not at all Worrying too much about different things: 0 = Not at all Trouble relaxin = Not at all Being so restless that it is hard to sit still: 0 = Not at all Becoming easily annoyed or irritable: 0 = Not at all Feeling afraid as if something awful might happen: 0 = Not at all Total NATALIA-7 score (0-4 normal; 5-9 mild; 10-14 moderate; 15-21 severe): 0 Source: Developed by Drs. Artur Adhikari, Bonnie Flor, Yash Palacios and colleagues, with an educational ivelisse from [employer]. Review of Systems Const Denies chills, Denies fatigue, Denies fever(s) and Denies headache(s) ENT Denies dysphagia, Denies dizziness, Denies otalgia, Denies headache(s), Denies neck pain, Denies odynophagia and Denies sore throat Card Denies chest pain, Denies palpitations and Denies dyspnea Resp Denies cough and Denies dyspnea GI Denies abdominal pain, Denies constipation, Denies dysphagia, Denies heartburn, Denies diarrhea, Denies nausea, Denies odynophagia and Denies vomiting Denies difficulty voiding, Denies nocturia, Denies dysuria and Denies urinary urgency Musc Reports back pain (over the lower back / SI joints) and Denies neck pain Skin/Breast Denies rash Neuro Denies dizziness and Denies headache(s) Endo Denies fatigue and Denies palpitations Physical exam (Primary Care) Vital Signs: Last Vital Signs Pulse 72 01/16/24 10:59 BP 110/68 01/16/24 10:59 Pulse Ox 98 01/16/24 10:59 Oxygen Delivery Method Room Air 01/16/24 10:59 BMI result Body Mass Index 23.8 Tobacco/Smoking Status: Tobacco use Status Tobacco use date assessed 01/16/24 01/16/24 11:01 Patient Tobacco Use Status Never used Tobacco 01/16/24 11:01 e-Cigarette/Vaping Use Never Used 01/16/24 11:01 PHQ-9: PHQ-9 Score PHQ-9: Total score 0 01/16/24 11:32 Depression Screening Interpretation: Negative Thrive Assessment: Date of Thrive Assessment Date Thrive assessed 01/16/24 01/16/24 11:01 Currently or been in a relationship where the following occur: no concerns reported Const General: no acute distress and alert HENMT Ears: TM's normal bilaterally and EAC's normal Throat: Yes posterior oropharynx normal and Yes tonsils normal (no TP congestion) Neck Neck: Yes no lymphadenopathy and Yes supple Thyroid: Thyroid normal Resp Auscultation: clear to auscultation bilaterally, no rales and no wheezes Cardio Rate: regular rate Rhythm: regular rhythm Heart sounds: no murmurs GI Palpation (GI): Soft to palpation and nontender Auscultation: normal bowel sounds General: Yes no CVA tenderness Back/Spine/Pelvis Back: no CVA tenderness Thoracic/Lumbar Spine: No lumbar spinal tenderness Sacroiliac joints: on the left (mild) tender to palpation Skin General skin exam: no rashes or lesions noted Extrem General: Yes no clubbing, cyanosis or edema Assessment and Plan Assessment & Plan (1) Pure hypercholesterolemia: Code(s): E78.00 - Pure hypercholesterolemia, unspecified Plan: Reinforced low cholesterol diet As patient has not had her fasting lipids rechecked since last July (2022) when they were still elevated, will recheck her labs and fasting lipids ELÍAS for follow up (2) Multinodular non-toxic goiter: Comment: Currently euthyroid followed by Dr. High Code(s): E04.2 - Nontoxic multinodular goiter Plan: Will recheck her TFTs for follow up as well Patient currently remains euthyroid with no acute symptoms Follow up with endocrinology (Dr. 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, HER2 negative; S/P Tx with lumpectomy and radiation followed by Tx with Anastrozole x 5 years (completed in 2021) Code(s): Z85.3 - Personal history of malignant neoplasm of breast Plan: S/P Tx with lumpectomy, radiation and with aromatase inhibitors x 5 years - completed in 2021 Mammogram done in November 2022 came out normal Follow up with oncology as scheduled for continuing surveillance (4) Lumbar degenerative disc disease: Code(s): M51.36 - Other intervertebral disc degeneration, lumbar region Plan: Reinforced activity and weight-lifting restrictions Lumbar spine x-rays done in January 2023 revealed (+) mild lumbar dextroscoliosis, with multilevel degenerative disc disease that appears most pronounced at L5-S1. Also (+) L3-L4 and L4-L5 mild grade 1 anterolisthesis Continue Tizanidine 4 mg Q HS PRN (5) Pain of left sacroiliac joint: Code(s): M53.3 - Sacrococcygeal disorders, not elsewhere classified Plan: Her pelvic and SI joint x-rays done in July 2023 revealed (+) right hip ORIF without evidence of hardware complication; no acute fracture or dislocation seen. (+) mild bilateral hip osteoarthritis and minimal degenerative arthritis within the bilateral sacroiliac joints. (+) degenerative disc disease and facet arthropathy within the partially visualized lower lumbar spine. Continue Lidocaine 5% patches to apply to the painful area over her left SI joint QD PRN for symptomatic relief (6) History of deep venous thrombosis (DVT) of distal vein of right lower extremity: Onset Date: ~07/2016 Comment: occurred in July 2016 following right hip surgery at the [facility] Code(s): Z86.718 - Personal history of other venous thrombosis and embolism Plan: She had a provoked DVT following right hip surgery in 2016; has had no recurrence since Continue Aspirin 81 mg QD (7) Vitamin D deficiency: Code(s): E55.9 - Vitamin D deficiency, unspecified Plan: Continue Vitamin D3 2000 units QD (8) Osteopenia: Code(s): M85.80 - Other specified disorders of bone density and structure, unspecified site Qualifiers: Osteopenia location: femoral neck Laterality: left Qualified Code(s): M85.852 - Other specified disorders of bone density and structure, left thigh Plan: Reinforced fall precautions Repeat BMD last done in October 2021 revealed (+) osteopenia based on the lowest T-score value of -2.2 in the femoral neck She is reminded to continue with her daily oral Calcium and Vitamin D intake and to exercise regularly and stay active to help slow down the decline in her BMD but to be careful and avoid falls and potential injuries Plan Follow up in 4 months Orders: Orders Complete Blood Count Auto Diff 01/17/24 D64.9 - Anemia, unspecified Comprehensive [place]. Panel Fast 01/17/24 E78.00 - Pure hypercholesterolemia, unspecified Lipid Panel 01/17/24 E78.00 - Pure hypercholesterolemia, unspecified UA CC w/rflx Micro + Cult 01/17/24 R30.0 - Dysuria Vitamin D 25-OH Total 01/17/24 E55.9 - Vitamin D deficiency, unspecified TSH reflex Free T4 01/17/24 E78.00 - Pure hypercholesterolemia, unspecified Coding Level of Care Code Est Pt Level 4 (65650) Diagnoses Pure hypercholesterolemia E78.00 Multinodular non-toxic goiter E04.2 History of left breast cancer Z85.3 Lumbar degenerative disc disease M51.36 Pain of left sacroiliac joint M53.3 History of deep venous thrombosis (DVT) of distal vein of right lower extremity Z86.718 Vitamin D deficiency E55.9 Osteopenia of neck of left femur M85.852 Osteopenia location: femoral neck Laterality: left
== END 2024-01-16 11:55 | disposition home or self-care (01) ==
PROVIDERS: PCP Internal Medicine; Visit Provider Internal Medicine
DX: E78.00 Pure hypercholesterolemia, unspecified (principal); E04.2 Nontoxic multinodular goiter; Z85.3 Personal history of malignant neoplasm of breast; M51.36 Other intervertebral disc degeneration, lumbar region; M53.3 Sacrococcygeal disorders, not elsewhere classified; Z86.718 Personal history of other venous thrombosis and embolism; E55.9 Vitamin D deficiency, unspecified; M85.852 Other specified disorders of bone density and structure, left thigh
CPT/HCPCS: 99499

== ENCOUNTER 2024-01-17 10:09 | Outpatient (REF) | payer MEDICARE, SELFPAY ==
[2024-01-17 10:22] LABS: MANUAL DIFF FLAG NO
[2024-01-17 10:43] LABS: Basophils Percent Auto 0.5 % (0-2); Eosinophils Absolute Auto 0.2 X10*3/uL (0.0-0.4); Eosinophils Percent Auto 2.7 % (0-4); Hematocrit 40.5 % (37.0-47.0); Hemoglobin 13.2 g/dl (12.0-16.0); Imm Gran Abs Auto 0.02 X10*3/uL (0.00-0.03); Imm Gran Pct Auto 0.3 % (0.0-0.4); Lymphocytes Absolute Auto 2.1 X10*3/uL (1.2-4.9); Lymphocytes Percent Auto 33.9 % (20-40); Mean Corpuscular HGB Conc 32.6 g/dl (31.0-35.0); Mean Corpuscular Hemoglobin 30.5 pg (27.0-33.0); Mean Corpuscular Volume 93.5 fL (80.0-98.0); Monocytes Absolute Auto 0.5 X10*3/uL (0.1-1.2); Monocytes Percent Auto 8.6 % (2-11); Neutrophils Absolute Auto 3.4 x10*3/uL (2.0-8.3); Platelet Count 295 X10*3/uL (160-400); Red Blood Count 4.33 X10*6/uL (4.20-5.50); Red Cell Distribution Width 13.3 % (11.0-16.0); White Blood Count 6.3 X10*3/uL (4.8-10.8)
[2024-01-17 11:07] LABS: Appearance Urine Clear; Color Urine Yellow; Glucose Urine UA Negative (Negative); Leukocyte Esterase Urine Trace (Negative); Nitrite Urine Negative (Negative); PH 5.5 (5.0-9.0); Specific Gravity - Urine 1.025 (1.005-1.025); UMIC TRIGGER UACC YES; Urine Blood Negative (Negative); Urine Ketones Negative (Negative); Urine Protein Negative (Neg-Trace)
[2024-01-17 11:10] LABS: Bacteria Urine None Seen (None Seen); Hyaline Casts Urine 0-2 /LPF (0-2); RBC Urine 0-2 /HPF (0-2); Squamous Epithelial Cell Urine 0-2 /HPF (0-2); WBC Urine 0-5 /HPF (0-5)
[2024-01-17 11:19] LABS: Alanine Aminotransferase 24 U/L (0-31); Albumin Level 4.2 g/dL (3.5-5.0); Alkaline Phosphatase 42 U/L (39-117); Anion Gap 14 (12-20); Aspartate Amino Transferase 28 U/L (5-31); Blood Urea Nitrogen 21 mg/dL (9-16); Calcium 9.3 mg/dL (8.4-10.2); Carbon Dioxide 26 mmol/L (22-29); Chloride 105 mmol/L (96-108); Cholesterol 226 mg/dL (<200); Estimated Glomerular Filt Rate > 60; Glucose Fasting 96 mg/dL (60-99); HDL Cholesterol 52 mg/dL (>40); LDL Cholesterol Calculated 154 mg/dL (<100); Potassium 4.4 mmol/L (3.3-5.1); Sodium 141 mmol/L (135-145); Total Protein 8.1 g/dL (6.5-8.0); Triglycerides 100 mg/dL (<150)
[2024-01-17 11:34] LABS: TSH reflex Free T4 0.77 uIU/mL (0.32-4.0); Vitamin D 25-OH Total 47.1 ng/mL (>30)
== END 2024-01-17 10:10 | disposition home or self-care (01) ==
LOC: HO.LAB 10:09
PROVIDERS: PCP Internal Medicine; Visit Provider Internal Medicine
DX: R30.0 Dysuria (principal); E55.9 Vitamin D deficiency, unspecified; D64.9 Anemia, unspecified; E78.00 Pure hypercholesterolemia, unspecified
CPT/HCPCS: 36415; 80053; 80061; 81001; 81003; 82306; 84443; 85025

== ENCOUNTER 2024-03-15 12:31 | Outpatient (AMB) | payer MEDICARE, SELFPAY ==
--- NOTE | 2024-03-15 12:45 | AM.OFFVISNUR ---
Intake Intake Visit Reasons: Urinary tract infection Intake Note: Urine collected. Accompanied by: Self / Same As Patient Allergies iodine [IODINE] Allergy (Unknown, Verified 01/16/24 11:30) RASH, rash, itching, redness latex Allergy (Unknown, Verified 01/16/24 11:30) rash Results AMB Urinalysis, Automated UA Leukoctes 70 Anjana/uL Last Edit by BRANDON Titus on 03/15/24 12:48 UA Nitrite Negative Last Edit by BRANDON Titus on 03/15/24 12:48 UA Urobilinogen 0 mg/dL Last Edit by BRANDON Titus on 03/15/24 12:48 UA Protein 15 mg/dL Last Edit by BRANDON Titus on 03/15/24 12:48 UA pH 6.0 Last Edit by BRANDON Titus on 03/15/24 12:48 UA Blood 0 Francisco Javier/uL Last Edit by BRANDON Titus on 03/15/24 12:48 UA Specific [place] 1.025 Last Edit by BRANDON Titus on 03/15/24 12:48 UA Ketone Negative Last Edit by BRANDON Titus on 03/15/24 12:48 UA Bilirubin 1 mg/dL Last Edit by BRANDON Titus on 03/15/24 12:48 UA Glucose 0 mg/dL Last Edit by BRANDON Titus on 03/15/24 12:48 Coding Assessment & Plan Assessment & Plan Orders: Orders AMB Urinalysis Automated Today R30.0 - Dysuria
== END 2024-03-15 15:58 | disposition home or self-care (01) ==
LOC: HO.HMGH 12:31
PROVIDERS: PCP Internal Medicine; Visit Provider Internal Medicine
DX: R30.0 Dysuria (principal)
CPT/HCPCS: 81003

== ENCOUNTER 2024-03-15 15:59 | Outpatient (REF) | payer MEDICARE, SELFPAY | END 2024-03-15 16:00 | disposition home or self-care (01) | LOC: HO.LNP 15:59 | PROVIDERS: Visit Provider Internal Medicine | DX: N39.0 Urinary tract infection, site not specified (principal); R30.0 Dysuria | CPT/HCPCS: 87086 ==

== ENCOUNTER 2024-05-20 12:36 | Outpatient (AMB) | payer MEDICARE, SELFPAY ==
[2024-05-20 11:05] VITALS: BP 110/58; PULSE 81; O2SAT 98; BMI 24.4
--- NOTE | 2024-05-20 11:05 | MHC.PC.OV ---
Vital Signs 05/20/24 11:05 Height 5 ft 4 in Weight 142 lb 0.4 oz BMI 24.4 BP 110/58 L Blood Pressure Location Lt brachial Position Sitting Pulse 81 Pulse Source Pulse Oximeter Pulse Oximetry (%) 98 Oxygen Delivery Method Room Air Intake Visit Reasons: OA, lumbar DDD, hyperlipidemia Allergies iodine [IODINE] Allergy (Unknown, Verified 05/20/24 12:54) RASH, rash, itching, redness latex Allergy (Unknown, Verified 05/20/24 12:54) rash Medication List - Last Reconciled 05/20/24 by Pilo Kemp MD aspirin 81 mg PO DAILY cholecalciferol (vitamin D3) 50 mcg PO DAILY multivitamin (Daily Multi-Vitamin tablet) 1 tab PO DAILY tizanidine 4 mg PO BEDTIME PRN 30 days Tobacco use date assessed: 05/20/24 Fall risk assessment: No Falls in past year Last assessed Fall Risk: 05/20/24 Dental Screening Dental Screen Date: 01/16/24 HPI OA, lumbar DDD, hyperlipidemia HPI Details Patient comes in today for her follow up visit States that she feels okay She denies any headaches or dizziness Denies any chest pains, no SOB No nausea/vomiting, no abdominal pain No change in bowel habits noted Still has recurrent low back pain but states that her pain has been mostly manageable lately Is aware that her x-rays done a few months ago showed (+) OA changes in her lumbar spine and SI joint Would like to know how she did on her labs done back in December 2023 [facility] Medical History Osteopenia Vitamin D deficiency History of deep venous thrombosis (DVT) of distal vein of right lower extremity (~07/2016) Lumbar degenerative disc disease Osteopenia of left femoral neck Postmenopause 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 Tubular adenoma of colon Complex regional pain syndrome of left upper extremity Fracture of right hip History of DVT (deep vein thrombosis) Fracture of left wrist 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 History of left breast cancer Surgical History S/P lumpectomy, left breast History of hip surgery H/O colonoscopy History of breast biopsy Family History Father Hx of stroke associated with congenital heart disease Mother Hyperthyroidism Social History Housing: House Alcohol intake: never Patient Tobacco Use Status: Never used Tobacco e-Cigarette/Vaping Use: Never Used Current occupational status: retired Sexual orientation: Straight/Heterosexual Gender identity: Female Cognitive needs: No Hearing needs: No Vision needs: No Questionnaire Thrive Questionnaire Date Thrive assessed: 01/16/24 AUDIT C Alcohol Use Questionnaire (AUDIT-C) 1. How often do you have a drink containing alcohol?: Never 3. How often do you have six or more drinks on one occasion?: Never Total Score: 0 Score Reviewed/Action Taken: Yes NATALIA-7 AMB Questionnaire NATALIA-7 Date NATALIA - 7 assessed: 01/16/24 Source: Developed by Drs. Artur Adhikari, Bonnie Flor, Yash Palacios and colleagues, with an educational ivelisse from [employer]. Review of Systems Const Denies chills, Denies fatigue, Denies fever(s) and Denies headache(s) ENT Denies dysphagia, Denies dizziness, Denies otalgia, Denies headache(s), Denies neck pain, Denies odynophagia and Denies sore throat Card Denies chest pain, Denies palpitations and Denies dyspnea Resp Denies cough and Denies dyspnea GI Denies abdominal pain, Denies constipation, Denies dysphagia, Denies heartburn, Denies diarrhea, Denies nausea, Denies odynophagia and Denies vomiting Denies difficulty voiding, Denies nocturia, Denies dysuria and Denies urinary urgency Musc Reports back pain (over the lower back / SI joints) and Denies neck pain Skin/Breast Denies rash Neuro Denies dizziness and Denies headache(s) Endo Denies fatigue and Denies palpitations Physical exam (Primary Care) Vital Signs: Last Vital Signs Pulse 81 05/20/24 11:05 BP 110/58 L 05/20/24 11:05 Pulse Ox 98 05/20/24 11:05 Oxygen Delivery Method Room Air 05/20/24 11:05 BMI result Body Mass Index 24.4 Tobacco/Smoking Status: Tobacco use Status Tobacco use date assessed 05/20/24 05/20/24 11:06 Patient Tobacco Use Status Never used Tobacco 05/20/24 11:06 e-Cigarette/Vaping Use Never Used 05/20/24 11:06 Thrive Assessment: Date of Thrive Assessment Date Thrive assessed 01/16/24 05/20/24 11:06 Const General: no acute distress and alert HENMT Ears: TM's normal bilaterally and EAC's normal Throat: Yes posterior oropharynx normal and Yes tonsils normal (no TP congestion) Neck Neck: Yes no lymphadenopathy and Yes supple Thyroid: Thyroid normal Resp Auscultation: clear to auscultation bilaterally, no rales and no wheezes Cardio Rate: regular rate Rhythm: regular rhythm Heart sounds: no murmurs GI Palpation (GI): Soft to palpation and nontender Auscultation: normal bowel sounds General: Yes no CVA tenderness Back/Spine/Pelvis Back: no CVA tenderness Thoracic/Lumbar Spine: No lumbar spinal tenderness Sacroiliac joints: on the left (mild) tender to palpation Skin Rashes: no rashes Extrem General: Yes no clubbing, cyanosis or edema Results Reviewed Results Reviewed: Laboratory Tests 01/17/24 01/17/24 10:20 10:21 WBC 6.3 Hgb 13.2 Hct 40.5 Plt Count 295 Sodium 141 Potassium 4.4 Creatinine 0.74 Estimated GFR > 60 Fasting Glucose 96 Calcium 9.3 AST 28 ALT 24 Triglycerides 100 Cholesterol 226 H LDL Cholesterol, Calc 154 H HDL Cholesterol 52 25-OH Vitamin D Total 47.1 TSH 0.77 Ur Specific [place] 1.025 Urine Protein Negative Urine Glucose (UA) Negative Urine Blood Negative Urine Nitrite Negative Ur Leukocyte Esterase Trace H Assessment and Plan Assessment & Plan (1) Pure hypercholesterolemia: Code(s): E78.00 - Pure hypercholesterolemia, unspecified Plan: Results of her labs done back in December 2023 reviewed and discussed with patient - is advised that her cholesterol levels back then, especially her LDL cholesterol level, has increased further from her numbers last year (LDL cholesterol is now at 154 mg/dl) Reinforced low cholesterol diet Have discussed with patient her options at this time, which includes clamping down on her diet or start taking Rx for cholesterol - she chose to go ahead and start taking Atorvastatin 10 mg QD - Rx started States that she is familiar with this as her is also on Atorvastatin Will have her recheck her labs and fasting lipids in 4 months for follow up (2) Multinodular non-toxic goiter: Comment: Currently euthyroid followed by Dr. High Code(s): E04.2 - Nontoxic multinodular goiter Plan: Her TSH level was normal on her labs done back in December 2023 Patient currently remains euthyroid with no acute symptoms Follow up with endocrinology (Dr. 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, HER2 negative; S/P Tx with lumpectomy and radiation followed by Tx with Anastrozole x 5 years (completed in 2021) Code(s): Z85.3 - Personal history of malignant neoplasm of breast Plan: S/P Tx with lumpectomy, radiation and with aromatase inhibitors x 5 years - completed in 2021 Mammogram done in November 2023 came out normal Follow up with oncology as scheduled for continuing surveillance (4) Lumbar degenerative disc disease: Code(s): M51.36 - Other intervertebral disc degeneration, lumbar region Plan: Reinforced activity and weight-lifting restrictions Lumbar spine x-rays done in January 2023 revealed (+) mild lumbar dextroscoliosis, with multilevel degenerative disc disease that appears most pronounced at L5-S1. Also (+) L3-L4 and L4-L5 mild grade 1 anterolisthesis Continue Tizanidine 4 mg Q HS PRN States that her low back pain has been mostly manageable lately Discussed option of referring her to the pain clinic for injection Tx if her low back pain gets worse (5) Pain of left sacroiliac joint: Code(s): M53.3 - Sacrococcygeal disorders, not elsewhere classified Plan: Her pelvic and SI joint x-rays done in July 2023 revealed (+) right hip ORIF without evidence of hardware complication; no acute fracture or dislocation seen. (+) mild bilateral hip osteoarthritis and minimal degenerative arthritis within the bilateral sacroiliac joints. (+) degenerative disc disease and facet arthropathy within the partially visualized lower lumbar spine. Continue Lidocaine 5% patches to apply to the painful area over her left SI joint QD PRN for symptomatic relief (6) History of deep venous thrombosis (DVT) of distal vein of right lower extremity: Onset Date: ~07/2016 Comment: occurred in July 2016 following right hip surgery at the [facility] Code(s): Z86.718 - Personal history of other venous thrombosis and embolism Plan: She had a provoked DVT following right hip surgery in 2016; has had no recurrence since Continue Aspirin 81 mg QD (7) Vitamin D deficiency: Code(s): E55.9 - Vitamin D deficiency, unspecified Plan: Continue Vitamin D3 2000 units QD (8) Osteopenia: Code(s): M85.80 - Other specified disorders of bone density and structure, unspecified site Qualifiers: Osteopenia location: femoral neck Laterality: left Qualified Code(s): M85.852 - Other specified disorders of bone density and structure, left thigh Plan: Reinforced fall precautions Repeat BMD last done in October 2021 revealed (+) osteopenia based on the lowest T-score value of -2.2 in the femoral neck She is reminded to continue with her daily oral Calcium and Vitamin D intake and to exercise regularly and stay active to help slow down the decline in her BMD but to be careful and avoid falls and potential injuries Plan Follow up in 4 months Orders: Orders Complete Blood Count Auto Diff 4 Months D64.9 - Anemia, unspecified Comprehensive [place]. Panel Fast 4 Months E78.00 - Pure hypercholesterolemia, unspecified Lipid Panel 4 Months E78.00 - Pure hypercholesterolemia, unspecified UA CC w/rflx Micro + Cult 4 Months R30.0 - Dysuria Vitamin D 25-OH Total 4 Months E55.9 - Vitamin D deficiency, unspecified Medications: New atorvastatin 10 mg PO BEDTIME 90 days 90 tabs 1RF Coding Level of Care Code Est Pt Level 4 (01857) Diagnoses Pure hypercholesterolemia E78.00 Multinodular non-toxic goiter E04.2 History of left breast cancer Z85.3 Lumbar degenerative disc disease M51.36 Pain of left sacroiliac joint M53.3 History of deep venous thrombosis (DVT) of distal vein of right lower extremity Z86.718 Vitamin D deficiency E55.9 Osteopenia of neck of left femur M85.852 Osteopenia location: femoral neck Laterality: left
== END 2024-05-20 13:22 | disposition home or self-care (01) ==
PROVIDERS: PCP Internal Medicine; Visit Provider Internal Medicine
DX: E78.00 Pure hypercholesterolemia, unspecified (principal); E04.2 Nontoxic multinodular goiter; Z85.3 Personal history of malignant neoplasm of breast; M51.36 Other intervertebral disc degeneration, lumbar region; M53.3 Sacrococcygeal disorders, not elsewhere classified; Z86.718 Personal history of other venous thrombosis and embolism; E55.9 Vitamin D deficiency, unspecified; M85.852 Other specified disorders of bone density and structure, left thigh
CPT/HCPCS: 99214

== ENCOUNTER 2024-09-23 13:10 | Outpatient (AMB) | payer MEDICARE, SELFPAY ==
--- NOTE | 2024-09-23 13:21 | A.OFFPC_ITS ---
Vital Signs 09/23/24 13:22 Height 5 ft 4 in Weight 140 lb 8 oz BMI 24.1 BP 110/70 Blood Pressure Location Lt brachial Position Sitting Pulse 79 Pulse Source Pulse Oximeter Pulse Oximetry (%) 96 Oxygen Delivery Method Room Air Intake Visit Reasons: hyperlipidemia Intake Note: Patient is here to follow up on HLD. Napper Grinder Required: No Repairer Kiln Car: Present Accompanied by: Spouse Allergies iodine [IODINE] Allergy (Unknown, Verified 09/23/24 13:40) RASH, rash, itching, redness latex Allergy (Unknown, Verified 09/23/24 13:40) rash Medication List - Last Reconciled 09/23/24 by Pilo Kemp MD aspirin 81 mg PO DAILY atorvastatin 10 mg PO BEDTIME 90 days cholecalciferol (vitamin D3) 50 mcg PO DAILY multivitamin (Daily Multi-Vitamin tablet) 1 tab PO DAILY tizanidine 4 mg PO BEDTIME PRN 30 days Tobacco use date assessed: 09/23/24 Fall risk assessment: No Falls in past year Last assessed Fall Risk: 09/23/24 Dental Screening Dental Screen Date: 01/16/24 HPI hyperlipidemia HPI Details Patient comes in today for her follow up visit States that she feels okay She denies any headaches or dizziness Denies any chest pains, no increased SOB No nausea/vomiting, no abdominal pain No change in bowel habits noted She still has recurrent low back pain but states that her pain has been mostly manageable lately She was not able to get her follow up labs done prior to her appointment today [facility] Medical History Osteopenia Vitamin D deficiency History of deep venous thrombosis (DVT) of distal vein of right lower extremity (~07/2016) Lumbar degenerative disc disease Osteopenia of left femoral neck Postmenopause 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 Tubular adenoma of colon Complex regional pain syndrome of left upper extremity Fracture of right hip History of DVT (deep vein thrombosis) Fracture of left wrist 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 History of left breast cancer Surgical History S/P lumpectomy, left breast History of hip surgery H/O colonoscopy History of breast biopsy Family History Father Hx of stroke associated with congenital heart disease Mother Hyperthyroidism Social History Housing: House Alcohol intake: never Patient Tobacco Use Status: Never used Tobacco e-Cigarette/Vaping Use: Never Used Second Hand Smoke Exposure: No service: No Current occupational status: retired Sexual orientation: Straight/Heterosexual Gender identity: Female Cognitive needs: No Hearing needs: No Vision needs: Yes (Glasses) Questionnaire Thrive Questionnaire Date Thrive assessed: 01/16/24 NATALIA-7 AMB Questionnaire NATALIA-7 Date NATALIA - 7 assessed: 01/16/24 Source: Developed by Drs. Artur Adhikari, Bonnie Flor, Yash Palacios and colleagues, with an educational ivelisse from [employer]. Review of Systems Const Denies chills, Denies fatigue, Denies fever(s) and Denies headache(s) ENT Denies dysphagia, Denies dizziness, Denies otalgia, Denies headache(s), Denies neck pain, Denies odynophagia and Denies sore throat Card Denies chest pain, Denies palpitations and Denies dyspnea Resp Denies chest congestion, Denies cough and Denies dyspnea GI Denies abdominal pain, Denies constipation, Denies dysphagia, Denies heartburn, Denies diarrhea, Denies nausea, Denies odynophagia and Denies vomiting Denies difficulty voiding, Denies nocturia, Denies dysuria and Denies urinary urgency Musc Reports back pain (over the lower back / SI joints) and Denies neck pain Skin/Breast Denies rash Neuro Denies dizziness and Denies headache(s) Endo Denies fatigue and Denies palpitations Physical exam (Primary Care) Vital Signs: Last Vital Signs Pulse 79 09/23/24 13:22 BP 110/70 09/23/24 13:22 Pulse Ox 96 09/23/24 13:22 Oxygen Delivery Method Room Air 09/23/24 13:22 BMI result Body Mass Index 24.1 Tobacco/Smoking Status: Tobacco use Status Tobacco use date assessed 09/23/24 09/23/24 13:33 Patient Tobacco Use Status Never used Tobacco 09/23/24 13:33 e-Cigarette/Vaping Use Never Used 09/23/24 13:33 Thrive Assessment: Date of Thrive Assessment Date Thrive assessed 01/16/24 09/23/24 13:33 Const General: no acute distress and alert HENMT Ears: TM's normal bilaterally and EAC's normal Throat: Yes posterior oropharynx normal and Yes tonsils normal (no TP congestion) Neck Neck: Yes no lymphadenopathy and Yes supple Thyroid: Thyroid normal Resp Auscultation: clear to auscultation bilaterally, no rales and no wheezes Cardio Rate: regular rate Rhythm: regular rhythm Heart sounds: no murmurs GI Palpation (GI): Soft to palpation and nontender Auscultation: normal bowel sounds General: Yes no CVA tenderness Back/Spine/Pelvis Back: no CVA tenderness Thoracic/Lumbar Spine: No lumbar spinal tenderness Sacroiliac joints: on the left (mild) tender to palpation Skin Rashes: no rashes Extrem General: Yes no clubbing, cyanosis or edema Coding Level of Care Code Est Pt Level 4 (13858) Diagnoses Pure hypercholesterolemia E78.00 Multinodular non-toxic goiter E04.2 History of left breast cancer Z85.3 Degeneration of intervertebral disc of lumbar region with discogenic back pain M51.360 Disc-related pain type: discogenic back pain only Pain of left sacroiliac joint M53.3 History of deep venous thrombosis (DVT) of distal vein of right lower extremity Z86.718 Vitamin D deficiency E55.9 Osteopenia of neck of left femur M85.852 Osteopenia location: femoral neck Laterality: left Assessment & Plan Assessment & Plan (1) Pure hypercholesterolemia: Code(s): E78.00 - Pure hypercholesterolemia, unspecified Category: Medical Plan: Patient was not able to get her follow up labs done prior to her appointment today Have reminded her that her cholesterol levels were higher than previous when they were last checked in December 2023 so she should get her labs done ELÍAS Continue Atorvastatin 10 mg QD Will have her recheck her labs and fasting lipids in 4 to 5 months (before her next appointment in February 2025) for follow up (2) Multinodular non-toxic goiter: Comment: Currently euthyroid followed by Dr. High Code(s): E04.2 - Nontoxic multinodular goiter Category: Medical Plan: Her TSH level was normal on her labs done back in December 2023 Patient currently remains euthyroid with no acute symptoms Follow up with endocrinology (Dr. High) as scheduled (3) History of left breast cancer: Comment: Early invasive breast cancer, ER and [place] positive, HER2 negative; S/P Tx with lumpectomy and radiation followed by Tx with Anastrozole x 5 years (completed in 2021) Code(s): Z85.3 - Personal history of malignant neoplasm of breast Category: Medical Plan: S/P Tx with lumpectomy, radiation and with aromatase inhibitors x 5 years - completed in 2021 Mammogram done in November 2023 came out normal Follow up with oncology as scheduled for continuing surveillance (4) Lumbar degenerative disc disease: Code(s): M51.36 - Other intervertebral disc degeneration, lumbar region Category: Medical Qualifiers: Disc-related pain type: discogenic back pain only Qualified Code(s): M51.360 - Other intervertebral disc degeneration, lumbar region with discogenic back pain only Plan: Reinforced activity and weight-lifting restrictions Lumbar spine x-rays done in January 2023 revealed (+) mild lumbar dextroscoliosis, with multilevel degenerative disc disease that appears most pronounced at L5- S1. Also (+) L3-L4 and L4-L5 mild grade 1 anterolisthesis Continue Tizanidine 4 mg Q HS PRN Patient feels that her low back pain has been gradually getting worse lately and she now has a hard time getting up and moving around Will go ahead and refer her to pain management for evaluation for interventional Tx for her pain (5) Pain of left sacroiliac joint: Code(s): M53.3 - Sacrococcygeal disorders, not elsewhere classified Category: Medical Plan: Her pelvic and SI joint x-rays done in July 2023 revealed (+) right hip ORIF without evidence of hardware complication; no acute fracture or dislocation seen. (+) mild bilateral hip osteoarthritis and minimal degenerative arthritis within the bilateral sacroiliac joints. (+) degenerative disc disease and facet arthropathy within the partially visualized lower lumbar spine. Continue Lidocaine 5% patches to apply to the painful area over her left SI joint QD PRN for symptomatic relief but with her recently increasing low back pain and SI joint pain, will refer her to pain management (6) History of deep venous thrombosis (DVT) of distal vein of right lower extremity: Onset Date: ~07/2016 Comment: occurred in July 2016 following right hip surgery at the [facility] Code(s): Z86.718 - Personal history of other venous thrombosis and embolism Category: Medical Plan: She had a provoked DVT following right hip surgery in 2015; has had no recurrence since Continue Aspirin 81 mg QD (7) Vitamin D deficiency: Code(s): E55.9 - Vitamin D deficiency, unspecified Category: Medical Plan: Continue Vitamin D3 2000 units QD (8) Osteopenia: Code(s): M85.80 - Other specified disorders of bone density and structure, unspecified site Category: Medical Qualifiers: Osteopenia location: femoral neck Laterality: left Qualified Code(s): M85.852 - Other specified disorders of bone density and structure, left thigh Plan: Reinforced fall precautions Repeat BMD last done in October 2021 revealed (+) osteopenia based on the lowest T-score value of -2.2 in the femoral neck She is reminded to continue with her daily oral Calcium and Vitamin D intake and to exercise regularly and stay active to help slow down the decline in her BMD but to be careful and avoid falls and potential injuries Will have her repeat her BMD next spring (2024) at her next follow up appt Plan Follow up in February 2025 Orders: Orders Comprehensive [place]. 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
[2024-09-23 13:22] VITALS: BP 110/70; PULSE 79; O2SAT 96; BMI 24.1
== END 2024-09-23 14:04 | disposition home or self-care (01) ==
LOC: HO.HMCH 13:11
PROVIDERS: PCP Internal Medicine; Visit Provider Internal Medicine
DX: E78.00 Pure hypercholesterolemia, unspecified (principal); E04.2 Nontoxic multinodular goiter; Z85.3 Personal history of malignant neoplasm of breast; M51.360 Other intervertebral disc degeneration, lumbar region with discogenic back pain only; M53.3 Sacrococcygeal disorders, not elsewhere classified; Z86.718 Personal history of other venous thrombosis and embolism; E55.9 Vitamin D deficiency, unspecified; M85.852 Other specified disorders of bone density and structure, left thigh

== ENCOUNTER → 2024-09-23 13:10 | Outpatient (BNVA) | payer MEDICARE, SELFPAY | PROVIDERS: PCP Internal Medicine; Visit Provider Internal Medicine | DX: E78.00 Pure hypercholesterolemia, unspecified (principal); E04.2 Nontoxic multinodular goiter; M51.360 Other intervertebral disc degeneration, lumbar region with discogenic back pain only; M53.3 Sacrococcygeal disorders, not elsewhere classified; E55.9 Vitamin D deficiency, unspecified; M85.852 Other specified disorders of bone density and structure, left thigh; Z86.718 Personal history of other venous thrombosis and embolism; Z85.3 Personal history of malignant neoplasm of breast | CPT/HCPCS: 99212 ==

== ENCOUNTER 2024-09-27 11:14 | Outpatient (AMB) | payer MEDICARE, SELFPAY ==
[2024-09-27 11:23] VITALS: BP 112/62; PULSE 83; O2SAT 96; BMI 23.0
--- NOTE | 2024-09-27 11:23 | MHC.OFFVIS ---
Vital Signs 09/27/24 11:23 Height 5 ft 4 in Weight 134 lb BMI 23.0 BP 112/62 Blood Pressure Location Lt brachial Position Sitting Pulse 83 Pulse Source Pulse Oximeter Pulse Oximetry (%) 96 Oxygen Delivery Method Room Air Intake Visit Reasons: Low Back Pain Allergies iodine [IODINE] Allergy (Unknown, Verified 09/23/24 13:40) RASH, rash, itching, redness latex Allergy (Unknown, Verified 09/23/24 13:40) rash HPI Comments Details: Eugenia is a very pleasant 84-year-old female who presents the office today, accompanied by her sister, for evaluation management of her chronic lower back pain She has been suffering with this pain for many years, states it has been getting progressively worse over the last 6 months Denies inciting injury, fall, trauma Endorses midline lower back pain worse with bending, twisting Pain today is rated as a 6/10, constant and worse during the day Denies radiation of the pain down either lower extremity to the foot Denies red flag symptoms including new loss of bowel, bladder or saddle anesthesia Denies history physical therapy, chiropractor, acupuncture, massage or previous attempts at injection Currently taking Tylenol and tizanidine with minimal improvement of her symptoms She has not tried taking any nonsteroidal anti-inflammatory medications In terms of muscle damage condition is described as dull Pain is negatively impacting patient's enjoyment of life, general activity, normal work, walking Denies current use of anticoagulants Denies history of implantable devices, pacemaker defibrillator Denies current use of nicotine, tobacco, alcohol or illicit substances PFSH Medical History Osteopenia Vitamin D deficiency History of deep venous thrombosis (DVT) of distal vein of right lower extremity (~07/2016) Lumbar degenerative disc disease Osteopenia of left femoral neck Postmenopause 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 Tubular adenoma of colon Complex regional pain syndrome of left upper extremity Fracture of right hip History of DVT (deep vein thrombosis) Fracture of left wrist 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 History of left breast cancer Surgical History S/P lumpectomy, left breast History of hip surgery H/O colonoscopy History of breast biopsy Family History Father Hx of stroke associated with congenital heart disease Mother Hyperthyroidism Social History Housing: House Alcohol intake: never Patient Tobacco Use Status: Never used Tobacco e-Cigarette/Vaping Use: Never Used Second Hand Smoke Exposure: No service: No Current occupational status: retired Sexual orientation: Straight/Heterosexual Gender identity: Female Cognitive needs: No Hearing needs: No Vision needs: Yes (Glasses) Review of Systems Const All systems reviewed & are unremarkable except as noted in HPI and below Physical Exam Vital Signs: Last Vital Signs Pulse 83 09/27/24 11:23 BP 112/62 09/27/24 11:23 Pulse Ox 96 09/27/24 11:23 Oxygen Delivery Method Room Air 09/27/24 11:23 BMI result Body Mass Index 23.0 General: awake, alert, oriented. Answers questions appropriately. Fully engaged in examination. Skin: warm, dry, intact HEENT: Normocephalic. Hearing intact. Cardiac: External chest normal in appearance. Respiratory: No cough, audible wheezing or stridor. Abdomen: without gross distension. MS: No obvious swelling or deformities. Able to stand on bilateral tiptoes and bilateral heels.? Able to transition from sit to stand unassisted. Ambulates with bilaterally normal heel strike and toe off Decreased lumbar range of motion, pain with flexion and extension Bilateral lower extremity strength 5/5 SLR negative bilaterally Nontender over bilateral PSIS Tenderness over midline lumbar vertebrae and lumbar paraspinal muscles Facet loading positive bilaterally Neurological: Oriented to person, place, time and situation. Thought process intact. No gait abnormalities appreciated. Psychiatric: Appropriate mood and affect. Good judgment and insight. Results Reviewed Results Reviewed: 01/2023 XR/XR lumbar spine 2-3V FINDINGS: There is generalized osteopenia. Mild lumbar dextro scoliosis is seen with apex at L3. Mild multilevel degenerative disc disease is seen. Mild grade 1 anterolisthesis of L3 over L4 and L4-L5. Mild to moderate multilevel degenerative disc disease, most pronounced at L5-S1. Bilateral facet arthropathy at L4-L5 and L5-S1. There is no acute fracture. The soft tissues are unremarkable. IMPRESSION: 1. Mild lumbar dextro scoliosis. 2. Multilevel degenerative disc disease, most pronounced at L5-S1. 3. L3-L4 and L4-L5 mild grade 1 anterolisthesis. Assessment & Plan Assessment & Plan (1) Lumbar spondylosis: Code(s): M47.816 - Spondylosis without myelopathy or radiculopathy, lumbar region Category: Medical Plan Eugenia is a very pleasant 84-year-old female who presented to the office today for evaluation management of her chronic lower back pain History, physical exam and provocative testing consistent with lumbar spondylosis Order placed for PT eval and treat Topical lidocaine patches, apply to most painful area on for 12 hours off for 12 hours Naproxen 250 mg p.o. twice daily as needed. Patient advised on cautions for use All questions and concerns were answered, patient agrees with the plan. Follow up after PT, sooner if needed Orders: Orders PT Evaluation and Treatment Today M47.816 - Spondylosis without myelopathy or radiculopathy, lumbar region Medications: New lidocaine 5% leave on most painful area for up to 12 hrs 1 patch topical DAILY 15 ea 5RF naproxen Take with food, do not take with any other nonsteroidal anti-inflammatory medications 250 mg PO BID PRN 30 tabs 0RF pain Coding Level of Care Code New Pt Level 4 (24182) Complex EM visit Add On G2211 Diagnoses Lumbar spondylosis M47.816
== END 2024-09-27 11:41 | disposition home or self-care (01) ==
LOC: HO.PMC 11:15
PROVIDERS: PCP Internal Medicine; Referring Provider Internal Medicine; Visit Provider Registered Nurse Emergency
DX: M47.816 Spondylosis without myelopathy or radiculopathy, lumbar region (principal)
CPT/HCPCS: 99204; G2211

== ENCOUNTER → 2024-09-27 11:14 | Outpatient (BNVA) | payer MEDICARE, SELFPAY | PROVIDERS: PCP Internal Medicine; Referring Provider Internal Medicine; Visit Provider Registered Nurse Emergency | DX: M47.816 Spondylosis without myelopathy or radiculopathy, lumbar region (principal) | CPT/HCPCS: 99202 ==

== ENCOUNTER 2024-10-01 09:54 | Outpatient (REF) | payer MEDICARE, SELFPAY ==
[2024-10-01 10:28] LABS: MANUAL DIFF FLAG NO
[2024-10-01 11:02] LABS: Basophils Percent Auto 0.5 % (0-2); Eosinophils Absolute Auto 0.1 X10*3/uL (0.0-0.4); Eosinophils Percent Auto 2.1 % (0-4); Hematocrit 36.9 % (37.0-47.0); Hemoglobin 12.5 g/dl (12.0-16.0); Lymphocytes Absolute Auto 2.1 X10*3/uL (1.2-4.9); Lymphocytes Percent Auto 38.1 % (20-40); Mean Corpuscular HGB Conc 33.9 g/dl (31.0-35.0); Mean Corpuscular Hemoglobin 31.7 pg (27.0-33.0); Mean Corpuscular Volume 93.7 fL (80.0-98.0); Monocytes Absolute Auto 0.6 X10*3/uL (0.1-1.2); Monocytes Percent Auto 9.8 % (2-11); Neutrophils Absolute Auto 2.8 x10*3/uL (2.0-8.3); Neutrophils Percent Auto 49.5 % (45-73); Platelet Count 270 X10*3/uL (160-400); Red Blood Count 3.94 X10*6/uL (4.20-5.50); White Blood Count 5.6 X10*3/uL (4.8-10.8)
[2024-10-01 11:44] LABS: Alanine Aminotransferase 17 U/L (0-31); Albumin Level 4.1 g/dL (3.5-5.0); Alkaline Phosphatase 37 U/L (39-117); Anion Gap 10 (12-20); Aspartate Amino Transferase 25 U/L (5-31); Bilirubin Total 0.7 mg/dL (0.0-1.0); Blood Urea Nitrogen 21 mg/dL (9-16); Calcium 9.2 mg/dL (8.4-10.2); Carbon Dioxide 27 mmol/L (22-29); Chloride 107 mmol/L (96-108); Cholesterol 201 mg/dL (<200); Estimated Glomerular Filt Rate > 60; Glucose Fasting 98 mg/dL (60-99); HDL Cholesterol 48 mg/dL (>40); LDL Cholesterol Calculated 135 mg/dL (<100); Potassium 4.7 mmol/L (3.3-5.1); Sodium 139 mmol/L (135-145); Total Protein 7.4 g/dL (6.5-8.0); Triglycerides 90 mg/dL (<150)
[2024-10-01 12:04] LABS: Vitamin D 25-OH Total 49.9 ng/mL (>30)
[2024-10-01 12:23] LABS: Appearance Urine Clear; Color Urine Yellow; Glucose Urine UA Negative (Negative); Leukocyte Esterase Urine Negative (Negative); Nitrite Urine Negative (Negative); PH 5.5 (5.0-9.0); Specific Gravity - Urine 1.025 (1.005-1.025); Urine Blood Negative (Negative); Urine Ketones Negative (Negative); Urine Protein Trace mg/dL (Neg-Trace)
== END 2024-10-01 09:55 | disposition home or self-care (01) ==
LOC: HO.LAB 09:54
PROVIDERS: PCP Internal Medicine; Visit Provider Internal Medicine
DX: R30.0 Dysuria (principal); D64.9 Anemia, unspecified; E78.00 Pure hypercholesterolemia, unspecified; E55.9 Vitamin D deficiency, unspecified
CPT/HCPCS: 36415; 80053; 80061; 81003; 82306; 85025

== ENCOUNTER 2024-12-10 11:37 | Outpatient (REF) | payer MEDICARE, SELFPAY | END 2024-12-10 11:38 | disposition home or self-care (01) | LOC: HO.MAMMO 11:37 | PROVIDERS: PCP Internal Medicine; Visit Provider Internal Medicine | DX: Z12.31 Encounter for screening mammogram for malignant neoplasm of breast (principal) | CPT/HCPCS: 77063; 77067 ==

== ENCOUNTER → 2024-12-10 12:00 | Outpatient (BNV) | payer MEDICARE, SELFPAY | PROVIDERS: PCP Internal Medicine; Visit Provider Internal Medicine | DX: Z12.31 Encounter for screening mammogram for malignant neoplasm of breast (principal) | CPT/HCPCS: 77063; 77067 ==

== ENCOUNTER 2024-12-11 13:00 | Outpatient (AMB) | payer MEDICARE, SELFPAY ==
[2024-12-11 13:08] VITALS: BMI 24.4
--- NOTE | 2024-12-11 13:08 | A.OFFVIS_ITS ---
Vital Signs 12/11/24 13:08 Height 5 ft 4 in Weight 142 lb BMI 24.4 Intake Visit Reasons: yearly breast examination Intake Note: This patient presents for yearly breast examination. Pt c/o; no concerns. MM Screenin12/06/23 Electronic Publisher Required: No Accompanied by: Self / Same As Patient Allergies iodine [IODINE] Allergy (Unknown, Verified 12/11/24 13:14) RASH, rash, itching, redness latex Allergy (Unknown, Verified 12/11/24 13:14) rash Medication List - Last Reconciled 12/11/24 by Justin Mancilla MD aspirin 81 mg PO DAILY atorvastatin 10 mg PO BEDTIME 90 days cholecalciferol (vitamin D3) 50 mcg PO DAILY lidocaine 5% 1 patch topical DAILY multivitamin (Daily Multi-Vitamin tablet) 1 tab PO DAILY naproxen 250 mg PO BID PRN tizanidine 4 mg PO BEDTIME PRN 30 days HPI HPI yearly breast examination: Details: She is here for follow-up for her history of breast cancer. She had undergone lumpectomy and sentinel node biopsy for invasive ductal cancer in [address] Arguello. She did not undergo radiation. She did not undergo chemotherapy. She currently feels well. She denies any significant complaints. She denies any changes with regards to her breast. She had a mammogram done yesterday but the results are not back yet. 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 History of left breast cancer Surgical History S/P lumpectomy, left breast History of hip surgery H/O colonoscopy History of breast biopsy Family History Father Hx of stroke associated with congenital heart disease Mother Hyperthyroidism Social History Housing: House Alcohol intake: never Patient Tobacco Use Status: Never used Tobacco e-Cigarette/Vaping Use: Never Used Second Hand Smoke Exposure: No service: No Current occupational status: retired Sexual orientation: Straight/Heterosexual Gender identity: Female Cognitive needs: No Hearing needs: No Vision needs: Yes (Glasses) Review of Systems Const Denies chills and Denies fever(s) Card Denies chest pain, Denies dyspnea and Denies dyspnea on exertion Resp Denies cough, Denies dyspnea and Denies dyspnea on exertion GI Denies hematochezia and Denies change in bowel habits Denies hematuria Musc Denies back pain and Denies limited range of motion Neuro Denies focal weakness and Denies convulsions Psych Denies depression and Denies mood swings Physical Exam Vital Signs: BMI result Body Mass Index 24.4 Const General: comfortable and no acute distress Chest Other: No palpable breast masses, no nipple or skin changes, no axillary lymphadenopathy Resp Auscultation: clear to auscultation bilaterally Cardio Rate: regular rate GI Palpation (GI): Soft to palpation, not firm and nontender Assessment & Plan Assessment & Plan (1) History of left breast cancer: Comment: Early invasive breast cancer, ER and NM positive, HER2 negative; S/P Tx with lumpectomy and radiation followed by Tx with Anastrozole x 5 years (completed in 2021) Code(s): Z85.3 - Personal history of malignant neoplasm of breast Category: Medical Plan: Current exam does not reveal any palpable breast mass or any nipple or skin changes. She has no axillary lymphadenopathy. She had a mammogram yesterday. The results are not back yet. I will follow up on this and we will call her about the report. Otherwise, we will see her again next year and she should continue with yearly regular screening mammograms Coding Level of Care Code Est Pt Level 3 (21493) Diagnoses History of left breast cancer Z85.3
== END 2024-12-11 13:35 | disposition home or self-care (01) ==
PROVIDERS: PCP Internal Medicine; Visit Provider Surgery
DX: Z85.3 Personal history of malignant neoplasm of breast (principal)
CPT/HCPCS: 99213

== ENCOUNTER → 2024-12-11 13:00 | Outpatient (BNVA) | payer MEDICARE, SELFPAY | PROVIDERS: PCP Internal Medicine; Visit Provider Surgery | DX: Z85.3 Personal history of malignant neoplasm of breast (principal) | CPT/HCPCS: 99212 ==

== ENCOUNTER 2025-03-03 09:20 | Outpatient (REF) | payer MEDICARE, SELFPAY ==
--- OUTSIDE RECORDS SUMMARY | 2025-03-03 10:25 | XMS_ITS ---
Author Organization [facility] Address [address] [place] [address] Care Team Providers Care Ritual Circumciser Name Role Phone Pilo Kemp MD Primary Care Provider Yosef Hammer Unavailable [phone] REASON FOR VISIT Painful nail(s) aggrevated by shoes and causing difficulty standing/walking. Encounters Encounter Location Date Provider Diagnosis [facility] [address] [place] [address] 07/08/2024 Yosef Zhong Tinea unguium B35.1 ; Pain in right toe(s) M79.674 and Pain in left toe(s) M79.675 Assessments Encounter Date Diagnosis (ICD Code) Assessment Notes Treatment Notes Treatment Clinical Notes Section Notes 07/08/2024 Tinea unguium (ICD-10 - B35.1) 07/08/2024 Pain in right toe(s) (ICD-10 - M79.674) 07/08/2024 Pain in left toe(s) (ICD-10 - M79.675) Plan Of Treatment No Information Procedure Notes * Category Sub-Category Detail Notes Debride Nail 6-10 Nail debridement Nail debridem ent performed extensively to reduce/remove overall nail length and girth, subungual debris, and necrotic tissue, by manual and electrical means with use of a nail nipper and/or dremel, to more viable healthy nail plate or bed tissue 6-10. Silver nitrate used for any petechial bleeding as necessary. Patient chooses, no pharmaceutical tx (40038) Progress Notes * Eugenia FAIRCHILDDOB: 0 (85 yo F)Acc No.[id number]:07/08/2024 Progress Note Patient:?Eugenia FAIRCHILD Provider:?Yosef Zhong DPM :1940???Age:84 Y???Sex:Female D ate:07/08/2024 Address:[address] [place], [place] [id number] Pcp:Pilo Kemp MD Subjective: * Chief Complaints: * ???1. Painful nail(s) aggrev ated by shoes and causing difficulty standing/walking.. * HPI: ???Painful Nails:?Pt States Last PCP Visit:?Date:?07/30/2023 ???Toe pain:?Nature:?aching, tenderness, stiffness, swelling.?Location:?2nd toe, B/L feet.?Duration:?several years.?Onset/Cause:?unknown.?Course:?worse.?Aggravated by:?shoes, any pressure.?Treatments:?change in shoes.?Severity/Quality:?moderate.? * Medical History:? Objective: * Vitals:? * Examination: ???Nails: ?NAILS are:?elongated,overgrown,dystrophic,greater than 3mm thick,discolored and friable with crumbly malodorous subungual debris, with pain on palpation.? Assessment: * Assessment: 1.?Tinea unguium - B35.1 (Pr imary)???2.?Pain in right toe(s) - M79.674???3.?Pain in left toe(s) - M79.675??? Plan: * Treatment: * Procedures:?Debride Nail 6-10:?Nail debridement?Nail debridement performed extensively to reduce/remove overall nail length and girth, subungual debris, and necrotic tissue, by manual and electrical means with use of a nail nipper and/or dremel, to more viable healthy nail plate or bed tissue 6-10. Silver nitrate used for any petechial bleeding as necessary. Patient chooses, no pharmaceutical tx (34868).? * Procedure Codes:?99489 DEBRI DE NAIL, 6 OR MORE, Modifiers: XS * Images: * The named appointment provid er may or may not be the originator of this progress note, and it is not deemed complete until electronically signed by the appointment provider. Sign off status: Pending * Provider:?Yosef Zhong DPM Date:? 024 Generated for Zo wilcox/Vianca/Bailey on:?03/03/2025 10:24 AM EDT History and Physical Notes * HPI (History of Present Illness) Category Sub-Category Detail Notes Category Not es Toe pain Nature: aching, tenderness, stiffnes s, swelling Location: 2nd toe, B/L feet Duration: several years Onset/Cause: unknown Course: worse Aggravated by: shoes, any pressure Treatments: change in shoes Severity/Quality: moderate Painful Nails Pt States Last PCP Visit: Date:: 07/30/2023 Examination Category Sub-Category Detail Notes Category Not es Nails NAILS are: elongated,overgr own,dystrophic,greater than 3mm thick,discolored and friable with crumbly malodorous subungual debris, with pain on palpation
--- OUTSIDE RECORDS SUMMARY | 2025-03-03 10:25 | XMS_ITS | Patient Health Record ---
Author Organization [facility] Address [address] [place] [address] Care Team Providers Care Chemical Blender Name Role Phone Justo PRYOR, [place] Primary Care Provider Yosef Hammer Unavailable [phone] Allergies Allergen (clinical drug ingredient) Drug/Non Drug Allergy documented on EMR Reaction Allergy Type Onset Date Status Iodine rash Drug Allergy Active Latex Latex Unknown Allergy Active Reason For Referral No Information Medications Medication SIG (Take, Route, Fr equency, Duration) Notes Start Date End Date Status Aspirin Low Dose 81 MG 1 tablet Orally O nce a day for 30 day(s) Active Social History Tobacco use other than smoking: Question Answer Notes Are you an other tobacco user? No Problems Problem Type SNOMED Code ICD Code Onset Dates Problem Status W/U Status Risk Notes Problem Sprain of calcaneofibular ligament (23208810) Ankle Sprain/Late ral Ankle Sprain (845.02) Active confirmed Problem Edema (40072027) Edema (782.3) Active confirmed Problem Pain in limb (02406008) Pain in Limb (729.5) Active confirmed Problem Sprain of foot (91747383) Sprain, Foot (845.10) Active confirmed Problem Acquired hammer toe of right foot (3325846434803835) Other hammer toe(s) (acquired), right foot (M20.41) Active confirmed Problem Acquired hammer toe of left foot (6803246993205245) Other hammer toe(s) (acquired), left foot (M20.42) Active confirmed Encounters Encounter Location Date Provider Diagnosis [facility] [address] [place] [address] 07/08/2024 Yosef Zhong Plan Of Treatment Pending Test Test Name Order Date X ray : Foot, left 2V 02/06/2012 X ray : Foot, right 2V 02/06/2012 X ray : Foot, right 3V 06/12/2013 [id number] Destruction, 1-14 02/06/2012 Insurance Providers Payer Name Payer Address Payer Phone Subscriber Number Group Number Insured Name Patient Relationship to Insured Coverage Start Date Coverage End Date [facility] [employer] Claims [address] [place] [address] [id number] Eugenia Salguero Self - patient is the insured Medical (General) History Medical History History ICD Code thyroid disorder hepatitis Arthritis Back,Hip,and Knee pain Surgical History Surgery Date(Month/Year) Wrist surgery-left 01/25/13 Hospitalization History Reason Date(Month/Year) wrist surgery 01/25/13
[2025-03-03 10:49] LABS: Alanine Aminotransferase 16 U/L (0-31); Albumin Level 4.2 g/dL (3.5-5.0); Alkaline Phosphatase 41 U/L (39-117); Anion Gap 11 (12-20); Aspartate Amino Transferase 26 U/L (5-31); Bilirubin Total 0.9 mg/dL (0.0-1.0); Blood Urea Nitrogen 19 mg/dL (9-16); Calcium 9.4 mg/dL (8.4-10.2); Carbon Dioxide 26 mmol/L (22-29); Chloride 107 mmol/L (96-108); Cholesterol 221 mg/dL (<200); Estimated Glomerular Filt Rate > 60; Glucose Fasting 100 mg/dL (60-99); HDL Cholesterol 47 mg/dL (>40); LDL Cholesterol Calculated 158 mg/dL (<100); Potassium 4.3 mmol/L (3.3-5.1); Sodium 140 mmol/L (135-145); Total Protein 7.7 g/dL (6.5-8.0); Triglycerides 83 mg/dL (<150)
== END 2025-03-03 09:21 | disposition home or self-care (01) ==
LOC: HO.LAB 09:20
PROVIDERS: PCP Internal Medicine; Visit Provider Internal Medicine
DX: E78.00 Pure hypercholesterolemia, unspecified (principal); E04.2 Nontoxic multinodular goiter; Z85.3 Personal history of malignant neoplasm of breast; M51.360 Other intervertebral disc degeneration, lumbar region with discogenic back pain only; M53.3 Sacrococcygeal disorders, not elsewhere classified; E55.9 Vitamin D deficiency, unspecified; M85.852 Other specified disorders of bone density and structure, left thigh; Z86.718 Personal history of other venous thrombosis and embolism; Z79.82 Long term (current) use of aspirin; Z79.899 Other long term (current) drug therapy
CPT/HCPCS: 36415; 80053; 80061; 96127; 99212

== ENCOUNTER 2025-03-03 12:57 | Outpatient (AMB) | payer MEDICARE, SELFPAY ==
[2025-03-03 13:08] VITALS: BP 104/68; PULSE 78; O2SAT 95; BMI 24.3
--- NOTE | 2025-03-03 13:08 | MHC.PC.OV ---
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 Required: No Accompanied by: Self / Same As Patient Allergies iodine [IODINE] Allergy (Unknown, Verified 03/10/25 02:38) RASH, rash, itching, redness latex Allergy (Unknown, Verified 03/10/25 02:38) rash Medication List - Last Reconciled 03/10/25 by Pilo Kemp MD aspirin 81 mg PO DAILY atorvastatin 10 mg PO BEDTIME 90 days cholecalciferol (vitamin D3) 50 mcg PO DAILY lidocaine 5% 1 patch topical DAILY multivitamin (Daily Multi-Vitamin tablet) 1 tab PO DAILY naproxen 250 mg PO BID PRN tizanidine 4 mg PO BEDTIME PRN 30 days Tobacco use date assessed: 03/03/25 Fall risk assessment: No Falls in past year Last assessed Fall Risk: 03/03/25 Dental Screening Dental Screen Date: 03/03/25 Did you have a dental visit in the last 12 months?: Yes Did you have a dental problem in the last 6 months where you did not have access to dental care?: No Was dental information given to patient?: Patient has dentist HPI Follow Up HPI Details Patient comes in today for her follow up visit States that she feels okay She denies any headaches or dizziness Denies any chest pains, no increased SOB No nausea/vomiting, no abdominal pain No change in bowel habits noted States that her recurrent low back pain have been mostly manageable Needs her Atorvastatin Rx refilled today She had her follow up labs done earlier this morning - to discuss her results [facility] Medical History Osteopenia Vitamin D deficiency History of deep venous thrombosis (DVT) of distal vein of right lower extremity (~07/2016) Lumbar degenerative disc disease Osteopenia of left femoral neck Postmenopause 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 Tubular adenoma of colon Complex regional pain syndrome of left upper extremity Fracture of right hip History of DVT (deep vein thrombosis) Fracture of left wrist 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 History of left breast cancer Surgical History S/P lumpectomy, left breast History of hip surgery H/O colonoscopy History of breast biopsy Family History Father Hx of stroke associated with congenital heart disease Mother Hyperthyroidism Social History Housing: House Alcohol intake: never Patient Tobacco Use Status: Never used Tobacco e-Cigarette/Vaping Use: Never Used Second Hand Smoke Exposure: No service: No Current occupational status: retired Sexual orientation: Straight/Heterosexual Gender identity: Female Cognitive needs: No Hearing needs: No Vision needs: Yes (Glasses) Questionnaire PHQ-9 Over the last 2 weeks, how often have you been bothered by any of the following problems? 1. Little interest or pleasure in doing things: not at all 2. Feeling down, depressed, or hopeless: not at all 3. Trouble falling or staying asleep, or sleeping too much: not at all 4. Feeling tired or having little energy: not at all 5. Poor appetite or overeating: not at all 6. Feeling bad about yourself - or that you are a failure or have let yourself or your family down: not at all 7. Trouble concentrating on things, such as reading the newspaper or watching television: not at all 8. Moving or speaking so slowly that other people could have noticed. Or the opposite - being so fidgety or restless that you have been moving around a lot more than usual: not at all 9. Thoughts that you would be better off or of hurting yourself in some way: not at all Total score: 0 Depression Screening Interpretation: Negative Depression Screening Done: Yes 38499 - PHQ-9 Billing: Yes Source: Developed by Drs. Artur Adhikari, Bonnie Flor, Yash Palacios and colleagues, with an educational ivelisse from [employer]. Thrive Questionnaire Date Thrive assessed: 03/03/25 I am a: Patient What is your living situation today?: I have a steady place to live Within the past 12 months, did the food you bought not last and you didn't have the money to get more?: Never true Within the past 12 months, did you worry whether your food would run out before you got money to buy more?: Never true Do you have trouble paying for medicines?: No Do you have trouble getting transportation to medical appointments?: No Do you have trouble paying your heating and electricity bill?: No Do you have trouble taking care of your child, family member or friend?: No Do you have trouble with day-to-day activities such as bathing, preparing meals, shopping, managing finances, etc.?: No Are you currently unemployed and looking for a job?: No Are you interested in more education?: No Please select the resources that you would like help with: None Currently or been in a relationship where the following occur: No concerns reported THRIVE Score: 0 AUDIT C Alcohol Use Questionnaire (AUDIT-C) 1. How often do you have a drink containing alcohol?: Never 3. How often do you have six or more drinks on one occasion?: Never Total Score: 0 Score Reviewed/Action Taken: Yes NATALIA-7 AMB Questionnaire NATALIA-7 Date NATALIA - 7 assessed: 03/03/25 Feeling nervous, anxious, or on edge: 0 = Not at all Not being able to stop or control worryin = Not at all Worrying too much about different things: 0 = Not at all Trouble relaxin = Not at all Being so restless that it is hard to sit still: 0 = Not at all Becoming easily annoyed or irritable: 0 = Not at all Feeling afraid as if something awful might happen: 0 = Not at all Total NATALIA-7 score (0-4 normal; 5-9 mild; 10-14 moderate; 15-21 severe): 0 Source: Developed by Drs. Artur Adhikari, Bonnie Flor, Yash Palacios and colleagues, with an educational ivelisse from [employer]. Review of Systems Const Denies chills, Denies fatigue, Denies fever(s) and Denies headache(s) ENT Denies dysphagia, Denies dizziness, Denies otalgia, Denies headache(s), Denies neck pain, Denies odynophagia and Denies sore throat Card Denies chest pain, Denies palpitations and Denies dyspnea Resp Denies chest congestion, Denies cough and Denies dyspnea GI Denies abdominal pain, Denies constipation, Denies dysphagia, Denies heartburn, Denies diarrhea, Denies nausea, Denies odynophagia and Denies vomiting Denies difficulty voiding, Denies nocturia, Denies dysuria and Denies urinary urgency Musc Reports back pain (over the lower back / SI joints) and Denies neck pain Skin/Breast Denies rash Neuro Denies dizziness and Denies headache(s) Endo Denies fatigue and Denies palpitations Physical exam (Primary Care) Vital Signs: Last Vital Signs Pulse 78 03/03/25 13:08 BP 104/68 03/03/25 13:08 Pulse Ox 95 03/03/25 13:08 Oxygen Delivery Method Room Air 03/03/25 13:08 BMI result Body Mass Index 24.3 Tobacco/Smoking Status: Tobacco use Status Tobacco use date assessed 03/03/25 03/03/25 13:11 Patient Tobacco Use Status Never used Tobacco 03/03/25 13:11 e-Cigarette/Vaping Use Never Used 03/03/25 13:11 PHQ-9: PHQ-9 Score PHQ-9: Total score 0 03/03/25 13:49 Depression Screening Interpretation: Negative Thrive Assessment: Date of Thrive Assessment Date Thrive assessed 03/03/25 03/03/25 13:11 Currently or been in a relationship where the following occur: No concerns reported Const General: no acute distress and alert HENMT Ears: TM's normal bilaterally and EAC's normal Throat: Yes posterior oropharynx normal and Yes tonsils normal (no TP congestion) Neck Neck: Yes no lymphadenopathy and Yes supple Thyroid: Thyroid normal Resp Auscultation: clear to auscultation bilaterally, no rales and no wheezes Cardio Rate: regular rate Rhythm: regular rhythm Heart sounds: no murmurs GI Palpation (GI): Soft to palpation and nontender Auscultation: normal bowel sounds General: Yes no CVA tenderness Back/Spine/Pelvis Back: no CVA tenderness Thoracic/Lumbar Spine: No lumbar spinal tenderness Sacroiliac joints: on the left (mild) tender to palpation Skin Rashes: no rashes Extrem General: Yes no clubbing, cyanosis or edema Results Reviewed Results Reviewed: Laboratory Tests 03/03/25 09:36 Sodium 140 Potassium 4.3 Creatinine 0.81 Estimated GFR > 60 Fasting Glucose 100 H Calcium 9.4 AST 26 ALT 16 Triglycerides 83 Cholesterol 221 H LDL Cholesterol, Calc 158 H HDL Cholesterol 47 Coding Level of Care Code Est Pt Level 4 (09094) Complex EM visit Add On G2211 Diagnoses Pure hypercholesterolemia E78.00 Multinodular non-toxic goiter E04.2 History of left breast cancer Z85.3 Degeneration of intervertebral disc of lumbar region with discogenic back pain M51.360 Disc-related pain type: discogenic back pain only Pain of left sacroiliac joint M53.3 History of deep venous thrombosis (DVT) of distal vein of right lower extremity Z86.718 Vitamin D deficiency E55.9 Osteopenia of neck of left femur M85.852 Osteopenia location: femoral neck Laterality: left Additional Codes PHQ-9 - 40654 - PHQ-9 Billing: Yes ([id number]) Assessment & Plan Assessment & Plan (1) Pure hypercholesterolemia: Code(s): E78.00 - Pure hypercholesterolemia, unspecified Category: Medical Plan: Results of her labs done earlier this morning reviewed and discussed with patient - have advised her that her cholesterol levels were still elevated with her total cholesterol at 221 mg/dL and LDL cholesterol at 158 mg/dL and both are slightly higher than previous Continue Atorvastatin 10 mg QD for now but advised patient that we may need to consider increasing this to 20 mg daily at her next visit if her numbers do not improve significantly over the next few months Will have her recheck her labs and fasting lipids in 4 months for follow up (2) Multinodular non-toxic goiter: Comment: Currently euthyroid followed by Dr. High Code(s): E04.2 - Nontoxic multinodular goiter Category: Medical Plan: Her TSH level was normal on her labs done recently Patient currently remains euthyroid with no acute symptoms Follow up with endocrinology (Dr. 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, HER2 negative; S/P Tx with lumpectomy and radiation followed by Tx with Anastrozole x 5 years (completed in 2021) Code(s): Z85.3 - Personal history of malignant neoplasm of breast Category: Medical Plan: S/P Tx with lumpectomy, radiation and with aromatase inhibitors x 5 years - completed in 2021 Mammogram done most recently in November 2024 came out normal Follow up with oncology/surgery as scheduled for continuing surveillance (4) Lumbar degenerative disc disease: Code(s): M51.36 - Other intervertebral disc degeneration, lumbar region Category: Medical Qualifiers: Disc-related pain type: discogenic back pain only Qualified Code(s): M51.360 - Other intervertebral disc degeneration, lumbar region with discogenic back pain only Plan: Reinforced activity and weight-lifting restrictions Lumbar spine x-rays done in January 2023 revealed (+) mild lumbar dextroscoliosis, with multilevel degenerative disc disease that appears most pronounced at L5-S1. Also (+) L3-L4 and L4-L5 mild grade 1 anterolisthesis Continue Tizanidine 4 mg Q HS PRN She is now also follow-up with pain management regularly for her chronic low back pain - she was sent for physical therapy when she was seen back in September 2024 but it does not look like patient pursued physical therapy at all (5) Pain of left sacroiliac joint: Code(s): M53.3 - Sacrococcygeal disorders, not elsewhere classified Category: Medical Plan: Her pelvic and SI joint x-rays done in July 2023 revealed (+) right hip ORIF without evidence of hardware complication; no acute fracture or dislocation seen. (+) mild bilateral hip osteoarthritis and minimal degenerative arthritis within the bilateral sacroiliac joints. (+) degenerative disc disease and facet arthropathy within the partially visualized lower lumbar spine. Continue Lidocaine 5% patches to apply to the painful area over her left SI joint QD PRN for symptomatic relief She was referred to pain management previously and they in turn referred her to physical therapy, which patient apparently did not pursue (6) History of deep venous thrombosis (DVT) of distal vein of right lower extremity: Onset Date: ~07/2016 Comment: occurred in July 2016 following right hip surgery at the [facility] Code(s): Z86.718 - Personal history of other venous thrombosis and embolism Category: Medical Plan: She had a provoked DVT following right hip surgery in 2016; has had no recurrence since Continue Aspirin 81 mg QD (7) Vitamin D deficiency: Code(s): E55.9 - Vitamin D deficiency, unspecified Category: Medical Plan: Continue Vitamin D3 2000 units QD (8) Osteopenia: Code(s): M85.80 - Other specified disorders of bone density and structure, unspecified site Category: Medical Qualifiers: Osteopenia location: femoral neck Laterality: left Qualified Code(s): M85.852 - Other specified disorders of bone density and structure, left thigh Plan: Reinforced fall precautions Repeat BMD last done in October 2021 revealed (+) osteopenia based on the lowest T-score value of -2.2 in the femoral neck She is reminded to continue with her daily oral Calcium and Vitamin D intake and to exercise regularly and stay active to help slow down the decline in her BMD but to be careful and avoid falls and potential injuries Will have her repeat her BMD next spring (2024) at her next follow up appt Plan Follow up in 4 months Orders: Orders Complete Blood Count Auto Diff 4 Months D64.9 - Anemia, unspecified Comprehensive [place]. Panel Fast 4 Months E78.00 - Pure hypercholesterolemia, unspecified Lipid Panel 4 Months E78.00 - Pure hypercholesterolemia, unspecified Medications: Refilled atorvastatin 10 mg PO BEDTIME 90 days 90 tabs 3RF
--- OUTSIDE RECORDS SUMMARY | 2025-03-03 15:22 | XMS_ITS ---
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 Generated for Violetai brenden/Vianca/eTransmitting on:?03/03/2025 03:22 PM EDT
--- OUTSIDE RECORDS SUMMARY | 2025-03-03 15:23 | XMS_ITS ---
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 Role Phone Justo PRYOR [place] Primary Care Provider Yosef Hammer Unavailable [phone] Allergies Allergen (clinical drug ingredient) Drug/Non Drug Allergy documented on EMR Reaction Allergy Type Onset Date Status Iodine rash Drug Allergy Active Latex Latex Unknown Allergy Active REASON FOR VISIT Last PCP Visit: 07/2023, Painful thick toenails which are aggrevated by shoes and causes difficultystanding/walking, Wart(s), Painful toe(s) Medications Medication SIG (Take, Route, Fr equency, Duration) Notes Start Date End Date Status Aspirin Low Dose 81 MG 1 tablet Orally O nce a day for 30 day(s) Active Social History Tobacco use other than smoking: Question Answer Notes Are you an other tobacco user? No Problems Problem Type SNOMED Code ICD Code Onset Dates Problem Status W/U Status Risk Notes Problem Acquired hammer toe of left foot (4714231582910 103) Other hammer toe(s) (acquired), left foot (M20.42) Active confirmed Problem Acquired hammer toe of right foot (7170308322565 105) Other hammer toe(s) (acquired), right foot (M20.41) Active confirmed Vital Signs Height 5ft 6in in 01/08/2024 Weight 136 lbs 01/08/2024 BMI 21.95 kg/m2 01/08/2024 Encounters Encounter Location Date [facility] [address] [place] [address] 01/08/2024 Yosef Zhong Tinea unguium B35.1 ; Pain in right toe(s) M79.674 ; Pain in left toe(s) M79.675 ; Other viral warts B07.8 ; Pain in left foot M79.672 ; Pain in right foot M79.671 ; Other hammer toe(s) (acquired), left foot M20.42 and Other hammer toe(s) (acquired), right foot M20.41 Assessments Encounter Date Diagnosis (ICD Code) Assessment Notes Treatment Notes Treatment Clinical Notes Section Notes 01/08/2024 Tinea unguium (ICD-10 - B35.1) 01/08/2024 Pain in right toe(s) (ICD-10 - M79.674) 01/08/2024 Pain in left toe(s) (ICD-10 - M79.675) 01/08/2024 Other viral warts (ICD-10 - B07.8) 01/08/2024 Pain in left foot (ICD-10 - M79.672) 01/08/2024 Pain in right foot (ICD-10 - M79.671) 01/08/2024 Other hammer toe(s) (acquired), left foot (ICD-10 - M20.42) 01/08/2024 Other hammer toe(s) (acquired), right foot (ICD-10 - M20.41) Plan Of Treatment Next Appt Details Follow Up: 6 Months, Reason: Procedure Notes * Category Sub-Category Detail Notes Wart Treatment Procedure Verrucae(s) were debrided to pin-point bleeding margins with sterile surgical blade (96393), silver nitrate chemocautery applied Debride Nails 1-5 Procedure: Nail debrideme nt performed extensively to reduce/remove overall nail length and girth, subungual debris, and necrotic tissue, by manual and electrical means by use of a nail nipper and/or dremel, to more viable healthy nail plate or bed tissue 1-5. Silver nitrate used for any petechial bleeding as necessary. Patient chooses, no pharmaceutical tx (13957) Progress Notes * Eugenia GONZALEZDOKenny: 0 (83 yo F)Acc No.[id number]:01/08/2024 Progress Notes Patient:?Eugenia Gonzalez Provider:?Yosef Zhong DPM :1940???Age:83 Y???Sex:Female D ate:01/08/2024 Address:[address] [place], [place] [id number] Pcp:Pilo Kemp MD Subjective: * Chief Complaints: * ??? Last PCP Visit: ainful thick toenails which are aggrevated by shoes and causes difficulty standing/walkingWart(s)Painful toe(s) * HPI: ???Painful Nails:?Pt States Last PCP Visit:?Date:?07/30/2023 ???Toe pain:?Nature:?aching, tenderness, stiffness, swelling.?Location:?2nd toe, B/L feet.?Duration:?several years.?Onset/Cause:?unknown.?Course:?worse.?Aggrevated by:?shoes, any pressure.?Treatments:?change in shoes.?Severity/Quality:?moderate.? * ROS:?General/Constitutional:?Nausea?denies.?Vomiting?denies.?Hunger Thirst?denies.?Loss appetite?denies.?Chills?denies.?Fatigue?denies.?Fever?denies.?Night Sweats?denies.?Unexplained weight loss?denies.?Ophthalmologic:?Blurred vision?denies.?Red eye?denies.?HEENTM:?Dentures?denies.?Dizziness?denies.?Glasses/contacts?admits.?Retinopathy?de nies.?Blurred/double vision?denies.?TMJ?denies.?Discharge/drainage?denies.?Implants?denies.?Hard of hearing denies.?Difficulty chewing/swallowing/speaking?denies.?Nose bleeds?denies.?Sore mouth?denies.?Swollen glands?denies.?Respiratory:?On Oxygen?denies.?Pneumonia/pleurisy?denies.?Bronchitis?denies.?Emphysema?denies.?C oughing?denies.?Cough blood?denies.?Shortness of breath?denies.?Wheezing?denies.?Cardiovascular:?Pacemaker?denies.?MVP?denies.?WPW?denies.?CHF?denies.?Heart attack?denies.?Septal defect?denies.?Rapid beat?denies.?Chest pain ?denies.?Atrial Fib.?denies.?Murmur/Palpitations?denies.?Gastrointestinal:?Hemorrhoids?denies.?Stomach/Abdominal pain?denies.?Dark blood stool?denies.?Irritable bowel ?denies.?Constipation?denies.?Diarrhea?denies.?Vomiting?denies.?Hematology:?Swelling?admits.?Bruising?denies.?Bleeding problem?denies.?Genitourinary:?Blood urine?denies.?Frequent/Painfu/urination/bladder control?denies.?Kidney stones?denies.?Infection (UTI)?denies.?Nephropathy?denies.?Musculoskeletal:?Hammertoes?admits.?Bunions?admits.?Scoliosis/kyphosis?denies.?Muscle cramps / walking?denies.?Generalized aches and pains?denies.?Weakness?denies.?Integ.:?Benjamin?denies.?Scars?denies.?Corns/calluses?denies.?Ingrown nails?denies.?Painful nails?denies.?Rashes?denies.?Neurologic:?Difficulty sleeping?denies.?Bipolar?denies.?Brain disorder?denies.?Balance trouble?denies.?Confusion?denies.?Fainting/blackouts?denies.?Headache?denies.?Tr emors?denies.? * Medical History:? * Surgical History:?Wrist surg brown-left 01/25/13 * Hospitalization/Major Diagno stic Procedure:?wrist surgery 01/25/13 * Family History:?Mother: dece ased.?Father: , diagnosed with Unspecified cerebral artery occlusion with cerebral infarction.? * Social History:?Tobacco Use:?Tobacco Use/Smoking?Are you a: nonsmoker.?Tobacco use other than smoking?Are you an other tobacco user??No ???Drugs/Alcohol:?Drugs?Have you used drugs other than those for medical reasons in the past 12 months??No ?Alcohol Screen?Did you have a drink containing alcohol in the past year?: Yes, Points: 0, Interpretation: Negative.?Miscellaneous:?Caffeine: yes, 2-3 cups per day. ?Children: yes. ?Marital status: . * Medications:?TakingAspirin L ow Dose 81 MG Tablet 1 tablet Orally Once a dayMedication List reviewed and reconciled with the patientTaking Aspirin Low Dose 81 MG Tablet 1 tablet Orally Once a dayMedication List reviewed and reconciled with the patient * Allergies:?Iodine: rashLatex yes[Allergies Verified] Objective: * Vitals:?Ht: 5ft 6in, Wt: 136 , BMI: 21.95, Ht-cm: 167.64 cm, Wt-k.69 kg. * Examination: ???Nails: ?NAILS are:?Elongated, overgrown, dystrophic, greater than 3mm thick, discolored and friable with crumbly malodorous subungual debris, with pain on palpation, T1, T6, T4, T9.?Dermatologic: ?SKIN FINDINGS:?Skin exam reveals normal texture, elasticity, and tugor. There are no masses. The interspaces are clear.?VERRUCA:? Reveals a Single , multi-loculated , mosaic-patterned, round, raised, flat-topped, petechial bleeding papule(s), with cauliflower appearance and interruption of skin lines, pain to lateral compression, and size estimated at __2-3__ mm diameter, plantar Heel, RIGHT with 1cm cyst adjacent to lesion.?General Examination: ?GENERAL APPEARANCE:?pleasant, alert, well nourished, well developed, well hydrated, with good attention to hygene/body habitus, and in no acute distress.?ORIENTED:?person,place, and time.?Neurological: ?SENSORY:?Neurological exam reveals intact sensorium, pain sensation normal, vibration sensation intact, pinprick sensation is normal in the lower extremities, Pt denies, anesthesia, burning, paresthesia, tingling, B/L.?BABINSKI REFLEX:?absent.?Vascular: ?DP PULSES:?2/4, B/L.?PT PULSES:? 1/4, B/L.?CAPILLARY FILL TIME:?3 secs. per digit, B/L.?SKIN TEMPERTURE GRADIENT OF THE LOWER EXTERMITIES:?warm to cool, proximal to distal, B/L.?HAIR GROWTH/TEXTURE/ELASTICITY/TURGOR:?normal, B/L.?PIGMENTATION:?normal, B/L.?EDEMA:? 1/4, B/L, Foot, Ankle(s), Leg(s).?TELANGECTASIA:?absent.?VARICOSITIES:?absent.?Orthopedic: ?MUSCLE STRENGTH:?5/5 all groups in a symmetrical fashion , B/L.?GAIT ABNORMALITY:?pronated, abducted, B/L.?DIGITAL DEFORMITIES:? Digital contracture, PIPJ, 2-5 B/L, incompl- reducible with WB, or to push-up test, no over, nor underlapping.? Assessment: * Assessment: 1.?Tinea unguium - B35.1 (Pr imary)?2.?Pain in right toe(s) - M79.674?3.?Pain in left toe(s) - M79.675?4.?Other viral warts - B07.8?5.?Pain in left foot - M79.672?6.?Pain in right foot - M79.671?7.?Other hammer toe(s) (acquired), left foot - M20.42?8.?Other hammer toe(s) (acquired), right foot - M20.41? Plan: * Treatment: * Procedures:?Debride Nails 1-5:?Procedure:?Nail debridement performed extensively to reduce/remove overall nail length and girth, subungual debris, and necrotic tissue, by manual and electrical means by use of a nail nipper and/or dremel, to more viable healthy nail plate or bed tissue 1-5. Silver nitrate used for any petechial bleeding as necessary. Patient chooses, no pharmaceutical tx (66995).?Wart Treatment:?Procedure?Verrucae(s) were debrided to pin-point bleeding margins with sterile surgical blade (44152), silver nitrate chemocautery applied.? * Procedure Codes:?83344 DEBRI DE NAIL, 1-5, Modifiers: XS 57384 Wart Destruction, 1-14, Modifiers: XS * Preventive Medicine:? ??Counseling:?Discussion:?-03: Office or other outpatient visit for the evaluation and management of a new patient, which required a medically appropriate history and/or examination and LOW level of DECISION MAKING for: 1 STABLE ACUTE UNCOMPLICATED PROBLEM, 2 OR MORE MINOR PROBLEMS, OR 1 STABLE CHRONIC PROBLEM, THAT POSE(S) A LOW RISK FOR MORBIDITY/MORTALITY. The visit on the day of the encounter encompassed interpreting the data and educating the patient as to the nature of their condition, treatment options available according to their individual PMH, meds, allergies, and overall health/living conditions, as well as any potential risks or complications that may occur from a failure to adhere to, and participate in, the recommended course of therapy. The discussion included a complete verbal, and/or written explanation of the examination results, any x-rays taken, the proposed diagnosis, and outline of the treatment plan. A schedule for future care needs was also explained. The patient verbalized an understanding of the instructions at this time and agreed to be an active participant in their treatment. If the patient should think of any questions or concerns after the visit, I have encouraged the patient to call the office.?Digital Treatment:?HT- I explained to the patient the possible etiologies of Hammertoes, including genetics/foot type/shoegear/activity level/exercise routine and the risks/benefits of all the different treatment options for their pain including: No treatment at all, Rest, Ice, New/supportive/wider/deeper Shoegear, Digital Padding/Strapping/Taping/Bracing/Gel protective sleeves, Foot/Ankle AFO Bracing, Stretching exercises, Deep Tissue Massage, Arch support/shoe inserts with splay metatarsal padding, and Custom orthoses. I insisted that any digital devices be removed daily and not worn overnight for safety. The patient is to carefully examine the toes daily for any skin irritation while using any splinting or padding device. The advantages and disadvantages of each option were discussed and the patients questions re: shoegear, padding, custom vs prefabricated inserts, activity level, and consistency in home treatment regimens for optimal success were answered to their verbally confirmed satisfaction; pt does not want sx due to age.?Fungal Nail Counseling:?The patient was counseled on the diagnosis, potential etiologies (including, but not limited to, environmental factors, genetic, immune deficiency), and the multiple treatment options for Onychomycosis. We discussed the risks and benefits of each option from performing no treatment, to ultraviolet light shoe treatment, to laser nail treatment, to applying topical antifungals, to taking oral antifungal medication, to surgical removal of the involved nail(s) with or without performing a matricectomy, or any combination thereof. We discussed the advantages and disadvantages of each of possible treatment and importance for adherence to all the recommended therapies for optimum success. This includes the necessity for weekly emery board self nail home debridements, and control the nail and skin environment as much as possible by only using a fresh, dry pair of shoes/socks each day, as well as keeping the skin as dry as possible through the use of sprays/powders if necessary. The patient was instructed to discard the emery board after use to prevent reinfection of the involved nail(s). We discussed the mycological and visual clinical effectiveness of topical vs oral antifungal treatments as well as each ones potential side effects and/or any patient- specific medication interactions. We discussed the reasons behind the important requirement of regular liver function testing with oral antifungal therapy for safety. Patient questions regarding use, dosage, successful outcomes, blood tests, and possible pharmaceutical interactions were reviewed and the patient verbalized that all answers were clearly understood, The Pt prefers topical treatment--vicks qd hs.? * Follow Up:?6 Months * Images: * Sign off status: Completed true * Provider:?Yosef Zhong DPM Date:? 024 Generated for Zo wilcox/Vianca/Bailey on:?03/03/2025 03:22 PM EDT History and Physical Notes * HPI [...] Category Sub-Category Detail Notes Category Not es Neurological SENSORY: Neurological exa m reveals intact sensorium, pain sensation normal, vibration sensation intact, pinprick sensation is normal in the lower extremities, Pt denies, anesthesia, burning, paresthesia, tingling, B/L BABINSKI REFLEX: absent Dermatologic SKIN FINDINGS: Skin exam reveal s normal texture, elasticity, and tugor. There are no masses. The interspaces are clear VERRUCA: Reveals a Single , m ulti-loculated , mosaic-patterned, round, raised, flat-topped, petechial bleeding papule(s), with cauliflower appearance and interruption of skin lines, pain to lateral compression, and size estimated at __2-3__ mm diameter, plantar Heel, RIGHT with 1cm cyst adjacent to lesion Orthopedic GAIT ABNORMALITY: pronated, abducted, B/L DIGITAL DEFORMITIES: Digital contracture , PIPJ, 2-5 B/L, incompl-reducible with WB, or to push-up test, no over, nor underlapping MUSCLE STRENGTH: 5/5 all groups in a symmetrical fashion , B/L General Examination GENERAL APPEARANCE: pleasant , alert, well nourished, well developed, well hydrated, with good attention to hygene/body habitus, and in no acute distress ORIENTED: person,place, and ti me Vascular DP PULSES (B): 2/4, B/L PT PULSES (B): 1/4, B/L CAPILLARY FILL TIME: 3 secs. per digit, B/L TEMPERTURE GRADIENT (C): warm to cool, p roximal to distal, B/L TROPHIC CONDITION-TEXTURE/ELASTICITY/TURGOR/HAIR GROWTH (B): normal, B/L EDEMA (C): 1/4, B/L, Foot, Ankl e(s), Leg(s) TELANGECTASIA: absent VARICOSITIES: absent PIGMENTATION: normal, B/L Nails NAILS are: Elongated, overg rown, dystrophic, greater than 3mm thick, discolored and friable with crumbly malodorous subungual debris, with pain on palpation, T1, T6, T4, T9
== END 2025-03-03 13:53 | disposition home or self-care (01) ==
LOC: HO.HMCH 12:58
PROVIDERS: PCP Internal Medicine; Visit Provider Internal Medicine
DX: E78.00 Pure hypercholesterolemia, unspecified (principal); E04.2 Nontoxic multinodular goiter; Z85.3 Personal history of malignant neoplasm of breast; M51.360 Other intervertebral disc degeneration, lumbar region with discogenic back pain only; M53.3 Sacrococcygeal disorders, not elsewhere classified; Z86.718 Personal history of other venous thrombosis and embolism; E55.9 Vitamin D deficiency, unspecified; M85.852 Other specified disorders of bone density and structure, left thigh

== ENCOUNTER 2025-06-10 13:10 | Emergency (ER) | payer MEDICARE, SELFPAY ==
--- NOTE | ~2025-06-10 | CT_ITS ---
EXAMINATION: CT HEAD WITHOUT CONTRAST CLINICAL INFORMATION: Fall, head strike. COMPARISON: 03/07/2011. TECHNIQUE: Contiguous axial imaging was performed from the skull base to vertex without intravenous administration of contrast. This CT examination was performed using dose optimization techniques as appropriate, variously including the following: *Automated exposure control *Adjustment of mA and/or kV according to patient size (this includes techniques or standardized protocols for targeted exams where dose is matched to indication/reason for exam; i.e. extremities or head) *Use of iterative reconstruction technique FINDINGS: There is no evidence of intracranial hemorrhage or extra-axial fluid collection. There is no mass effect, or edema. No CT evidence of acute territorial infarct. Ventricles, sulci, and cisterns are normal in size and configuration for patient age. No hydrocephalus. No midline shift. Negative hyperdense MCA sign. Negative insular ribbon sign. 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 Patchy periventricular and deep white matter hypoattenuation is consistent with mild small vessel ischemic changes. Normal pituitary. Mild atheromatous calcification of the bilateral carotid siphons. Globes and orbital contents image normally. There are bilateral lens replacements. No extracranial soft tissue abnormalities. The paranasal sinuses, mastoid air cells, and tympanic cavities are normally aerated. No suspicious bony abnormalities. There are no acute fractures evident. CT/CT head/brain wo IV con IMPRESSION: No acute intracranial abnormality. No fracture evident. Electronically signed by: Charlie Hong MD 06/10/2025 02:36 PM EDT
--- NOTE | ~2025-06-10 | CT_ITS ---
EXAMINATION: CT CHEST WITHOUT CONTRAST CLINICAL INFORMATION: Trauma, fell: To the right side, pain DLP: 259 mGY*cm COMPARISON: Thyroid ultrasound June 03, 2022 TECHNIQUE: Multidetector volumetric CT imaging of the chest was done. Axial MIP volume rendering provided. Sagittal and coronal reformatted images were obtained. This CT examination was performed using dose optimization techniques as appropriate, variously including the following: *Automated exposure control *Adjustment of mA and/or kV according to patient size (this includes techniques or standardized protocols for targeted exams where dose is matched to indication/reason for exam; i.e. extremities or head) *Use of iterative reconstruction technique FINDINGS: LUNGS: Patchy groundglass densities are present throughout the lungs. There are linear densities in the left greater than right lung base. There is peribronchial thickening in the lower lobes. Pulmonary vessels are mildly enlarged. MEDIASTINUM: There is enlargement of the thyroid gland cyst in the left lobe 9 mm in diameter. Also, thyroid gland appears lower in attenuation than usual. CORONARY ARTERY CALCIFICATION: Present PLEURA: Small layering pleural effusions present on the right. AXILLA: No lymphadenopathy. UPPER ABDOMEN: Ill-defined 1 mm hyperdensity is present in the lateral mid left kidney. Hypoattenuating lesion 1 cm in diameter measuring -1 Hounsfield units in the anterior dome of the liver is consistent with a benign hepatic cyst. OSSEOUS STRUCTURES: Extensive degenerative disc disease is noted throughout the imaged portions of the spine with degenerative disc disease and facet arthropathy. There is a fracture with full shaft width offset involving the anterior second and third right ribs. CT/CT chest wo IV con IMPRESSION: Anterior right second and third rib fractures with small right pleural effusion. Thyroid goiter Ill-defined 1 cm hyperdensity in the mid left kidney. Follow-up renal ultrasound to determinate if it is solid or cystic. Pulmonary vascular congestion. Fleischner guidelines were followed. Electronically signed by: Stew Arthur MD 06/10/2025 04:59 PM EDT
--- NOTE | ~2025-06-10 | XR_ITS ---
EXAMINATION: XR SHOULDER, RIGHT CLINICAL INFORMATION: fall R shoulde bruising ?clav fracture COMPARISON: Correlated to chest x-ray dated September 21, 2015. TECHNIQUE: AP and Y-view projections of the right shoulder. FINDINGS: There is an acute cortical disruption distal clavicle near the acromion with superior displacement of the proximal fragment. The included right humeral head is intact. The scapula appears intact. XR/XR shoulder RT min 2V IMPRESSION: Acute superiorly displaced fracture distal right clavicle. Electronically signed by: Roscoe Rene MD 06/10/2025 01:45 PM EDT
--- NOTE | ~2025-06-10 | CT_ITS ---
EXAMINATION: CT CERVICAL SPINE WITHOUT CONTRAST CLINICAL INFORMATION: Fell in garden COMPARISON: None available. TECHNIQUE: Axial imaging was performed from the base of the skull through T3 without IV contrast. Coronal and sagittal reformatted images were generated from the original axial data set. ALARA: The examination used one or more of the following radiation dose reduction techniques: Automated exposure control, iterative reconstruction, and/or adjustment of mA and/or KV. DLP: 341 mGY*cm FINDINGS: T2 demonstrates lucency in the posterior right vertebral body extending into the right pedicle with coarsened trabeculation typical of a vertebral hemangioma. The atlantodental junction demonstrates sclerosis and moderate osteophyte formation. C2-C3: Uncovertebral and facet osteophytes are small to medium in size. C3-C4: There is severe disc space narrowing with endplate, uncovertebral, and facet osteophytes resulting in foraminal narrowing, greater on the left. There is mild grade 1 retrolisthesis. C4-C5: Moderate severe disc space narrowing with endplate, uncovertebral and facet osteophytes with foraminal narrowing bilaterally C5-C6: Moderate disc space narrowing with endplate osteophytes and uncovertebral facet osteophytes with foraminal narrowing greater on the right. C6-7: Moderate severe disc space narrowing with endplate, uncovertebral, and facet osteophytes with foraminal narrowing, greater on the left. There is subtle anterolisthesis. C7-T1: Mild disc space narrowing. There is a fracture through the medial posterior right second rib. CT/CT cervical spine wo IV con IMPRESSION: Posterior medial right second rib fracture. Multilevel degenerative disc disease and facet arthropathy with multilevel foraminal narrowing. Electronically signed by: Stew Arthur MD 06/10/2025 02:37 PM EDT
[2025-06-10 13:20] VITALS: BP 161/82; PULSE 72; RESP 16; TEMP 36.6; O2SAT 95; BMI 25.8
--- NOTE | 2025-06-10 13:20 | ED_ITS ---
HPI - General Adult General Chief complaint: Extremity Injury, Upper Stated complaint: fall, bruised shoulder Time Seen by Provider: 06/10/25 16:08 Source: patient Mode of arrival: ambulatory Limitations: no limitations History of Present Illness ED Provider: Dr. Jennifer Granger HPI narrative: patient comes to the emergency room complaining of right shoulder pain that started 4 days ago. Patient states she was gardening and fell backwards. According to the patient she has had been upper back pain on the right side and right shoulder pain. Patient denies hitting her head or losing consciousness, patient denies being on blood thinners . Related Data Home Medications ?Medication ?Instructions ?Recorded ?Confirmed aspirin 81 mg tablet,delayed 81 mg PO DAILY 08/27/20 0 03/10/25 release multivitamin (Daily Multi-Vitamin 1 tab PO DAILY 08/2703/10/25 tablet) cholecalciferol (vitamin D3) 50 50 mcg PO DAILY 03/10/25 mcg (2,000 unit) capsule Previous Rx's ?Medication ?Instructions ?Recorded tizanidine 4 mg tablet 4 mg PO BEDTIME PRN low back pain 05/22/23 30 days #30 tabs lidocaine 5 % topical patch 1 patch topical DAILY #15 ea 09/27/24 naproxen 250 mg tablet 250 mg PO BID PRN pain #30 t abs 09/27/24 atorvastatin 10 mg tablet 10 mg PO BEDTIME 90 days #90 tabs 03/03/25 tramadol 50 mg tablet 50 mg PO TID PRN pain #10 ta bs 06/10/25 Allergies Allergy/AdvReac Type Severity Reaction Status Date / Time iodine (IODINE) Allergy Unknown RASH, Verified 06/10/25 13:25 rash, itching, redness latex Allergy Unknown rash Verified 06/10/25 13:25 Review of Systems Review of Systems: Constitutional : No Weight loss, No Fever, No Chills, No Night Sweats, No Fatigue, No Malaise ENT/Mouth : No Hearing loss, No Ear Pain, No Nasal Congestion, No Sinus Pain, No Hoarseness, No sore throat, No Rhinorrhea, No Swallowing Difficulty Eyes: No Eye Pain, No Swelling, No Redness, No Foreign Body, No Discharge, No Vision Changes Cardiovascular : No Chest Pain, No SOB, No Dyspnea on Exertion, No Orthopnea, No Edema, No Palpitations Respiratory : No Cough, No Sputum, No Wheezing, No Smoke Exposure, No Dyspnea Gastrointestinal : No Nausea, No Vomiting, No Diarrhea, No Constipation, No abdominal Pain, No Hematochezia, No Melena Genitourinary : no irregular bleeding, No Dysuria, No Urinary Frequency, No Hematuria, No Urinary Incontinence, No Urgency, No Flank Pain, No Urinary Flow Changes, No Hesitancy Musculoskeletal : complaining of right upper back pain and right shoulder pain, No Myalgias, No Joint Swelling Skin : Complaining of a large bruise over the right shoulder Neuro : No Weakness, No Numbness, No Paresthesias, No Loss of Consciousness, No Dizziness, No Headache Psych : No Anxiety/Panic, No Depression, No SI/HI/AH/VH, No Social Issues, Heme/Lymph: No Bruising, No Bleeding,No Lymphadenopathy Endocrine : No Polyuria, No Polydipsia, No Temperature Intolerance PMF Past Medical History Medical History Osteopenia Vitamin D deficiency History of deep venous thrombosis (DVT) of distal vein of right lower extremity (~07/2016) Lumbar degenerative disc disease Osteopenia of left femoral neck Postmenopause 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 Tubular adenoma of colon Complex regional pain syndrome of left upper extremity Fracture of right hip History of DVT (deep vein thrombosis) Fracture of left wrist 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 History of left breast cancer Surgical History S/P lumpectomy, left breast History of hip surgery H/O colonoscopy History of breast biopsy Family History Family History Father Hx of stroke associated with congenital heart disease Mother Hyperthyroidism Social History Social History Housing: House Alcohol intake: never Patient Tobacco Use Status: Never used Tobacco e-Cigarette/Vaping Use: Never Used Second Hand Smoke Exposure: No Advance Directives: No Advance Directives Information Provided: No Do you have a plan to hurt others: No Plan service: No Current occupational status: retired Sexual orientation: Straight/Heterosexual Gender identity: Female Cognitive needs: No Hearing needs: No Vision needs: Yes (Glasses) Physical Exam ED Vital Signs: Vital Signs - 24 hr 06/10/25 13:20 06/10/25 15:18 Temperature 97.8 F 98.0 F Pulse Rate 72 67 Respiratory Rate 16 20 Blood Pressure 161/82 H 156/71 H Pulse Oximetry 95 94 Oxygen Delivery Method Room Air Room Air BMI result Body Mass Index 25.8 Const Other: Appearance: Alert. Oriented X3. No acute distress. Eyes: Pupils equal, round and reactive to light. ENT: Pharynx normal. Neck: Normal inspection. Neck supple. No lymph nodes noted. No crepitus CVS: Normal heart rate and rhythm. Pulses normal. Normal S1 and S2 Respiratory: No respiratory distress. Breath sounds normal. No Wheezing. No rales Abdomen: Soft and nontender. No rigidity. No distention. Skin: Skin warm and dry. Normal skin color. Normal skin turgor. there is an old extensive ecchymosis from the shoulder towards the upper chest and Right tricipital area Extremities: No lower extremity edema. No Lacerations. No Rash. Extensive ecchymosis over the right shoulder, patient unable to abduct due to pain over the right shoulder and upper back Neuro: Oriented X 3. No motor deficit. No sensory deficit. Moving all extremities. No slurred speech. CN 2 through 12 grossly intact Psych: calm, cooperative, normal affect Course Course Course Narrative: 06/10/25 1320 [place] Nguyen This is a Rapid Medical Examination (RME) performed by Kamilah Longo PA-C in triage. Full HPI, ROS, assessment and treatment plan per primary provider in the Main ED. Hx: 85 yo F here s/p mechanical fall 2 days ago. fell on a soft grassy surface in her garden onto R shoulder. denies HS or LOC. no thinners, baby aspirin daily. presented to yesterday w/ xrays - told she didnt have a fx. called back once at home, told the xr was mis-read and she has a fractured clavicle. reports pain/ swelling/ bruising is worsening. PE/vitals: noted bruising to R shoulder. FROM intact w/ pain on abduction. no midline c spine tenderness. Plan: xrs, CT Medications Administered Discontinued Medications Generic Name Dose Route Start Last Admin Trade Name Venessa PRN Reason Stop Dose Admin Tramadol HCl 50 mg 06/10/25 16:39 06/10/25 17:21 Tramadol Hcl 50 Mg Tablet PO 06/10/25 16:40 50 mg ONCE ONE Administration Medical Decision Making Medical Decision Making [facility] Narrative: Interpretation of labs: Negative urinalysis CT scan of the chest shows 2 rib fractures 2nd and 3rd on the right side, head and cervical spine CT did not show any acute abnormalities. Right shoulder x- ray shows a fractured clavicle. Patient states that she is tolerating the pain well with Tylenol. However, patient states that she may need something a little bit stronger for night. Physical therapy and case management consult were offered. However, patient states that she has 2 sisters that will help her with all her activities of daily living. One of her sisters is at bedside assuring that they will help her in anything that she needs. Differential Diagnosis Differential Diagnoses: The differential diagnosis associated with the presentation includes ( Intracranial bleed, cervical spine injury, clavicle fracture, rib fracture) Admission/Observation Consideration of admission/observation: Escalation of care including admission/observation considered ( given patient's age and injuries, observation was considered) Lab Data [facility] Lab Attestation statement: I reviewed the patient's lab results. Labs: Lab Results 06/10/25 Range/Units 17:10 Urine Color Yellow Urine Appearance Clear Urine pH 6.0 (5.0-9.0) Ur Specific [place] 1.020 (1.005-1.025) Urine Protein Trace (Neg-Trace) mg/dL Urine Glucose (UA) Negative (Negative) mg/dL Urine Ketones Negative (Negative) mg/dL Urine Blood Negative (Negative) Urine Nitrite Negative (Negative) Ur Leukocyte Esterase Small (1+) H (Negative) Urine RBC 0-2 (0-2) /HPF Urine WBC 0-5 (0-5) /HPF Ur Squamous Epith Cells 0-2 (0-2) /HPF Urine Bacteria Trace (None Seen) Hyaline Casts 0-2 (0-2) /LPF Independent Interpretation I performed an independent interpretation of an: CT Scan Radiology Impression Discussion of test interpretation with radiology: I have reviewed the radiologist's reading. Radiologist Impression: LUNGS: Patchy groundglass densities are present throughout the lungs. There are linear densities in the left greater than right lung base. There is peribronchial thickening in the lower lobes. Pulmonary vessels are mildly enlarged. MEDIASTINUM: There is enlargement of the thyroid gland cyst in the left lobe 9 mm in diameter. Also, thyroid gland appears lower in attenuation than usual. CORONARY ARTERY CALCIFICATION: Present PLEURA: Small layering pleural effusions present on the right. AXILLA: No lymphadenopathy. UPPER ABDOMEN: Ill-defined 1 mm hyperdensity is present in the lateral mid left kidney. Hypoattenuating lesion 1 cm in diameter measuring -1 Hounsfield units in the anterior dome of the liver is consistent with a benign hepatic cyst. OSSEOUS STRUCTURES: Extensive degenerative disc disease is noted throughout the imaged portions of the spine with degenerative disc disease and facet arthropathy. There is a fracture with full shaft width offset involving the anterior second and third right ribs. No acute intracranial abnormality. No fracture evident. Multilevel degenerative disc disease and facet arthropathy with multilevel foraminal narrowing Acute superiorly displaced fracture distal right clavicle. Critical Care Time Critical Care Time Critical Care Time: Yes Total Critical Care Time: 35 Attestation: I have personally provided critical care time. Time includes review of lab data, radiology results, discussion with consultants, and monitoring for potential decompensation. Intervention performed as documented. Discharge Plan Discharge Clinical Impression: Clavicle fracture, Multiple fractures of ribs Patient Disposition: Home, Self-Care Instructions: Clavicle Fracture (ED), Rib Fracture (ED) Additional Instructions: Please follow-up with your primary care physician tomorrow. if you take tramadol, please make sure that you do not go out of your house, if possible stay sitting down or lying down as this medication may make you feel drowsy. If you have any worsening or new symptoms, please return to the emergency room or call 911 Prescriptions: New tramadol 50 mg tablet 50 mg PO TID PRN (Reason: pain) Qty: 10 0RF No Action tizanidine 4 mg tablet 4 mg PO BEDTIME PRN (Reason: low back pain) 30 Days Qty: 30 1RF cholecalciferol (vitamin D3) 50 mcg (2,000 unit) capsule 50 mcg PO DAILY multivitamin [Daily Multi-Vitamin] Tablet 1 tab PO DAILY aspirin 81 mg tablet,delayed release (DR/EC) 81 mg PO DAILY atorvastatin 10 mg tablet 10 mg PO BEDTIME 90 Days Qty: 90 3RF lidocaine 5 % adhesive patch,medicated 1 patch topical DAILY Qty: 15 5RF Rx Instructions: leave on most painful area for up to 12 hrs naproxen 250 mg tablet 250 mg PO BID PRN (Reason: pain) Qty: 30 0RF Rx Instructions: Take with food, do not take with any other nonsteroidal anti-inflammatory medications Print Language: Japanese
[2025-06-10 15:18] VITALS: BP 156/71; PULSE 67; RESP 20; TEMP 36.7; O2SAT 94
--- OUTSIDE RECORDS SUMMARY | 2025-06-10 16:27 | XMS_ITS | Patient Health Record ---
Author Organization [facility] Darrian hernandez [facility] Address [address] [place] [address] Care Team Providers Care Timber Surveyor Name Role Phone Justo PRYOR, Ashley Primary Care Provider Yosef Hammer Unavailable [phone] Allergies Allergen (clinical drug ingredient) Drug/Non Drug Allergy documented on EMR Reaction Allergy Type Onset Date Status Iodine rash Drug Allergy Active Latex Latex Unknown Allergy Active Reason For Referral No Information Medications Medication SIG (Take, Route, Fr equency, Duration) Notes Start Date End Date Status Aspirin Low Dose 81 MG 1 tablet Orally O nce a day; Duration: 30 day(s) Active Social History Tobacco use other than smoking: Question Answer Notes Are you an other tobacco user? No Problems Problem Type SNOMED Code ICD Code Onset Dates Problem Status W/U Status Risk Notes Problem Sprain of calcaneofibular ligament (62187071) Ankle Sprain/Late ral Ankle Sprain (845.02) Active confirmed Problem Edema (06622365) Edema (782.3) Active confirmed Problem Pain in limb (18694519) Pain in Limb (729.5) Active confirmed Problem Sprain of foot (37426233) Sprain, Foot (845.10) Active confirmed Problem Acquired hammer toe of right foot (9400600353502037) Other hammer toe(s) (acquired), right foot (M20.41) Active confirmed Problem Acquired hammer toe of left foot (9590268923055076) Other hammer toe(s) (acquired), left foot (M20.42) Active confirmed Encounters Encounter Location Date Provider Diagnosis [facility] [address] [place] [address] 07/08/2024 Yosef Zhong Plan Of Treatment Pending Test Test Name Order Date X ray : Foot, left 2V 02/06/2012 X ray : Foot, right 2V 02/06/2012 X ray : Foot, right 3V 06/12/2013 [id number] Destruction, 1-14 02/06/2012 Insurance Providers Payer Name Payer Address Payer Phone Subscriber Number Group Number Insured Name Patient Relationship to Insured Coverage Start Date Coverage End Date [facility] [employer] Claims [address] [place] [id number] Eugenia Salguero Self - patient is the insured Medical (General) History Medical History History ICD Code thyroid disorder hepatitis Arthritis Back,Hip,and Knee pain Surgical History Surgery Date(Month/Year) Wrist surgery-left 01/25/13 Hospitalization History Reason Date(Month/Year) wrist surgery 01/25/13
--- OUTSIDE RECORDS SUMMARY | 2025-06-10 16:27 | XMS_ITS | Patient Health Record ---
Author Organization [facility] Address [address] [place] [address] Care Team Providers Care Alberene Stone Setter Name Role Phone Gaye Medrano MD Primary Care Provider Artur Carrington [phone] Allergies Allergen (clinical drug ingredient) Drug/Non Drug Allergy documented on EMR Reaction Allergy Type Onset Date Status Iodine Unknown Drug Allergy Active Reason For Referral No Information Medications Medication SIG (Take, Route, Frequency, Duration) Notes Start Date End Date Status Aspir-81 81 MG 1 tablet Orally Once a day Active Colyte w Flavor Packs 240 GM as directed Orally as directed for 1 day(s) 12/08/2015 Active Colyte w Flavor Packs 240 GM as directed Orally as directed for 1 day(s) 03/06/2015 Active Problems Problem Type SNOMED Code ICD Code Onset Dates Problem Status W/U Status Risk Notes Problem Colon cancer screening (184352064) Colon cancer screening (V76.51) Active confirmed Problem Long-term use of aspirin therapy (V58.66) Active confirmed Plan Of Treatment Future Test Test Name Order Date COLONOSCOPY 03/06/2015 Insurance Providers Payer Name Payer Address Payer Phone Subscriber Number Group Number Insured Name Patient Relationship to Insured Coverage Start Date Coverage End Date [facility] [address] [facility] [place] [address] [phone] [id number] [employer] Betancur Self - patient is the insured Medical (General) History Medical History History ICD Code Denies [place],DM,CVA,Lung disease,renal dise ase Negative colonoscopy in 10/2005 She has some thyroid issues that is followed by Dr. Mcdonald, although she is presently not on any medication for that She had a barium swallow in May 2012 describing a small Zenker's diverticulum and small hiatal hernia Surgical History Surgery Date(Month/Year) Left wrist surgery for a fracture
[2025-06-10 17:25] LABS: Appearance Urine Clear; Glucose Urine UA Negative (Negative); PH 6.0 (5.0-9.0); Specific Gravity - Urine 1.020 (1.005-1.025); UMIC TRIGGER UACC YES
[2025-06-10 17:32] LABS: UACC Culture Trigger YES
[2025-06-10 17:53] VITALS: BP 156/71; PULSE 67; RESP 20; TEMP 36.7; O2SAT 94
== END 2025-06-10 17:53 | disposition home or self-care (01) ==
PROVIDERS: Emergency Provider Emergency Medicine; PCP Internal Medicine
DX: S22.41XA Multiple fractures of ribs, right side, initial encounter for closed fracture (principal); S42.031A Displaced fracture of lateral end of right clavicle, initial encounter for closed fracture; W18.30XA Fall on same level, unspecified, initial encounter; Y93.H2 Activity, gardening and landscaping; Y92.89 Other specified places as the place of occurrence of the external cause; Y99.9 Unspecified external cause status; M25.511 Pain in right shoulder; M54.6 Pain in thoracic spine; E55.9 Vitamin D deficiency, unspecified; Z79.899 Other long term (current) drug therapy
CPT/HCPCS: 70450; 71250; 72125; 73030; 81001; 87086; 99283; 99285; 99291

== ENCOUNTER → 2025-06-10 13:23 | Outpatient (BNV) | payer MEDICARE, SELFPAY | PROVIDERS: PCP Internal Medicine; Visit Provider Radiology Diagnostic Radiology | DX: S32.411A Displaced fracture of anterior wall of right acetabulum, initial encounter for closed fracture (principal); J90 Pleural effusion, not elsewhere classified; M47.812 Spondylosis without myelopathy or radiculopathy, cervical region; M50.30 Other cervical disc degeneration, unspecified cervical region; S09.90XA Unspecified injury of head, initial encounter; S42.031A Displaced fracture of lateral end of right clavicle, initial encounter for closed fracture; W19.XXXA Unspecified fall, initial encounter | CPT/HCPCS: 70450; 71250; 72125; 73030 ==

== ENCOUNTER 2025-06-16 10:17 | Outpatient (AMB) | payer MEDICARE, SELFPAY ==
[2025-06-16 10:19] VITALS: BP 136/84; PULSE 68; O2SAT 94; BMI 25.8
--- NOTE | 2025-06-16 10:19 | A.OFFPC_ITS ---
Vital Signs 06/16/25 10:19 Height 5 ft 2 in Weight 141 lb 4 oz BMI 25.8 BP 136/84 Blood Pressure Location Lt brachial Position Sitting Pulse 68 Pulse Source Pulse Oximeter Pulse Oximetry (%) 94 Oxygen Delivery Method Room Air Intake Visit Reasons: fractured ribs /discuss kidneys Skidway Worker Required: No Accompanied by: Self / Same As Patient Allergies iodine (IODINE) Allergy (Unknown, Verified 06/16/25 12:25) RASH, rash, itching, redness latex Allergy (Unknown, Verified 06/16/25 12:25) rash Medication List - Last Reconciled 06/16/25 by Pilo Kemp MD aspirin 81 mg PO DAILY atorvastatin 10 mg PO BEDTIME 90 days cholecalciferol (vitamin D3) 50 mcg PO DAILY lidocaine 5% 1 patch topical DAILY multivitamin (Daily Multi-Vitamin tablet) 1 tab PO DAILY naproxen 250 mg PO BID PRN tizanidine 4 mg PO BEDTIME PRN 30 days tramadol 50 mg PO TID PRN Tobacco use date assessed: 06/16/25 Fall risk assessment: 1 Fall in past year Dental Screening Dental Screen Date: 06/16/25 Did you have a dental visit in the last 12 months?: Yes Did you have a dental problem in the last 6 months where you did not have access to dental care?: No Was dental information given to patient?: Patient has dentist HPI fractured ribs /discuss kidneys HPI Details Patient comes in today for follow up of her injuries sustained during a recent fall She reportedly lost her balance while gardening at home and fell onto her right side/right shoulder about 10 days ago on 06/06/2025 and states that she has been experiencing persistent increased pain on her right upper back and around her right shoulder areas, which prompted her to go to the ER 4 days later on 06/10/2025 Imaging studies done at the ER revealed (+) multiple injuries, including anterior right 2nd and 3rd rib fractures, an acute superiorly displaced right distal clavicular fracture and a posterior medial right second rib fracture Head CT came out negative Patient is currently experiencing a lot of pain over right upper back, around right shoulder in over the right anterior chest wall areas She also notes some pain and swelling over her left ankle at present - is not really sure if this is related to her recent fall or due to a different reason They are looking for referral to orthopedic for further recommendations of her current injuries and per her son, she will also require some help at home currently Patient lives with her , who is presently suffering from dementia and is not able to provide any help at home Her son states that they come to help her whenever they can but he lives in [place] and has to also go to work everyday so his ability to come over to help whenever needed is somewhat limited by his own schedule Patient is currently denies any headaches or dizziness Denies any increased shortness of breath No nausea/vomiting, no abdominal pain No change in bowel habits noted PFS Medical History Osteopenia Vitamin D deficiency History of deep venous thrombosis (DVT) of distal vein of right lower extremity (~07/2016) Lumbar degenerative disc disease Osteopenia of left femoral neck Postmenopause 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 Tubular adenoma of colon Complex regional pain syndrome of left upper extremity Fracture of right hip History of DVT (deep vein thrombosis) Fracture of left wrist 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 History of left breast cancer Surgical History S/P lumpectomy, left breast History of hip surgery H/O colonoscopy History of breast biopsy Family History Father Hx of stroke associated with congenital heart disease Mother Hyperthyroidism Social History Housing: House Alcohol intake: never Patient Tobacco Use Status: Never used Tobacco e-Cigarette/Vaping Use: Never Used Second Hand Smoke Exposure: No service: No Current occupational status: retired Sexual orientation: Straight/Heterosexual Gender identity: Female Cognitive needs: No Hearing needs: No Vision needs: Yes (Glasses) Questionnaire PHQ-9 Over the last 2 weeks, how often have you been bothered by any of the following problems? 1. Little interest or pleasure in doing things: nearly every day 2. Feeling down, depressed, or hopeless: several days 3. Trouble falling or staying asleep, or sleeping too much: several days 4. Feeling tired or having little energy: several days 5. Poor appetite or overeating: several days 6. Feeling bad about yourself - or that you are a failure or have let yourself or your family down: not at all 7. Trouble concentrating on things, such as reading the newspaper or watching television: not at all 8. Moving or speaking so slowly that other people could have noticed. Or the opposite - being so fidgety or restless that you have been moving around a lot more than usual: not at all 9. Thoughts that you would be better off or of hurting yourself in some way: not at all Total score: 7 Depression Screening Interpretation: Positive Depression Screening Follow-up: Follow-up Visit Requested Depression Screening Done: Yes 24469 - PHQ-9 Billing: Yes Source: Developed by Drs. Artur Adhikari, Bonnie Flor, Yash Palacios and colleagues, with an educational ivelisse from [employer]. Thrive Questionnaire Date Thrive assessed: 06/16/25 I am a: Parent/Caregiver What is your living situation today?: I have a steady place to live Within the past 12 months, did the food you bought not last and you didn't have the money to get more?: Never true Within the past 12 months, did you worry whether your food would run out before you got money to buy more?: Never true Do you have trouble paying for medicines?: No Do you have trouble getting transportation to medical appointments?: No Do you have trouble paying your heating and electricity bill?: No Do you have trouble taking care of your child, family member or friend?: No Do you have trouble with day-to-day activities such as bathing, preparing meals, shopping, managing finances, etc.?: No Are you currently unemployed and looking for a job?: No Are you interested in more education?: No Please select the resources that you would like help with: Care for elder or disabled Currently or been in a relationship where the following occur: No concerns reported THRIVE Score: 0 AUDIT C Alcohol Use Questionnaire (AUDIT-C) 1. How often do you have a drink containing alcohol?: Monthly or less 2. How many drinks containing alcohol do you have on a typical day when you are drinking?: 1 or 2 3. How often do you have six or more drinks on one occasion?: Never Total Score: 1 Score Reviewed/Action Taken: Yes NATALIA-7 AMB Questionnaire NATALIA-7 Date NATALIA - 7 assessed: 06/16/25 Feeling nervous, anxious, or on edge: 1 = Several days Not being able to stop or control worryin = Several days Worrying too much about different things: 1 = Several days Trouble relaxin = Several days Being so restless that it is hard to sit still: 1 = Several days Becoming easily annoyed or irritable: 0 = Not at all Feeling afraid as if something awful might happen: 1 = Several days Total NATALIA-7 score (0-4 normal; 5-9 mild; 10-14 moderate; 15-21 severe): 6 Source: Developed by Drs. Artur Adhikari, Bonnie Flor, Yash Palacios and colleagues, with an educational ivelisse from [employer]. Review of Systems Const Denies chills, Reports fatigue, Denies fever(s) and Denies headache(s) ENT Denies dysphagia, Denies dizziness, Denies otalgia, Denies headache(s), Reports neck pain, Denies odynophagia and Denies sore throat Card Reports chest pain (mostly over the right chest wall area - related to her current injuries), Denies palpitations and Denies dyspnea Resp Denies chest congestion, Denies cough and Denies dyspnea GI Denies abdominal pain, Denies constipation, Denies dysphagia, Denies heartburn, Denies diarrhea, Denies nausea, Denies odynophagia and Denies vomiting Denies difficulty voiding, Denies nocturia, Denies dysuria and Denies urinary urgency Musc Reports back pain (over the lower back / SI joints; more recently over the right upper back), Reports arthralgias (around the right shoulder area; presently over the left ankle), Reports joint swelling (over the left ankle) and Reports neck pain Skin/Breast Details: (+) scattered bruising on the right upper back and around the right shoulder and right upper arm Denies rash Neuro Denies dizziness and Denies headache(s) Endo Reports fatigue and Denies palpitations Physical exam (Primary Care) Vital Signs: Last Vital Signs Pulse 68 06/16/25 10:19 BP 136/84 06/16/25 10:19 Pulse Ox 94 06/16/25 10:19 Oxygen Delivery Method Room Air 06/16/25 10:19 BMI result Body Mass Index 25.8 Tobacco/Smoking Status: Tobacco use Status Tobacco use date assessed 06/16/25 06/16/25 10:22 Patient Tobacco Use Status Never used Tobacco 06/16/25 10:22 e-Cigarette/Vaping Use Never Used 06/16/25 10:22 PHQ-9: PHQ-9 Score PHQ-9: Total score 7 06/16/25 10:55 Depression Screening Interpretation: Positive Depression Screening Follow-up: Follow-up Visit Requested Thrive Assessment: Date of Thrive Assessment Date Thrive assessed 06/16/25 06/16/25 10:22 Currently or been in a relationship where the following occur: No concerns reported Const General: no acute distress and alert HENMT Throat: Yes posterior oropharynx normal and Yes tonsils normal (no TP congestion) Neck Neck: Yes supple and No lymphadenopathy Thyroid: Thyroid normal Chest Other: (+) tenderness on palpation over the right upper chest wall area Resp Auscultation: clear to auscultation bilaterally, no rales and no wheezes Cardio Rate: regular rate Rhythm: regular rhythm Heart sounds: no murmurs GI Palpation (GI): Soft to palpation and nontender Auscultation: normal bowel sounds General: Yes no CVA tenderness Back/Spine/Pelvis Back: no CVA tenderness and ecchymosis (scattered over the R upper back, around R shoulder and on R upper arm) Cervical Spine: cervical muscular tenderness (especially over the right side) Thoracic/Lumbar Spine: paraspinal muscle tenderness on the right in the upper thoracic and No lumbar spinal tenderness Skin Rashes: no rashes Extrem Other: right arm is currently in a shoulder sling; (+) tenderness in the right shoulder on ROM General: Yes no clubbing, cyanosis or edema Left lower extremity: ankle Details: tenderness (mild) and swelling Details: laterally Coding Level of Care Code Est Pt Level 4 (20177) Diagnoses Closed displaced fracture of acromial end of right clavicle, sequela S42.031S Encounter type: sequela Clavicle location: lateral end Fracture type: closed Fracture alignment: displaced Multiple fractures of ribs, right side, sequela S22.41XS Status post fall Z91.81 Pain and swelling of left ankle M25.572; M25.472 Additional Codes PHQ-9 - 37503 - PHQ-9 Billing: Yes ([id number]) Assessment & Plan Assessment & Plan (1) Right clavicle fracture: Code(s): S42.001A - Fracture of unspecified part of right clavicle, initial encounter for closed fracture Category: Medical Qualifiers: Encounter type: sequela Clavicle location: lateral end Fracture type: closed Fracture alignment: displaced Qualified Code(s): S42.031S - Displaced fracture of lateral end of right clavicle, sequela Plan: Right shoulder x-rays done last week revealed (+) acute superiorly displaced fracture distal right clavicle Patient's right arm is currently in a shoulder sling and she is advised to keep this on until she is seen and evaluated by Orthopedics Will refer her to orthopedics for further evaluation and management (2) Multiple fractures of ribs, right side, sequela: Code(s): S22.41XS - Multiple fractures of ribs, right side, sequela Category: Medical Plan: Chest CT done last week revealed (+) anterior right second and third rib fractures Cervical spine CT showed (+) posterior medial right second rib fracture Patient is advised that there is not much else we need to do at this time for her rib fractures and they should heal on their own slowly over time She is advised that she can take her current medications on an as-needed basis to help with her pain in the meantime, including tramadol 50 mg TID PRN (Rx refilled) (3) Status post fall: Code(s): Z91.81 - History of falling Category: Medical Plan: Fall occurred last week on 06/06/2025 - please refer to today's [facility] for further information Patient is currently experiencing significant pain due to her injuries and is quite limited with her daily activities at this time She lives alone with her , which is currently suffering from dementia and is not able to provide any help Will refer patient for home health services, at least short term, until she has recovered from her current injuries Will also send patient for some follow-up labs to reassess her renal function to ensure that this is not impacted by her recent injuries (4) Pain and swelling of left ankle: Code(s): M25.572 - Pain in left ankle and joints of left foot; M25.472 - Effusion, left ankle Category: Medical Plan: Will send patient for x-rays of the left ankle ELÍAS for further evaluation Plan Follow up as scheduled next month / in a couple of weeks Orders: Orders XR ankle LT min 3V 06/16/25 M25.572 - Pain in left ankle and joints of left foot, Z91.81 - History of falling Complete Blood Count Auto Diff 06/16/25 D64.9 - Anemia, unspecified Comprehensive Met. Panel 06/16/25 S22.41XS - Multiple fractures of ribs, right side, sequela, Z91.81 - History of falling Referrals Home Health Referral S22.41XS - Multiple fractures of ribs, right side, sequela, S42.001A - Fracture of unspecified part of right clavicle, initial encounter for closed fracture, Z91.81 - History of falling Orthopedics Referral S22.41XS - Multiple fractures of ribs, right side, sequela, S42.001A - Fracture of unspecified part of right clavicle, initial encounter for closed fracture Medications: Refilled tramadol 50 mg PO TID PRN 60 tabs 0RF severe pain S22.41XS - Multiple fractures of ribs, right side, sequela, S42.001A - Fracture of unspecified part of right clavicle, initial encounter for closed fracture
--- OUTSIDE RECORDS SUMMARY | 2025-06-16 11:16 | XMS_ITS | Patient Health Record ---
Author Organization [facility] Address [address] [place] [address] Care Team Providers Care Cyber Security Name Role Phone Gaye Medrano MD Primary Care Provider Artur Carrington [phone] Allergies Allergen (clinical drug ingredient) Drug/Non Drug [...] Status Risk Notes Problem Colon cancer screening (584112172) Colon cancer screening (V76.51) Active confirmed Problem Long-term use of aspirin therapy (V58.66) Active confirmed Plan Of Treatment Future Test Test Name Order Date COLONOSCOPY 03/06/2015 Insurance Providers Payer Name Payer Address Payer Phone Subscriber Number Group Number Insured Name Patient Relationship to Insured Coverage Start Date Coverage End Date [facility] [address] [place] [phone] [id number] LISAILYAHOLLIS Betancur Self - patient is the insured Medical (General) History Medical History History ICD Code Denies NC,DM,CVA,Lung disease,renal dise ase Negative colonoscopy in 10/2005 She has some thyroid issues that is followed by Dr. Mcdonald, although she is presently not on any medication for that She had a barium swallow in May 2012 describing a small Zenker's diverticulum and small hiatal hernia Surgical History Surgery Date(Month/Year) Left wrist surgery for a fracture
--- OUTSIDE RECORDS SUMMARY | 2025-06-16 11:16 | XMS_ITS | Patient Health Record ---
Author Organization [facility] Darrian hernandez [place] Address [address] [place] [address] Care Team Providers Care Compensation Agent Name Role Phone Justo PRYOR, Dennison Primary Care Provider Yosef Hammer Unavailable [phone] Allergies Allergen (clinical drug ingredient) Drug/Non Drug [...] Risk Notes Problem Sprain of calcaneofibular ligament (60280299) Ankle Sprain/Late ral Ankle Sprain (845.02) Active confirmed Problem Edema (90443871) Edema (782.3) Active confirmed Problem Pain in limb (71977644) Pain in Limb (729.5) Active confirmed Problem Sprain of foot (48392706) Sprain, Foot (845.10) Active confirmed Problem Acquired hammer toe of right foot (0181948239889845) Other hammer toe(s) (acquired), right foot (M20.41) Active confirmed Problem Acquired hammer toe of left foot (3454678857047853) Other hammer toe(s) (acquired), left foot (M20.42) Active confirmed Encounters Encounter Location Date Provider Diagnosis [facility] [address] [place] [address] 07/08/2024 Yosef Zhong Plan Of Treatment Pending Test Test Name Order Date X ray : Foot, left 2V 02/06/2012 X ray : Foot, right 2V 02/06/2012 X ray : Foot, right 3V 06/12/2013 [id number] Destruction, 1-14 02/06/2012 Insurance Providers Payer Name Payer Address Payer Phone Subscriber Number Group Number Insured Name Patient Relationship to Insured Coverage Start Date Coverage End Date [facility] [employer] Claims [address] [place] [address] [id number] Eugenia Salguero Self - patient is the insured Medical (General) History Medical History History ICD Code thyroid disorder hepatitis Arthritis Back,Hip,and Knee pain Surgical History Surgery Date(Month/Year) Wrist surgery-left 01/25/13 Hospitalization History Reason Date(Month/Year) wrist surgery 01/25/13
== END 2025-06-16 10:55 | disposition home or self-care (01) ==
LOC: HO.HMCH 10:18
PROVIDERS: PCP Internal Medicine; Visit Provider Internal Medicine
DX: S42.031A Displaced fracture of lateral end of right clavicle, initial encounter for closed fracture (principal); S22.41XA Multiple fractures of ribs, right side, initial encounter for closed fracture; Z91.81 History of falling; M25.572 Pain in left ankle and joints of left foot; M25.472 Effusion, left ankle

== ENCOUNTER 2025-06-16 10:17 | Outpatient (REF) | payer MEDICARE, SELFPAY ==
--- NOTE | ~2025-06-16 | XR_ITS ---
EXAMINATION: XR ANKLE 3 OR MORE VIEWS LEFT HISTORY: Z91.81 - History of falling COMPARISON: There are no prior studies available for comparison. FINDINGS: Three views of the left ankle are submitted. The bones are osteopenic. There is no fracture or dislocation. There is mild narrowing of the lateral aspect of the tibiotalar joint. There is a small plantar calcaneal spur. There is soft tissue swelling over the lateral malleolus. XR/XR ankle LT min 3V IMPRESSION: Soft tissue swelling over the lateral malleolus. Mild narrowing of the lateral aspect of the tibiotalar joint. No evidence of fracture of the left ankle. Electronically signed by: Artur Gracia MD 06/16/2025 12:20 PM EDT
[2025-06-16 11:14] LABS: MANUAL DIFF FLAG NO
[2025-06-16 12:25] LABS: Hematocrit 37.0 % (37.0-47.0); Hemoglobin 12.3 g/dl (12.0-16.0); Imm Gran Abs Auto 0.01 X10*3/uL (0.00-0.03); Imm Gran Pct Auto 0.2 % (0.0-0.4); Lymphocytes Absolute Auto 2.1 X10*3/uL (1.2-4.9); Mean Corpuscular HGB Conc 33.2 g/dl (31.0-35.0); Mean Corpuscular Hemoglobin 31.0 pg (27.0-33.0); Mean Corpuscular Volume 93.2 fL (80.0-98.0); NRBC Abs Auto 0.000 X10*3/uL (0.0-0.012); NRBC Pct Auto 0.0 /100WBC (0.0-0.2); Platelet Count 342 X10*3/uL (160-400); Red Blood Count 3.97 X10*6/uL (4.20-5.50); White Blood Count 6.6 X10*3/uL (4.8-10.8)
[2025-06-16 12:31] LABS: Alanine Aminotransferase 15 U/L (0-31); Albumin Level 4.5 g/dL (3.5-5.0); Alkaline Phosphatase 59 U/L (39-117); Anion Gap 14 (12-20); Aspartate Amino Transferase 27 U/L (5-31); Blood Urea Nitrogen 18 mg/dL (9-16); Calcium 9.4 mg/dL (8.4-10.2); Carbon Dioxide 26 mmol/L (22-29); Chloride 106 mmol/L (96-108); Estimated Glomerular Filt Rate > 60; Potassium 4.5 mmol/L (3.3-5.1); Sodium 141 mmol/L (135-145); Total Protein 7.8 g/dL (6.5-8.0)
== END 2025-06-16 10:18 | disposition home or self-care (01) ==
LOC: HO.XRAY 10:17
PROVIDERS: PCP Internal Medicine; Visit Provider Internal Medicine
DX: Z13.31 Encounter for screening for depression (principal); S42.031S Displaced fracture of lateral end of right clavicle, sequela; S22.41XS Multiple fractures of ribs, right side, sequela; M25.572 Pain in left ankle and joints of left foot; M25.472 Effusion, left ankle; Z91.81 History of falling; D64.9 Anemia, unspecified
CPT/HCPCS: 36415; 73610; 80053; 85025; 96127; 99212

== ENCOUNTER → 2025-06-16 11:14 | Outpatient (BNV) | payer MEDICARE, SELFPAY | PROVIDERS: PCP Internal Medicine; Visit Provider Radiology Diagnostic Radiology | DX: R22.42 Localized swelling, mass and lump, left lower limb (principal) | CPT/HCPCS: 73610 ==

== ENCOUNTER 2025-07-02 10:37 | Outpatient (REF) | payer MEDICARE, SELFPAY ==
--- NOTE | ~2025-07-02 | XR_ITS ---
EXAMINATION: XR CLAVICLE RIGHT HISTORY: S42.009A - Fracture of unspecified part of unspecified clavicle, initial... COMPARISON: Comparison is made with the prior examination of the right shoulder dated 06/10/2025. FINDINGS: Two views of the right clavicle are submitted. Osseous mineralization is normal. Again seen is a moderately displaced fracture of the distal clavicle. The AC joint space is preserved. The soft tissues are unremarkable. XR/XR clavicle RT IMPRESSION: Moderately displaced fracture of the distal clavicle without change. Electronically signed by: Artur Gracia MD 07/02/2025 12:59 PM EDT
--- OUTSIDE RECORDS SUMMARY | 2025-07-03 11:15 | XMS_ITS | Patient Health Record ---
Author Organization [facility] Darrian hernandez [place] Address [address] [place] [address] Care Team Providers Care Picture Copyist Name Role Phone Justo PRYOR, [place] Primary Care Provider Yosef Hammer Unavailable [phone] Allergies Allergen (clinical drug ingredient) Drug/Non Drug [...] Risk Notes Problem Sprain of calcaneofibular ligament (17610773) Ankle Sprain/Late ral Ankle Sprain (845.02) Active confirmed Problem Edema (29713834) Edema (782.3) Active confirmed Problem Pain in limb (26027825) Pain in Limb (729.5) Active confirmed Problem Sprain of foot (46719414) Sprain, Foot (845.10) Active confirmed Problem Acquired hammer toe of right foot (2864049400975500) Other hammer toe(s) (acquired), right foot (M20.41) Active confirmed Problem Acquired hammer toe of left foot (1642157637533410) Other hammer toe(s) (acquired), left foot (M20.42) Active confirmed Encounters Encounter Location Date Provider Diagnosis [facility] [address] [place] [address] 07/08/2024 Yosef Zhong Plan Of Treatment Pending Test Test Name Order Date X ray : Foot, left 2V 02/06/2012 X ray : Foot, right 2V 02/06/2012 X ray : Foot, right 3V 06/12/2013 [id number] Destruction, 1-14 02/06/2012 Insurance Providers Payer Name Payer Address Payer Phone Subscriber Number Group Number Insured Name Patient Relationship to Insured Coverage Start Date Coverage End Date [facility] [employer] S[employer] Claims [address] [place] [address] [id number] Eugenia Salguero Self - patient is the insured Medical (General) History Medical History History ICD Code thyroid disorder hepatitis Arthritis Back,Hip,and Knee pain Surgical History Surgery Date(Month/Year) Wrist surgery-left 01/25/13 Hospitalization History Reason Date(Month/Year) wrist surgery 01/25/13
--- OUTSIDE RECORDS SUMMARY | 2025-07-03 11:16 | XMS_ITS | Patient Health Record ---
Author Organization [facility] Address [address] [place] [address] Care Team Providers Care Neurological Surgery Teacher Name Role Phone Gaye Medrano MD Primary Care Provider Artur Carrington [phone] Allergies Allergen (clinical drug ingredient) Drug/Non Drug [...] Status Risk Notes Problem Colon cancer screening (827181835) Colon cancer screening (V76.51) Active confirmed Problem Long-term use of aspirin therapy (V58.66) Active confirmed Plan Of Treatment Future Test Test Name Order Date COLONOSCOPY 03/06/2015 Insurance Providers Payer Name Payer Address Payer Phone Subscriber Number Group Number Insured Name Patient Relationship to Insured Coverage Start Date Coverage End Date [facility] [address] [place] [phone] [id number] LISAILYAHOLLIS Betancur Self - patient is the insured Medical (General) History Medical History History ICD Code Denies [place],DM,CVA,Lung disease,renal dise ase Negative colonoscopy in 10/2005 She has some thyroid issues that is followed by Dr. Mcdonald, although she is presently not on any medication for that She had a barium swallow in May 2012 describing a small Zenker's diverticulum and small hiatal hernia Surgical History Surgery Date(Month/Year) Left wrist surgery for a fracture
== END 2025-07-02 10:38 | disposition home or self-care (01) ==
LOC: HO.HOSX 10:37
PROVIDERS: Visit Provider Physician Assistant
DX: S42.031S Displaced fracture of lateral end of right clavicle, sequela (principal)
CPT/HCPCS: 73000; 99202

== ENCOUNTER 2025-07-02 10:55 | Outpatient (AMB) | payer MEDICARE, SELFPAY ==
--- NOTE | 2025-07-02 11:15 | MHC.OFFVIS ---
Vital Signs 07/02/25 11:17 Height 5 ft 2 in Weight 141 lb BMI 25.8 Handedness Right Intake Visit Reasons: FC-right clavicle fracture Intake Note: Eugenia is a 85 year old right hand dominant female who presents with her son Luis today for a fracture care visit for her right clavicle status post emergency department visit on 06/10/25. Per ED note patient fell backwards while gardening. She expresses this happened on 06/06/25. Patient reports she is still having pain in the right am and right shoulder with very limited ROM. She is utilizing a sling her son bought for her and has been wearing this since her injury. She is taking oxycodone 5 mg 2-3 times a day and reports mild relief. She is having difficulty with her ADLs and sleeping since this injury. son is unsure if she is still taking tizanidine. Accompanied by: Son Allergies iodine (IODINE) Allergy (Unknown, Verified 07/02/25 11:22) RASH, rash, itching, redness latex Allergy (Unknown, Verified 07/02/25 11:22) rash HPI HPI FC-right clavicle fracture: Details: 85-year-old female presents to the office today accompanied by her son for an injury she sustained to her right clavicle on 06/06/2025. She states she was gardening when she fell backwards and injured her right shoulder. She was seen in the emergency department on 06/10 where she had x-rays of the right shoulder demonstrating a moderately displaced distal clavicle fracture. She was placed in a sling and there was a referral put into her primary care provider for a follow-up. The patient's son verbalizes frustration with getting an appointment with his primary and also in our office. With reviewing the patient's chart I can see there was a referral placed to the primary for a follow up and it looks like there was some difficulty reaching his office to get an actual appointment. Patient was finally seen on 06/16 which is 10 days post injury. Referral was then made from the primary care's office to our office for an orthopedic evaluation. At that time the injury being almost 2 weeks out, the recommendation was to see the patient in 2-3 weeks for routine follow-up since she had already seen her primary. Since the time of injury the patient has been taking oxycodone for pain. She states it hurts more at nighttime. 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 History of left breast cancer Surgical History S/P lumpectomy, left breast History of hip surgery H/O colonoscopy History of breast biopsy Family History Father Hx of stroke associated with congenital heart disease Mother Hyperthyroidism Social History Housing: House Alcohol intake: never Patient Tobacco Use Status: Never used Tobacco e-Cigarette/Vaping Use: Never Used Second Hand Smoke Exposure: No service: No Current occupational status: retired Sexual orientation: Straight/Heterosexual Gender identity: Female Cognitive needs: No Hearing needs: No Vision needs: Yes (Glasses) Review of Systems Const All systems reviewed & are unremarkable except as noted in HPI and below Physical Exam Vital Signs: BMI result Body Mass Index 25.8 Const General: cooperative and no acute distress Orientation/consciousness: patient oriented x3 Resp Effort & Inspection: normal respiratory effort and able to speak in complete sentences Cardio Peripheral pulses: Peripheral pulses 2+ throughout Neuro General: patient oriented x3 Extrem Other: Right clavicle skin is intact there is no open wounds or skin breakdown. She does have a bony prominence over the distal clavicle. No tenderness to palpation. She has full sensation and pulses are intact. Office Procedures AMB Fracture Care Fracture Billing Code: Fracture Billing Code Results Reviewed Results Reviewed: X-rays of the right clavicle obtained in the office today and reviewed by me show a moderately displaced distal clavicle fracture. Assessment & Plan Assessment & Plan (1) Right clavicle fracture: Code(s): S42.001A - Fracture of unspecified part of right clavicle, initial encounter for closed fracture Category: Medical Qualifiers: Encounter type: sequela Clavicle location: lateral end Fracture type: closed Fracture alignment: displaced Qualified Code(s): S42.031S - Displaced fracture of lateral end of right clavicle, sequela Plan: I discussed the extent of the injury to the patient and her son near the office today. I explained distal clavicle fractures are typically nonoperative. Typically there are 6 weeks of limited activity with the right upper extremity since the date of injury to reduce the risk of further displacement. She can discontinue the use of the sling in the house and keep her arm by her side no excessive reaching or carrying. She can use the sling outside of the house if she feels more comfortable to avoid injury. I did stressed the importance of good posture and scapular stabilization to aid in recovery. I would like to see her back in 4-6 weeks with repeat x-rays of the right clavicle, sooner if needed. She was given a prescription for oxycodone to take at nighttime to help with her discomfort. Orders: Orders XR clavicle RT Today S42.009A - Fracture of unspecified part of unspecified clavicle, initial encounter for closed fracture Coding Level of Care Code New Pt Level 3 (99631) Complex EM visit Add On G2211 Diagnoses Closed displaced fracture of acromial end of right clavicle, sequela S42.031S Encounter type: sequela Clavicle location: lateral end Fracture type: closed Fracture alignment: displaced CPT Codes Fracture Care - Fracture Billing Code: Fracture Billing Code ([id number])
[2025-07-02 11:17] VITALS: BMI 25.8
--- OUTSIDE RECORDS SUMMARY | 2025-07-02 11:38 | XMS_ITS | Patient Health Record ---
Author Organization [facility] Darrian hernandez [place] Address [address] [place] [address] Care Team Providers Care Continuous Crusher Operator Name Role Phone Justo PRYOR, [place] Primary Care Provider Yosef Hammer Unavailable [phone] Allergies Allergen (clinical drug ingredient) Drug/Non Drug [...] Risk Notes Problem Sprain of calcaneofibular ligament (29625209) Ankle Sprain/Late ral Ankle Sprain (845.02) Active confirmed Problem Edema (24326122) Edema (782.3) Active confirmed Problem Pain in limb (64592644) Pain in Limb (729.5) Active confirmed Problem Sprain of foot (55646150) Sprain, Foot (845.10) Active confirmed Problem Acquired hammer toe of right foot (6995672939643779) Other hammer toe(s) (acquired), right foot (M20.41) Active confirmed Problem Acquired hammer toe of left foot (7387972720708492) Other hammer toe(s) (acquired), left foot (M20.42) Active confirmed Encounters Encounter Location Date Provider Diagnosis [facility] [address] [place] [address] 07/08/2024 Yosef Zhong Plan Of Treatment Pending Test Test Name Order Date X ray : Foot, left 2V 02/06/2012 X ray : Foot, right 2V 02/06/2012 X ray : Foot, right 3V 06/12/2013 [id number] Destruction, 1-14 02/06/2012 Insurance Providers Payer Name Payer Address Payer Phone Subscriber Number Group Number Insured Name Patient Relationship to Insured Coverage Start Date Coverage End Date [facility] [employer] Claims [address] [place] [address] [id number] Eugenia Salguero Self - patient is the insured Medical (General) History Medical History History ICD Code thyroid disorder hepatitis Arthritis Back,Hip,and Knee pain Surgical History Surgery Date(Month/Year) Wrist surgery-left 01/25/13 Hospitalization History Reason Date(Month/Year) wrist surgery 01/25/13
--- OUTSIDE RECORDS SUMMARY | 2025-07-02 11:38 | XMS_ITS | Patient Health Record ---
Author Organization [facility] Address [address] [place] [address] Care Team Providers Care Relationship Manager Name Role Phone Gaye Medrano MD Primary Care Provider Artur Carrington [phone] Allergies Allergen (clinical drug ingredient) Drug/Non Drug [...] Status Risk Notes Problem Colon cancer screening (316343979) Colon cancer screening (V76.51) Active confirmed Problem Long-term use of aspirin therapy (V58.66) Active confirmed Plan Of Treatment Future Test Test Name Order Date COLONOSCOPY 03/06/2015 Insurance Providers Payer Name Payer Address Payer Phone Subscriber Number Group Number Insured Name Patient Relationship to Insured Coverage Start Date Coverage End Date [facility] [address] [place] [phone] [id number] BRIDGETELLIOTTHOLLIS Betancur Self - patient is the insured Medical (General) History Medical History History ICD Code Denies [place],DM,CVA,Lung disease,renal dise ase Negative colonoscopy in 10/2005 She has some thyroid issues that is followed by Dr. Mcdonald, although she is presently not on any medication for that She had a barium swallow in May 2012 describing a small Zenker's diverticulum and small hiatal hernia Surgical History Surgery Date(Month/Year) Left wrist surgery for a fracture
== END 2025-07-02 11:48 | disposition home or self-care (01) ==
LOC: HO.HOS 10:56
PROVIDERS: PCP Internal Medicine; Visit Provider Physician Assistant
DX: S42.031A Displaced fracture of lateral end of right clavicle, initial encounter for closed fracture (principal)
CPT/HCPCS: 99203; G2211

== ENCOUNTER → 2025-07-02 10:57 | Outpatient (BNV) | payer MEDICARE, SELFPAY | PROVIDERS: Visit Provider Radiology Diagnostic Radiology | DX: S42.031A Displaced fracture of lateral end of right clavicle, initial encounter for closed fracture (principal) | CPT/HCPCS: 73000 ==

== ENCOUNTER 2025-07-04 12:12 | Outpatient (AMB) | payer MEDICARE, SELFPAY ==
--- OUTSIDE RECORDS SUMMARY | 2025-07-04 12:15 | XMS_ITS | Patient Health Record ---
Author Organization [facility] Darrian hernandez [place] Address [address] [place] [address] Care Team Providers Care Lead Sales Consultant Name Role Phone Justo PRYOR, [place] Primary Care Provider Yosef Hammer Unavailable [phone] Allergies Allergen (clinical drug ingredient) Drug/Non Drug [...] Risk Notes Problem Sprain of calcaneofibular ligament (98876925) Ankle Sprain/Late ral Ankle Sprain (845.02) Active confirmed Problem Edema (17266036) Edema (782.3) Active confirmed Problem Pain in limb (95940502) Pain in Limb (729.5) Active confirmed Problem Sprain of foot (28317068) Sprain, Foot (845.10) Active confirmed Problem Acquired hammer toe of right foot (2847249510500699) Other hammer toe(s) (acquired), right foot (M20.41) Active confirmed Problem Acquired hammer toe of left foot (2508366165002150) Other hammer toe(s) (acquired), left foot (M20.42) Active confirmed Encounters Encounter Location Date Provider Diagnosis [facility] [address] [place] [address] 07/08/2024 Yosef Zhong Plan Of Treatment Pending Test Test Name Order Date X ray : Foot, left 2V 02/06/2012 X ray : Foot, right 2V 02/06/2012 X ray : Foot, right 3V 06/12/2013 [id number] Destruction, 1-14 02/06/2012 Insurance Providers Payer Name Payer Address Payer Phone Subscriber Number Group Number Insured Name Patient Relationship to Insured Coverage Start Date Coverage End Date [facility] [employer] S[employer] Claims [address] [place] [address] [id number] Eugenia Salguero Self - patient is the insured Medical (General) History Medical History History ICD Code thyroid disorder hepatitis Arthritis Back,Hip,and Knee pain Surgical History Surgery Date(Month/Year) Wrist surgery-left 01/25/13 Hospitalization History Reason Date(Month/Year) wrist surgery 01/25/13
--- OUTSIDE RECORDS SUMMARY | 2025-07-04 12:15 | XMS_ITS | Patient Health Record ---
Author Organization [facility] Address [address] [place] [address] Care Team Providers Care Engineering Specialist Name Role Phone Gaye Medrano MD Primary Care Provider Artur Carrington [phone] Allergies Allergen (clinical drug ingredient) Drug/Non Drug [...] Status Risk Notes Problem Colon cancer screening (146677852) Colon cancer screening (V76.51) Active confirmed Problem Long-term use of aspirin therapy (V58.66) Active confirmed Plan Of Treatment Future Test Test Name Order Date COLONOSCOPY 03/06/2015 Insurance Providers Payer Name Payer Address Payer Phone Subscriber Number Group Number Insured Name Patient Relationship to Insured Coverage Start Date Coverage End Date [facility] [address] [place] [phone] [id number] LISAILYAHOLLIS Betancur Self - patient is the insured Medical (General) History Medical History History ICD Code Denies [place],DM,CVA,Lung disease,renal dise ase Negative colonoscopy in 10/2005 She has some thyroid issues that is followed by Dr. Mcdonald, although she is presently not on any medication for that She had a barium swallow in May 2012 describing a small Zenker's diverticulum and small hiatal hernia Surgical History Surgery Date(Month/Year) Left wrist surgery for a fracture
--- NOTE | 2025-07-04 12:36 | A.OFFPC_ITS ---
Vital Signs 07/04/25 12:38 Height 5 ft 2 in Weight 138 lb BMI 25.2 BP 120/60 Blood Pressure Location Lt brachial Position Sitting Temp 97.3 F Temp Source Temporal Artery Scan Intake Visit Reasons: 4 month f/u Intake Note: Patient is here to follow up on LDDD, . Customs Import Specialist Required: No Ruffling Machine Operator: Present (Spouse and son) Accompanied by: Spouse Allergies iodine (IODINE) Allergy (Unknown, Verified 07/05/25 07:29) RASH, rash, itching, redness latex Allergy (Unknown, Verified 07/05/25 07:29) rash Medication List - Last Reconciled 07/05/25 by Pilo Kemp MD aspirin 81 mg PO DAILY atorvastatin 10 mg PO BEDTIME 90 days cholecalciferol (vitamin D3) 50 mcg PO DAILY lidocaine 5% 1 patch topical DAILY multivitamin (Daily Multi-Vitamin tablet) 1 tab PO DAILY naproxen 250 mg PO BID PRN oxycodone 5 mg PO .QHS 7 days Tobacco use date assessed: 07/04/25 Fall risk assessment: 1 Fall in past year Last assessed Fall Risk: 07/04/25 Dental Screening Dental Screen Date: 06/16/25 HPI 4 month f/u HPI Details Patient comes in today for her follow up visit States that she is currently feeling a little better and her pain is somewhat better controlled with Oxycodone 5 mg that she takes at bedtime, which she states allows her to get some sleep She was seen by orthopedics last week and was advised that distal clavicular fractures typically do not require surgical intervention States that her neck pain and back pain (from her rib fractures) have also decreased somewhat compared to previous She denies any headaches or dizziness Denies any chest pains, no increased SOB No nausea/vomiting, no abdominal pain No change in bowel habits noted She was not able to get her previously ordered follow up labs done prior to her appointment today [facility] Medical History Osteopenia Vitamin D deficiency History of deep venous thrombosis (DVT) of distal vein of right lower extremity (~07/2016) Lumbar degenerative disc disease Osteopenia of left femoral neck Postmenopause 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 Tubular adenoma of colon Complex regional pain syndrome of left upper extremity Fracture of right hip History of DVT (deep vein thrombosis) Fracture of left wrist 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 History of left breast cancer Surgical History S/P lumpectomy, left breast History of hip surgery H/O colonoscopy History of breast biopsy Family History Father Hx of stroke associated with congenital heart disease Mother Hyperthyroidism Social History Housing: House Alcohol intake: never Patient Tobacco Use Status: Never used Tobacco e-Cigarette/Vaping Use: Never Used Second Hand Smoke Exposure: No service: No Current occupational status: retired Sexual orientation: Straight/Heterosexual Gender identity: Female Cognitive needs: No Hearing needs: No Vision needs: Yes (Glasses) Questionnaire PHQ-9 Over the last 2 weeks, how often have you been bothered by any of the following problems? Depression Screening Interpretation: Positive Depression Screening Follow-up: Follow-up Visit Requested Depression Screening Done: Yes Source: Developed by Drs. Artur Adhikari, Bonnie Flor, Yash Palacios and colleagues, with an educational ivelisse from [employer]. Thrive Questionnaire Date Thrive assessed: 06/16/25 I am a: Parent/Caregiver What is your living situation today?: I have a steady place to live Within the past 12 months, did the food you bought not last and you didn't have the money to get more?: Never true Within the past 12 months, did you worry whether your food would run out before you got money to buy more?: Never true Do you have trouble paying for medicines?: No Do you have trouble getting transportation to medical appointments?: No Do you have trouble paying your heating and electricity bill?: No Do you have trouble taking care of your child, family member or friend?: No Do you have trouble with day-to-day activities such as bathing, preparing meals, shopping, managing finances, etc.?: No Are you currently unemployed and looking for a job?: No Are you interested in more education?: No Please select the resources that you would like help with: Care for elder or disabled Currently or been in a relationship where the following occur: No concerns reported THRIVE Score: 0 NATALIA-7 AMB Questionnaire NATALIA-7 Date NATALIA - 7 assessed: 06/16/25 Source: Developed by Drs. Artur Adhikari, Bonnie Flor, Yash Palacios and colleagues, with an educational ivelisse from [employer]. Review of Systems Const Denies chills, Reports fatigue, Denies fever(s) and Denies headache(s) ENT Denies dysphagia, Denies dizziness, Denies otalgia, Denies headache(s), Reports neck pain, Denies odynophagia and Denies sore throat Card Reports chest pain (mostly over the right chest wall area - related to her current injuries), Denies palpitations and Denies dyspnea Resp Denies chest congestion, Denies cough and Denies dyspnea GI Denies abdominal pain, Denies constipation, Denies dysphagia, Denies heartburn, Denies diarrhea, Denies nausea, Denies odynophagia and Denies vomiting Denies difficulty voiding, Denies nocturia, Denies dysuria and Denies urinary urgency Musc Reports back pain (over the lower back / SI joints; recently over the right upper back), Reports arthralgias (around the right shoulder area and over the left ankle), Reports joint swelling (over the left ankle) and Reports neck pain Skin/Breast Details: (+) scattered bruising on the right upper back and around the right shoulder and right upper arm Denies rash Neuro Denies dizziness and Denies headache(s) Endo Reports fatigue and Denies palpitations Physical exam (Primary Care) Vital Signs: Last Vital Signs Temp 97.3 F 07/04/25 12:38 BP 120/60 07/04/25 12:38 BMI result Body Mass Index 25.2 Tobacco/Smoking Status: Tobacco use Status Tobacco use date assessed 07/04/25 07/04/25 12:42 Patient Tobacco Use Status Never used Tobacco 07/04/25 12:42 e-Cigarette/Vaping Use Never Used 07/04/25 12:42 Depression Screening Interpretation: Positive Depression Screening Follow-up: Follow-up Visit Requested Thrive Assessment: Date of Thrive Assessment Date Thrive assessed 06/16/25 07/04/25 12:42 Currently or been in a relationship where the following occur: No concerns reported Const General: no acute distress and alert HENMT Throat: Yes posterior oropharynx normal and Yes tonsils normal (no TP congestion) Neck Neck: Yes supple and No lymphadenopathy Thyroid: Thyroid normal Chest Other: (+) tenderness on palpation over the right upper chest wall area Resp Auscultation: clear to auscultation bilaterally, no rales and no wheezes Cardio Rate: regular rate Rhythm: regular rhythm Heart sounds: no murmurs GI Palpation (GI): Soft to palpation and nontender Auscultation: normal bowel sounds General: Yes no CVA tenderness Back/Spine/Pelvis Back: no CVA tenderness and ecchymosis (scattered over the R upper back, around R shoulder and on R upper arm) Cervical Spine: cervical muscular tenderness (especially over the right side) Thoracic/Lumbar Spine: paraspinal muscle tenderness on the right in the upper thoracic and No lumbar spinal tenderness Skin Rashes: no rashes Extrem Other: (+) tenderness in the right shoulder on ROM General: Yes no clubbing, cyanosis or edema Left lower extremity: ankle Details: tenderness (mild) and swelling Details: laterally Coding Level of Care Code Est Pt Level 4 (93548) Diagnoses Pure hypercholesterolemia E78.00 Multinodular non-toxic goiter E04.2 History of left breast cancer Z85.3 Closed displaced fracture of acromial end of right clavicle, sequela S42.031S Encounter type: sequela Clavicle location: lateral end Fracture type: closed Fracture alignment: displaced Multiple fractures of ribs, right side, sequela S22.41XS Sprain of left ankle, unspecified ligament, subsequent encounter S93.402D Encounter type: subsequent encounter Involved ligament of ankle: unspecified ligament Status post fall Z91.81 Degeneration of intervertebral disc of lumbar region with discogenic back pain M51.360 Disc-related pain type: discogenic back pain only Pain of left sacroiliac joint M53.3 History of deep venous thrombosis (DVT) of distal vein of right lower extremity Z86.718 Vitamin D deficiency E55.9 Osteopenia of neck of left femur M85.852 Osteopenia location: femoral neck Laterality: left Assessment & Plan Assessment & Plan (1) Pure hypercholesterolemia: Code(s): E78.00 - Pure hypercholesterolemia, unspecified Category: Medical Plan: Patient was not able to get her previously ordered labs done prior to her appointment today Have reminded her that her cholesterol levels were still elevated when they were last checked a few months ago, with her total cholesterol at 221 mg/dL and LDL cholesterol at 158 mg/dL and that both were slightly higher than previous Continue Atorvastatin 10 mg QD for now but advised patient that we may need to consider increasing this to 20 mg daily at her next visit if her numbers do not improve significantly over the next few months Will have her recheck her labs and fasting lipids in 4 months for follow up - will just have patient use her current orders (updated) for her next lab draw (2) Multinodular non-toxic goiter: Comment: Currently euthyroid followed by Dr. High Code(s): E04.2 - Nontoxic multinodular goiter Category: Medical Plan: Her TSH level was normal on her labs done a few months ago Patient currently remains euthyroid with no acute symptoms Follow up with endocrinology (Dr. High) as scheduled (3) History of left breast cancer: Comment: Early invasive breast cancer, ER and DE positive, HER2 negative; S/P Tx with lumpectomy and radiation followed by Tx with Anastrozole x 5 years (completed in 2021) Code(s): Z85.3 - Personal history of malignant neoplasm of breast Category: Medical Plan: S/P Tx with lumpectomy, radiation and with aromatase inhibitors x 5 years - completed in 2021 Mammogram done most recently in November 2024 came out normal Follow up with oncology/surgery as scheduled for continuing surveillance (4) Right clavicle fracture: Code(s): S42.001A - Fracture of unspecified part of right clavicle, initial encounter for closed fracture Category: Medical Qualifiers: Encounter type: sequela Clavicle location: lateral end Fracture type: closed Fracture alignment: displaced Qualified Code(s): S42.031S - Displaced fracture of lateral end of right clavicle, sequela Plan: Right shoulder x-rays done last month revealed (+) acute superiorly displaced fracture distal right clavicle She was seen by orthopedics last week and was advised that surgery is not required She was provided with instructions on how to manage her injury over the next few weeks and will follow up again with orthopedics in a few weeks (5) Multiple fractures of ribs, right side, sequela: Code(s): S22.41XS - Multiple fractures of ribs, right side, sequela Category: Medical Plan: Chest CT done last month revealed (+) anterior right second and third rib fractures Cervical spine CT showed (+) posterior medial right second rib fracture Patient has been advised that there is not much else we need to do for her rib fractures and they should heal on their own slowly over time She can continue taking her current medications on an as-needed basis to help with her pain in the meantime, including tramadol 50 mg TID PRN (6) Left ankle sprain: Code(s): S93.402A - Sprain of unspecified ligament of left ankle, initial encounter Category: Medical Qualifiers: Encounter type: subsequent encounter Involved ligament of ankle: unspecified ligament Qualified Code(s): S93.402D - Sprain of unspecified ligament of left ankle, subsequent encounter Plan: Improving X-rays of the left ankle done a couple of weeks ago revealed only (+) soft tissue swelling with no fractures noted (7) Status post fall: Code(s): Z91.81 - History of falling Category: Medical Plan: Fall occurred last month on 06/06/2025 Patient is still experiencing significant pain due to her injuries and is quite limited with her daily activities at this time She lives alone with her , which is currently suffering from dementia and is not able to provide any help She has been referred for home health services and her son states that she will be receiving some help soon (8) Lumbar degenerative disc disease: Code(s): M51.36 - Other intervertebral disc degeneration, lumbar region Category: Medical Qualifiers: Disc-related pain type: discogenic back pain only Qualified Code(s): M51.360 - Other intervertebral disc degeneration, lumbar region with discogenic back pain only Plan: Reinforced activity and weight-lifting restrictions Lumbar spine x-rays done in January 2023 revealed (+) mild lumbar dextroscoliosis, with multilevel degenerative disc disease that appears most pronounced at L5-S1. Also (+) L3-L4 and L4-L5 mild grade 1 anterolisthesis Continue Tizanidine 4 mg Q HS PRN She was also following up with pain management regularly for her chronic low back pain - she was sent for physical therapy when she was seen back in September 2024 but it does not look like patient pursued physical therapy at all (9) Pain of left sacroiliac joint: Code(s): M53.3 - Sacrococcygeal disorders, not elsewhere classified Category: Medical Plan: Her pelvic and SI joint x-rays done in July 2023 revealed (+) right hip ORIF without evidence of hardware complication; no acute fracture or dislocation seen. (+) mild bilateral hip osteoarthritis and minimal degenerative arthritis within the bilateral sacroiliac joints. (+) degenerative disc disease and facet arthropathy within the partially visualized lower lumbar spine. Continue Lidocaine 5% patches to apply to the painful area over her left SI joint QD PRN for symptomatic relief She was referred to pain management previously and they in turn referred her to physical therapy, which patient apparently did not pursue (10) History of deep venous thrombosis (DVT) of distal vein of right lower extremity: Onset Date: ~07/2016 Comment: occurred in July 2016 following right hip surgery at the [facility] Code(s): Z86.718 - Personal history of other venous thrombosis and embolism Category: Medical Plan: She had a provoked DVT following right hip surgery in 2015; has had no recurrence since Continue Aspirin 81 mg QD (11) Vitamin D deficiency: Code(s): E55.9 - Vitamin D deficiency, unspecified Category: Medical Plan: Continue Vitamin D3 2000 units QD (12) Osteopenia: Code(s): M85.80 - Other specified disorders of bone density and structure, unspecified site Category: Medical Qualifiers: Osteopenia location: femoral neck Laterality: left Qualified Code(s): M85.852 - Other specified disorders of bone density and structure, left thigh Plan: Reinforced fall precautions Repeat BMD last done in October 2021 revealed (+) osteopenia based on the lowest T-score value of -2.2 in the femoral neck She is reminded to continue with her daily oral Calcium and Vitamin D intake and to exercise regularly and stay active to help slow down the decline in her BMD but to be careful and avoid falls and potential injuries Will have her repeat her BMD at her next follow up appt Plan Follow up in 4 months
[2025-07-04 12:38] VITALS: BP 120/60; TEMP 36.3; BMI 25.2
== END 2025-07-04 13:14 | disposition home or self-care (01) ==
LOC: HO.HMCH 12:13
PROVIDERS: PCP Internal Medicine; Visit Provider Internal Medicine
DX: E78.00 Pure hypercholesterolemia, unspecified (principal); E04.2 Nontoxic multinodular goiter; Z85.3 Personal history of malignant neoplasm of breast; S42.031S Displaced fracture of lateral end of right clavicle, sequela; S22.41XS Multiple fractures of ribs, right side, sequela; S93.402D Sprain of unspecified ligament of left ankle, subsequent encounter; Z91.81 History of falling; M51.360 Other intervertebral disc degeneration, lumbar region with discogenic back pain only; M53.3 Sacrococcygeal disorders, not elsewhere classified; Z86.718 Personal history of other venous thrombosis and embolism; E55.9 Vitamin D deficiency, unspecified; M85.852 Other specified disorders of bone density and structure, left thigh

== ENCOUNTER → 2025-07-04 12:12 | Outpatient (BNVA) | payer MEDICARE, SELFPAY | PROVIDERS: PCP Internal Medicine; Visit Provider Internal Medicine | DX: E04.2 Nontoxic multinodular goiter (principal); M54.9 Dorsalgia, unspecified; M54.2 Cervicalgia; E78.00 Pure hypercholesterolemia, unspecified; S42.031D Displaced fracture of lateral end of right clavicle, subsequent encounter for fracture with routine healing; S22.41XD Multiple fractures of ribs, right side, subsequent encounter for fracture with routine healing; S93.402D Sprain of unspecified ligament of left ankle, subsequent encounter; M51.360 Other intervertebral disc degeneration, lumbar region with discogenic back pain only; M53.3 Sacrococcygeal disorders, not elsewhere classified; E55.9 Vitamin D deficiency, unspecified; M85.852 Other specified disorders of bone density and structure, left thigh; W19.XXXD Unspecified fall, subsequent encounter; Z86.718 Personal history of other venous thrombosis and embolism; Z79.891 Long term (current) use of opiate analgesic; Z91.81 History of falling | CPT/HCPCS: 99212 ==

== ENCOUNTER 2025-08-14 09:39 | Outpatient (REF) | payer MEDICARE, SELFPAY ==
--- NOTE | ~2025-08-14 | XR_ITS ---
EXAMINATION: XR CLAVICLE RIGHT HISTORY: S42.009A - Fracture of unspecified part of unspecified clavicle, initial... COMPARISON: Comparison is made with the prior examination dated 07/02/2025. FINDINGS: Two views of the right clavicle are submitted. The bones are osteopenic. Again seen is a displaced fracture of the distal clavicle. The AC joint space is maintained. The soft tissues are unremarkable. XR/XR clavicle RT IMPRESSION: Displaced fracture of the distal right clavicle without significant change. Electronically signed by: Artur Gracia MD 08/14/2025 12:39 PM EDT
== END 2025-08-14 09:40 | disposition home or self-care (01) ==
LOC: HO.HOSX 09:39
PROVIDERS: Visit Provider Physician Assistant
DX: S42.031D Displaced fracture of lateral end of right clavicle, subsequent encounter for fracture with routine healing (principal); X58.XXXD Exposure to other specified factors, subsequent encounter
CPT/HCPCS: 73000; 99212

== ENCOUNTER 2025-08-14 11:37 | Outpatient (AMB) | payer MEDICARE, SELFPAY ==
--- NOTE | 2025-08-14 11:41 | A.OFFVIS_ITS ---
Vital Signs 08/14/25 12:02 Height 5 ft 2 in Weight 138 lb BMI 25.2 Intake Visit Reasons: OV-6wk f/u rt clavicle w xrays Intake Note: Eugenia is an 85 year old female who presents today for a follow up of right clavicle fracture. At her last visit she may discontinue use of sling at home, instructed to keep her arm by her side, no excessive reaching or carrying. She could use sling outside of house if more comfortable. Today patient reports she is doing well, states tenderness at the top of her shoulder. Allergies iodine (IODINE) Allergy (Unknown, Verified 08/14/25 12:03) RASH, rash, itching, redness latex Allergy (Unknown, Verified 08/14/25 12:03) rash Medication List - Last Reconciled 08/14/25 by Niyah Muñiz PA-C aspirin 81 mg PO DAILY atorvastatin 10 mg PO BEDTIME 90 days cholecalciferol (vitamin D3) 50 mcg PO DAILY lidocaine 5% 1 patch topical DAILY multivitamin (Daily Multi-Vitamin tablet) 1 tab PO DAILY naproxen 250 mg PO BID PRN oxycodone 5 mg PO .QHS 7 days HPI HPI OV-6wk f/u rt clavicle w xrays: Details: 85 yo female returns to the office today f/u right clavicle fx. She comes in today without concerns. She has been using the arm but not lifting over head. 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 History of left breast cancer Surgical History S/P lumpectomy, left breast History of hip surgery H/O colonoscopy History of breast biopsy Family History Father Hx of stroke associated with congenital heart disease Mother Hyperthyroidism Social History Housing: House Alcohol intake: never Patient Tobacco Use Status: Never used Tobacco e-Cigarette/Vaping Use: Never Used Second Hand Smoke Exposure: No service: No Current occupational status: retired Sexual orientation: Straight/Heterosexual Gender identity: Female Cognitive needs: No Hearing needs: No Vision needs: Yes (Glasses) Review of Systems Const All systems reviewed & are unremarkable except as noted in HPI and below Physical Exam Vital Signs: BMI result Body Mass Index 25.2 Const General: cooperative and no acute distress Orientation/consciousness: patient oriented x3 Resp Effort & Inspection: normal respiratory effort and able to speak in complete sentences Cardio Peripheral pulses: Peripheral pulses 2+ throughout Neuro General: patient oriented x3 Extrem Other: Right clavicle skin is intact there is no open wounds or skin breakdown. She does have a bony prominence over the distal clavicle. No tenderness to palpation. She has full sensation and pulses are intact. Results Reviewed Results Reviewed: X-rays of the right clavicle obtained in the office today and reviewed by me show a moderately displaced distal clavicle fracture with stable appearance Assessment & Plan Assessment & Plan (1) Right clavicle fracture: Code(s): S42.001A - Fracture of unspecified part of right clavicle, initial encounter for closed fracture Category: Medical Qualifiers: Encounter type: sequela Clavicle location: lateral end Fracture type: closed Fracture alignment: displaced Qualified Code(s): S42.031S - Displaced fracture of lateral end of right clavicle, sequela Plan: She can slowly progress activities as tolerated continuing to use caution with overhead reaching or lifting. I did explain it takes another 6 weeks for the fracture to be solid. If there is any concerns going forward she can contact our office otherwise follow up as needed. Orders: Orders XR clavicle RT Today S42.009A - Fracture of unspecified part of unspecified clavicle, initial encounter for closed fracture Coding Level of Care Code Global (28791) Diagnoses Closed displaced fracture of acromial end of right clavicle, sequela S42.031S Encounter type: sequela Clavicle location: lateral end Fracture type: closed Fracture alignment: displaced
[2025-08-14 12:02] VITALS: BMI 25.2
== END 2025-08-14 13:14 | disposition home or self-care (01) ==
LOC: HO.HOS 11:38
PROVIDERS: PCP Internal Medicine; Visit Provider Physician Assistant
DX: S42.031S Displaced fracture of lateral end of right clavicle, sequela (principal)
CPT/HCPCS: 99213

== ENCOUNTER → 2025-08-14 11:53 | Outpatient (BNV) | payer MEDICARE, SELFPAY | PROVIDERS: Visit Provider Radiology Diagnostic Radiology | DX: S42.031G Displaced fracture of lateral end of right clavicle, subsequent encounter for fracture with delayed healing (principal) | CPT/HCPCS: 73000 ==

== ENCOUNTER 2025-11-05 12:31 | Outpatient (AMB) | payer MEDICARE, SELFPAY ==
[2025-11-05 12:38] VITALS: BP 126/82; PULSE 84; O2SAT 95; BMI 26.8
--- NOTE | 2025-11-05 12:38 | MHC.PC.OV ---
Vital Signs 11/05/25 12:38 Height 5 ft 2 in Weight 146 lb 6 oz BMI 26.8 BP 126/82 Blood Pressure Location Lt brachial Position Sitting Pulse 84 Pulse Source Pulse Oximeter Pulse Oximetry (%) 95 Oxygen Delivery Method Room Air Intake Visit Reasons: [facility] f[facility] [employer] Required: No Accompanied by: Self / Same As Patient Allergies iodine (IODINE) Allergy (Unknown, Verified 11/05/25 12:49) RASH, rash, itching, redness latex Allergy (Unknown, Verified 11/05/25 12:49) rash Medication List - Last Reconciled 11/05/25 by Pilo Kemp MD aspirin 81 mg PO DAILY atorvastatin 10 mg PO BEDTIME 90 days cholecalciferol (vitamin D3) 50 mcg PO DAILY lidocaine 5% 1 patch topical DAILY multivitamin (Daily Multi-Vitamin tablet) 1 tab PO DAILY Tobacco use date assessed: 11/05/25 Fall risk assessment: 1 Fall in past year Last assessed Fall Risk: 11/05/25 Dental Screening Dental Screen Date: 11/05/25 Did you have a dental visit in the last 12 months?: Yes Did you have a dental problem in the last 6 months where you did not have access to dental care?: No Was dental information given to patient?: Patient has dentist HPI [facility] HPI Details Patient comes in today for her follow up visit States that she feels okay Notes that her right shoulder is now feeling a lot better and she is able to move her right arm (and shoulder) mostly with very little restrictions She still notes (+) mild pain in the shoulder with ROM at times but she has not needed to take any Rx for pain for a while now States that her neck pain and back pain (from her rib fractures) have also improved and no longer bother her She denies any headaches or dizziness Denies any chest pains, no increased SOB No nausea/vomiting, no abdominal pain No change in bowel habits noted Adds that she has been experiencing some mild dysuria at times and has had to wake up about 2 to 3 times in the middle of the night to use the bathroom for the past 2 to 3 days She was again not able to get her previously ordered follow up labs done prior to her appointment today [facility] Medical History Osteopenia Vitamin D deficiency History of deep venous thrombosis (DVT) of distal vein of right lower extremity (~07/2016) Lumbar degenerative disc disease Osteopenia of left femoral neck Postmenopause 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 Tubular adenoma of colon Complex regional pain syndrome of left upper extremity Fracture of right hip History of DVT (deep vein thrombosis) Fracture of left wrist 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 History of left breast cancer Surgical History S/P lumpectomy, left breast History of hip surgery H/O colonoscopy History of breast biopsy Family History Father Hx of stroke associated with congenital heart disease Mother Hyperthyroidism Social History Housing: House Alcohol intake: never Patient Tobacco Use Status: Never used Tobacco e-Cigarette/Vaping Use: Never Used Second Hand Smoke Exposure: No service: No Current occupational status: retired Sexual orientation: Straight/Heterosexual Gender identity: Female Cognitive needs: No Hearing needs: No Vision needs: Yes (Glasses) Questionnaire PHQ-9 Over the last 2 weeks, how often have you been bothered by any of the following problems? Depression Screening Interpretation: Positive Depression Screening Follow-up: Follow-up Visit Requested Depression Screening Done: Yes Source: Developed by Drs. Artur Adhikari, Bonnie Flor, Yash Palacios and colleagues, with an educational ivelisse from [employer]. Thrive Questionnaire Date Thrive assessed: 11/05/25 I am a: Parent/Caregiver What is your living situation today?: I have a steady place to live Within the past 12 months, did the food you bought not last and you didn't have the money to get more?: Never true Within the past 12 months, did you worry whether your food would run out before you got money to buy more?: Never true Do you have trouble paying for medicines?: No Do you have trouble getting transportation to medical appointments?: No Do you have trouble paying your heating and electricity bill?: No Do you have trouble taking care of your child, family member or friend?: No Do you have trouble with day-to-day activities such as bathing, preparing meals, shopping, managing finances, etc.?: No Are you currently unemployed and looking for a job?: No Are you interested in more education?: No Please select the resources that you would like help with: Care for elder or disabled Currently or been in a relationship where the following occur: No concerns reported THRIVE Score: 0 AUDIT C Alcohol Use Questionnaire (AUDIT-C) 1. How often do you have a drink containing alcohol?: Monthly or less 2. How many drinks containing alcohol do you have on a typical day when you are drinking?: 1 or 2 3. How often do you have six or more drinks on one occasion?: Never Total Score: 1 Score Reviewed/Action Taken: Yes NATALIA-7 AMB Questionnaire NATALIA-7 Date NATALIA - 7 assessed: 11/05/25 Feeling nervous, anxious, or on edge: 0 = Not at all Not being able to stop or control worryin = Not at all Worrying too much about different things: 0 = Not at all Trouble relaxin = Not at all Being so restless that it is hard to sit still: 0 = Not at all Becoming easily annoyed or irritable: 0 = Not at all Feeling afraid as if something awful might happen: 0 = Not at all Total NATALIA-7 score (0-4 normal; 5-9 mild; 10-14 moderate; 15-21 severe): 0 Source: Developed by Drs. Artur Adhikari, Bonnie Flor, Yash Palacios and colleagues, with an educational ivelisse from [employer]. Review of Systems Const Denies chills, Denies fatigue, Denies fever(s) and Denies headache(s) ENT Denies dysphagia, Denies dizziness, Denies otalgia, Denies headache(s), Reports neck pain (occasionally), Denies odynophagia and Denies sore throat Card Denies chest pain, Denies palpitations and Denies dyspnea Resp Denies chest congestion, Denies cough and Denies dyspnea GI Denies abdominal pain, Denies constipation, Denies dysphagia, Denies heartburn, Denies diarrhea, Denies nausea, Denies odynophagia and Denies vomiting Denies difficulty voiding, Reports nocturia (over the past 2 to 3 days), Reports dysuria (mild, in the past 2 to 3 days) and Denies urinary urgency Musc Reports back pain (over the lower back / SI joints, on and off), Reports arthralgias (still has some discomfort in the R shoulder with increased ROM) and Reports neck pain (occasionally) Skin/Breast Denies rash Neuro Denies dizziness and Denies headache(s) Endo Denies fatigue and Denies palpitations Physical exam (Primary Care) Vital Signs: Last Vital Signs Pulse 84 11/05/25 12:38 BP 126/82 11/05/25 12:38 Pulse Ox 95 11/05/25 12:38 Oxygen Delivery Method Room Air 11/05/25 12:38 BMI result Body Mass Index 26.8 Tobacco/Smoking Status: Tobacco use Status Tobacco use date assessed 11/05/25 11/05/25 12:41 Patient Tobacco Use Status Never used Tobacco 11/05/25 12:41 e-Cigarette/Vaping Use Never Used 11/05/25 12:41 Depression Screening Interpretation: Positive Depression Screening Follow-up: Follow-up Visit Requested Thrive Assessment: Date of Thrive Assessment Date Thrive assessed 11/05/25 11/05/25 12:41 Currently or been in a relationship where the following occur: No concerns reported Const General: no acute distress and alert HENMT Throat: Yes posterior oropharynx normal and Yes tonsils normal (no TP congestion) Neck Neck: Yes supple and No lymphadenopathy Thyroid: Thyroid normal Resp Auscultation: clear to auscultation bilaterally, no rales and no wheezes Cardio Rate: regular rate Rhythm: regular rhythm Heart sounds: no murmurs GI Palpation (GI): Soft to palpation and nontender Auscultation: normal bowel sounds General: Yes no CVA tenderness Back/Spine/Pelvis Back: no CVA tenderness Thoracic/Lumbar Spine: No lumbar spinal tenderness Skin Rashes: no rashes Extrem Other: (+) mild tenderness in the right shoulder on ROM General: Yes no clubbing, cyanosis or edema Coding Level of Care Code Est Pt Level 4 (02670) Diagnoses Pure hypercholesterolemia E78.00 Multinodular non-toxic goiter E04.2 History of left breast cancer Z85.3 Closed displaced fracture of acromial end of right clavicle, sequela S42.031S Clavicle location: lateral end Encounter type: sequela Fracture alignment: displaced Fracture type: closed Multiple fractures of ribs, right side, sequela S22.41XS Degeneration of intervertebral disc of lumbar region with discogenic back pain M51.360 Disc-related pain type: discogenic back pain only Pain of left sacroiliac joint M53.3 Dysuria R30.0 History of deep venous thrombosis (DVT) of distal vein of right lower extremity Z86.718 Vitamin D deficiency E55.9 Osteopenia of neck of left femur M85.852 Laterality: left Osteopenia location: femoral neck Assessment & Plan Assessment & Plan (1) Pure hypercholesterolemia: Code(s): E78.00 - Pure hypercholesterolemia, unspecified Category: Medical Plan: Patient was not able to get her previously ordered labs done prior to her appointment today Have reminded her that her cholesterol levels were still elevated when they were last checked a few months ago, with her total cholesterol at 221 mg/dL and LDL cholesterol at 158 mg/dL and that both were slightly higher than previous Continue Atorvastatin 10 mg QD for now but advised patient that we may need to consider increasing this to 20 mg daily at her next visit if her numbers do not improve significantly over the next few months Will have her recheck her labs and fasting lipids in 4 months for follow up - will just have patient use her current orders (updated) for her next lab draw (2) Multinodular non-toxic goiter: Comment: Currently euthyroid followed by Dr. High Code(s): E04.2 - Nontoxic multinodular goiter Category: Medical Plan: Her TSH level was normal on her labs done a few months ago Patient currently remains euthyroid with no acute symptoms Follow up with endocrinology (Dr. High) as scheduled (3) History of left breast cancer: Comment: Early invasive breast cancer, ER and [place] positive, HER2 negative; S/P Tx with lumpectomy and radiation followed by Tx with Anastrozole x 5 years (completed in 2021) Code(s): Z85.3 - Personal history of malignant neoplasm of breast Category: Medical Plan: S/P Tx with lumpectomy, radiation and with aromatase inhibitors x 5 years - completed in 2021 Mammogram done most recently in November 2024 came out normal Follow up with oncology/surgery as scheduled for continuing surveillance (4) Right clavicle fracture: Code(s): S42.001A - Fracture of unspecified part of right clavicle, initial encounter for closed fracture Category: Medical Qualifiers: Clavicle location: lateral end Encounter type: sequela Fracture alignment: displaced Fracture type: closed Qualified Code(s): S42.031S - Displaced fracture of lateral end of right clavicle, sequela Plan: Resolving - s/p fall on 06/06/2025 Right shoulder x-rays done back in May 2025 revealed (+) acute superiorly displaced fracture distal right clavicle She was subsequently seen by orthopedics and was advised that surgery is not required Her most recent clavicular x-ray done in July 2025 revealed (+) displaced fracture of the distal right clavicle without significant change She was advised by orthopedics then that she can slowly progress activities as tolerated but continue to practice caution with overhead reaching or lifting and that it may take another 6 weeks or so for the fracture to slowly heal up Follow up with orthopedics as scheduled or as needed (5) Multiple fractures of ribs, right side, sequela: Code(s): S22.41XS - Multiple fractures of ribs, right side, sequela Category: Medical Plan: Chest CT done a few months ago revealed (+) anterior right second and third rib fractures Cervical spine CT showed (+) posterior medial right second rib fracture Patient has been advised that there is not much else we need to do for her rib fractures and they should heal on their own slowly over time She can continue taking her Tramadol for pain on an as-needed basis - states that she has not needed to take Tramadol in a while now (6) Lumbar degenerative disc disease: Code(s): M51.36 - Other intervertebral disc degeneration, lumbar region Category: Medical Qualifiers: Disc-related pain type: discogenic back pain only Qualified Code(s): M51.360 - Other intervertebral disc degeneration, lumbar region with discogenic back pain only Plan: Reinforced activity and weight-lifting restrictions Lumbar spine x-rays done in January 2023 revealed (+) mild lumbar dextroscoliosis, with multilevel degenerative disc disease that appears most pronounced at L5-S1. Also (+) L3-L4 and L4-L5 mild grade 1 anterolisthesis Continue Tizanidine 4 mg Q HS PRN She was also following up with pain management regularly for her chronic low back pain - she was sent for physical therapy when she was seen back in September 2024 but it does not look like patient pursued physical therapy at all (7) Pain of left sacroiliac joint: Code(s): M53.3 - Sacrococcygeal disorders, not elsewhere classified Category: Medical Plan: Her pelvic and SI joint x-rays done in July 2023 revealed (+) right hip ORIF without evidence of hardware complication; no acute fracture or dislocation seen. (+) mild bilateral hip osteoarthritis and minimal degenerative arthritis within the bilateral sacroiliac joints. (+) degenerative disc disease and facet arthropathy within the partially visualized lower lumbar spine. Continue Lidocaine 5% patches to apply to the painful area over her left SI joint QD PRN for symptomatic relief She was referred to pain management previously and they in turn referred her to physical therapy, which patient apparently did not pursue (8) Dysuria: Code(s): R30.0 - Dysuria Category: Medical Plan: Will send her for U/A ELÍAS for further evaluation Advised patient that we will reach out to her as soon as we have the results of her urine test and will treat her accordingly if her test shows any evidence of a UTI (9) History of deep venous thrombosis (DVT) of distal vein of right lower extremity: Onset Date: ~07/2016 Comment: occurred in July 2016 following right hip surgery at the [facility] Code(s): Z86.718 - Personal history of other venous thrombosis and embolism Category: Medical Plan: She had a provoked DVT following right hip surgery in 2015; has had no recurrence since Continue Aspirin 81 mg QD (10) Vitamin D deficiency: Code(s): E55.9 - Vitamin D deficiency, unspecified Category: Medical Plan: Continue Vitamin D3 2000 units QD (11) Osteopenia: Code(s): M85.80 - Other specified disorders of bone density and structure, unspecified site Category: Medical Qualifiers: Laterality: left Osteopenia location: femoral neck Qualified Code(s): M85.852 - Other specified disorders of bone density and structure, left thigh Plan: Reinforced fall precautions Repeat BMD last done in October 2021 revealed (+) osteopenia based on the lowest T-score value of -2.2 in the femoral neck She is reminded to continue with her daily oral Calcium and Vitamin D intake and to exercise regularly and stay active to help slow down the decline in her BMD but to be careful and avoid falls and potential injuries Will have her repeat her BMD at her next follow up appt Plan Follow up in 4 months Orders: Orders UA CC w/rflx Micro + Cult 02/25/26 R30.0 - Dysuria TSH reflex Free T4 02/25/26 E78.00 - Pure hypercholesterolemia, unspecified Vitamin D 25-OH Total 02/25/26 E55.9 - Vitamin D deficiency, unspecified UA CC w/rflx Micro + Cult 11/06/25 R30.0 - Dysuria
== END 2025-11-05 14:10 | disposition home or self-care (01) ==
LOC: HO.HMCH 12:31
PROVIDERS: PCP Internal Medicine; Visit Provider Internal Medicine
DX: E78.00 Pure hypercholesterolemia, unspecified (principal); E04.2 Nontoxic multinodular goiter; Z85.3 Personal history of malignant neoplasm of breast; S42.031S Displaced fracture of lateral end of right clavicle, sequela; S22.41XS Multiple fractures of ribs, right side, sequela; M51.360 Other intervertebral disc degeneration, lumbar region with discogenic back pain only; M53.3 Sacrococcygeal disorders, not elsewhere classified; R30.0 Dysuria; Z86.718 Personal history of other venous thrombosis and embolism; E55.9 Vitamin D deficiency, unspecified; M85.852 Other specified disorders of bone density and structure, left thigh

== ENCOUNTER → 2025-11-05 12:31 | Outpatient (BNVA) | payer MEDICARE, SELFPAY | PROVIDERS: PCP Internal Medicine; Visit Provider Internal Medicine | DX: E04.2 Nontoxic multinodular goiter (principal); E78.00 Pure hypercholesterolemia, unspecified; S42.031S Displaced fracture of lateral end of right clavicle, sequela; S22.41XS Multiple fractures of ribs, right side, sequela; M51.360 Other intervertebral disc degeneration, lumbar region with discogenic back pain only; M53.3 Sacrococcygeal disorders, not elsewhere classified; R30.0 Dysuria; E55.9 Vitamin D deficiency, unspecified; M85.852 Other specified disorders of bone density and structure, left thigh; Z86.718 Personal history of other venous thrombosis and embolism; Z85.3 Personal history of malignant neoplasm of breast; Z13.31 Encounter for screening for depression; Z13.39 Encounter for screening examination for other mental health and behavioral disorders | CPT/HCPCS: 96127; 99212 ==

== ENCOUNTER 2025-11-06 10:34 | Outpatient (REF) | payer MEDICARE, SELFPAY ==
[2025-11-06 12:13] LABS: Appearance Urine Clear; Glucose Urine UA Negative (Negative); PH 5.5 (5.0-9.0); Specific Gravity - Urine 1.015 (1.005-1.025); UMIC TRIGGER UACC YES
== END 2025-11-06 10:35 ==
LOC: HO.LAB 10:34
PROVIDERS: Visit Provider Internal Medicine
DX: R30.0 Dysuria (principal)
CPT/HCPCS: 81001; 81003